=== PATIENT | female | born 1965 | race Caucasian/White ===

== ENCOUNTER 2017-04-08 10:31 | Emergency (ER) | payer MEDICARE, MEDICAID ==
[2017-04-08 14:07] VITALS: BP 142/93
--- NOTE | 2017-04-09 15:06 | ER ---
DATE SEEN: 04/08/2017 CHIEF COMPLAINT: Tick bite. HISTORY OF PRESENT ILLNESS: Lakeshia is a 52-year-old woman, a smoker, who sleeps with her dog at night, has chronic low back pain secondary to previous back surgery, status post gastric bypass years ago, 96 pounds weight loss, absent upper teeth, and status post hysterectomy, bilateral BSO. Comes in with history of a tick bite noted 6 to 7 days ago. The tick was on her skin. She is not sure how long it was present. It was on her superior bra line, left subscapular region. She was seen by Dr. Mason at [place] on 04/06/2017 (2 days ago). The tick bite occurred approximately 6 to 8 days ago. She is not sure if she noted this at 6 days ago tick bite, but it could have been present longer than that, she is not certain how long it has been. She has associated symptoms of tiredness, extremely lightheaded. Feels chills, hot and cold, and weak and malaise. She started doxycycline [address] Mason 100 mg b.i.d. She describes the lesion as a target lesion. PAST MEDICAL HISTORY: No past medical history or other serious illnesses except as noted above. Other past medical history; migraines, chronic low back pain, suicidal ideation, depression, and chronic pain syndrome associated with the back. REVIEW OF SYSTEMS: Negative except as noted above. ALLERGIES: Adhesive, Amoxil, cephalexin, and sulbactam. MEDICATIONS: 1. Hydroxyzine 25 mg q.6 hours. 2. Acetaminophen with caffeine - Excedrin for tension headache. 3. Alprazolam 0.5 mg b.i.d. as needed. 4. Morphine sulfate. 5. MS Contin 60 mg q.12 hours. 6. Prozac 80 mg daily. OTHER DIAGNOSES: 1. Migraine. 2. Depression. 3. Chronic pain syndrome. 4. Suicidal ideation. 5. Low back pain. 6. Smoker. PHYSICAL EXAMINATION: VITAL SIGNS: Blood pressure 148/88, heart rate 70, respirations 18, oxygen saturation 100%, and temperature is 36.8 degrees centigrade. HEENT: PERRLA intact. The patient is asthenic. GENERAL/CONSTITUTIONAL: Somewhat thin, short stature, moderate [place] feet (reflecting her smoking), in mild distress and just concerned about the tick bite. HEENT: PERRLA intact. Pharynx without abnormality. No thyromegaly or masses. NECK: No cervical adenopathy. LUNGS: Clear to auscultation without rales, rhonchi, or wheezes. HEART: S1, S2. No murmur. No irregular rate or rhythm. ABDOMEN: Soft. No hepatosplenomegaly, guarding, or abdominal discomfort. DERMIS: Negative except for noted the 3.3 cm superior bra line insect bite, very close to the left posterior axillary line. She has mild central clearing with eschar centrally about 3 mm and peripheral mild erythema. No palpable ridge. No axillary adenopathy. Old scar noted in the lumbar region. NEUROLOGIC: Deep tendon reflexes hypoactive upper and lower extremities. Cranial nerves 2 through 12 intact. Oriented x3. ASSESSMENT: 1. Tick bite. 2. Probable Lyme's. 3. She has a picture of the tick and the tick did not have red discoloration, however, it is difficult to tell on the basis of the light even though she had good light but the tick is mostly a black appearance, looks like a common wood tick and not Ixodes. 4. She has associated mild headache, moderate tiredness, moderate lightheadedness, and slight sore throat. She has chills, hot and cold feeling, and mild arthritis in the PCP joint, right greater than left. No erythema of the hands. No other arthritis. Repeat neurological exam, the patient does not have ataxia. There is no past-pointing. Cranial nerves 2 through 12 intact. The cranial nerve 7 sensation is intact. No asymmetry of the face. No dysesthesia of the face. She is oriented x3 and gait is appropriate. No ataxia. She has no scleral icterus. LABORATORY FINDINGS: White count is normal at 7100, PMNs 59, lymphs 30, platelets 303,000, and hemoglobin 13.7 (no thrombocytopenia, no anemia, no low hemoglobin, no neutrophilia, no suggestion of hemolysis). Complete metabolic panel is normal. Sodium 136, potassium 3.6, chloride 102, CO2 of 28, BUN 7, creatinine 0.6, GFR greater than 60, glucose 104, uric acid 4.4, calcium normal at 8.8, AST 16, ALT is low at 11, alkaline phosphatase is the only laboratory in the complete metabolic panel that is elevated and is 155, normal is less than 154, so there is minimal elevation of alkaline phosphatase. Amylase is normal at 32. Blood cultures obtained. PCR for babesiosis and PCR for anaplasmosis have been ordered. PLAN: Status was discussed with Dr. Mcgovern, Infectious Disease, [place]. I had a wonderful consultation with Dr. Mcgovern. He provided the following comments: 1. He did not think this was Lyme disease; however, this is remotely possible. And if it is, it is the early signs. 2. The malaise, tiredness, and lightheadedness might be related to dehydration - the patient is not dehydrated, consequently it is not dehydration. 3. These symptoms may be related to Jarisch-Herxheimer reaction, which is very common. 4. It could be a drug-like mediated reaction. 5. It could be early lupus drug reaction, which is unlikely. 6. Also she could have mild gout (she has normal uric acid, the probability of gout is low). To summarize, she has simply localized reaction. No vertigo. No [place] symptoms. No signs suggestive of latent Lyme's or no suggestion of babesiosis. If she has babesiosis, the lab test would come back abnormal, and she could be treated later. It is not critical on the basis of this discussion. Also the literature suggests with Lyme's, target lesions are infrequent with central clearing 9% of the time, central erythema 32% of the time, and homogeneous erythema 59% of the time (The notion of target lesion is not altogether uniform and is less than the expected - these are in patient's who had documented PCR Lyme disease). Dr. Mcgovern also noted that the patient can sometimes have drug reaction-like symptoms with doxycycline - malaise, tiredness, and feel miserable with the doxycycline and it is not unusual. The symptoms the patient has been having may not truly be from Lyme's, but may be from the doxycycline. The patient was reassured that she is menopausal, not , as she started the doxycycline. Followup with doctor in a week. The patient does not have streptococcal pharyngitis. The patient is informed of this information. Initially, the patient wanted very much to be admitted to the hospital. She feels miserable. Per discussion with Dr. Mcgovern, the patient does not have latent Lyme's, does not require Rocephin IV or IM on a daily basis. He also stated it is not unusual to have a drug reaction to doxycycline, which makes patients feel sick. /[id number] ALCON/TYLER
== END 2017-04-08 14:20 | disposition home or self-care (01) ==
LOC: FB.ED 10:31
DX: S20.362A Insect bite (nonvenomous) of left front wall of thorax, initial encounter (principal); R51 Headache; R42 Dizziness and giddiness; J02.9 Acute pharyngitis, unspecified; Z88.1 Allergy status to other antibiotic agents; Z88.8 Allergy status to other drugs, medicaments and biological substances; Z79.899 Other long term (current) drug therapy
CPT/HCPCS: 36415; 80053; 82150; 83615; 84550; 85025; 86666; 87040; 87081; 87430; 87798; 88104; 99283

== ENCOUNTER 2017-11-03 08:30 | Day surgery (SDC) | payer MEDICARE, MEDICAID ==
[2017-11-03] MEDS ORDERED: Lidocaine 2% 100 MG/5 ML Syringe IVPUSH ONE (10:00)
[2017-11-03] MEDS ORDERED: Midazolam 1 MG/ML 2 ML SDV IV ONE (10:00)
[2017-11-03] MEDS ORDERED: Lactated Ringers 1,000 ML IV SCH (10:00)
[2017-11-03] MEDS ORDERED: Sodium Chloride 0.9% 10 ML Syringe FLUSH PRN (10:00)
[2017-11-03] MEDS ORDERED: Propofol 200 MG/20 ML SDV IV ONE (10:00)
--- NOTE | 2017-11-03 11:38 | OR ---
DATE OF OPERATION: 11/03/2017 SURGEON: Zafar Huber MD PROCEDURE PERFORMED: Upper endoscopy. PREOPERATIVE DIAGNOSES: Epigastric abdominal pain, status post gastric bypass. POSTOPERATIVE DIAGNOSIS: Esophagitis. INDICATIONS FOR PROCEDURE: This is a 52-year-old white female, who is referred with a history of some epigastric abdominal discomfort. She was offered and accepted upper endoscopy. She had a gastric bypass performed about 4 years ago. DESCRIPTION OF OPERATION: After an excellent IV sedation was administered, the bite-block was inserted. The flexible endoscope was passed without difficulty down the patient's esophagus and the GE junction measured approximately 40 cm. A small gastric remnant was encountered and the Margie limb was encountered. The following findings were noted. On both limbs of the gastric bypass, Margie limb are unremarkable. The gastric pouch is not noted to be markedly enlarged and shows no signs of inflammation. The GE junction noted some signs of irritation. Biopsies were taken. The remainder of the esophageal exam was unremarkable. The scope was removed. The patient tolerated the procedure well, and was taken to recovery room in good condition. /[id number] /NICHOLEL
== END 2017-11-03 11:20 | disposition home or self-care (01) ==
LOC: FB.SDS 08:30
PROVIDERS: ATTEND Surgery
DX: K29.50 Unspecified chronic gastritis without bleeding (principal); K20.9 Esophagitis, unspecified; F33.2 Major depressive disorder, recurrent severe without psychotic features; F41.1 Generalized anxiety disorder; M54.5 Low back pain; G89.29 Other chronic pain; Z88.1 Allergy status to other antibiotic agents; Z88.2 Allergy status to sulfonamides; Z88.8 Allergy status to other drugs, medicaments and biological substances; Z91.09 Other allergy status, other than to drugs and biological substances; Z79.899 Other long term (current) drug therapy; Z98.84 Bariatric surgery status; J45.909 Unspecified asthma, uncomplicated; F17.210 Nicotine dependence, cigarettes, uncomplicated
CPT/HCPCS: 00740; 43239; 88305; 88313; J2250; J2704; J7120

== ENCOUNTER 2018-03-15 10:52 | Emergency (ER) | payer MEDICARE, MEDICAID ==
[2018-03-15] MEDS ORDERED: Morphine 2 MG/ML Syringe IVPUSH ONE ×4 (11:27→13:15)
[2018-03-15] MEDS: Sodium Chloride 0.9% 10 ML Syringe FLUSH PRN ×2 (11:38→13:38)
[2018-03-15] MEDS ORDERED: Morphine 4 MG/ML Syringe IVPUSH ONE (12:45)
[2018-03-15] MEDS ORDERED: Morphine 2 MG/ML Syringe ONE (13:32)
--- NOTE | 2018-03-15 13:54 | CT ---
INDICATION: Trauma. Fell. CT PELVIS WITHOUT CONTRAST: Spiral 2.5-mm axial sections were obtained through the pelvis with sagittal and coronal reconstructions and revealed evidence of disk spacers at L4-5 and L5-S1, which appear to be intact. Sacroiliac joints and hip joints appear to be intact with degenerative changes at those joints, including some narrowing at the hip joint spaces cranial laterally. Hypertrophic spurring is present at sacroiliac and hip joints. A fracture or dislocation was not identified. IMPRESSION: 1. No acute fracture or dislocation. 2. Osteoarthritis with hypertrophic spurring at the hip joints and sacroiliac joints and suggestion of mild narrowing at the cranial lateral aspects of the hip joints, left slightly greater than right. Total Exam DLP = 840.85 mGy-cm. MTDD
--- NOTE | 2018-03-15 14:21 | CT ---
INDICATION: Chronic pain, fell backwards. Pain at posterior pelvis and above surgical site. History of L4-5 fusion in 2011. History of laminectomy 1987, 1991. CT LUMBOSACRAL SPINE: Spiral 2.5-mm axial sections were obtained through the lumbosacral spine with sagittal and coronal reconstructions and reconstructions through the disk spaces of L3-4, L4-5, and L5-S1. Total Exam DLP = 839.00 mGy-cm. Fusions are noted at L2-3 and L3-4 with separate plates and 4 screws for each plate at the L2-3 and L3-4 vertebral bodies, with the plates being on the right lateral aspect of the vertebral bodies. At L4-5 and L5-S1, disk spacers x2 each are noted at those disk spaces. Bridging hyperostotic change is noted left laterally at the L2-3, L3-4 levels. The plates and screws appear to be intact. Disk spacers are also noted at the L2-3 and L3-4 levels. The post-surgical appearance is satisfactory. Laminectomies are noted on the left at L5 with minimal bilateral laminectomy at L4. No definite complicating process was identified. No definite fracture or dislocation was seen. Vertebral body heights were maintained. IMPRESSION: 1. No definite acute fracture or dislocation. 2. Fairly extensive surgery with fusions and disk spacers. Report was called to Dr. Carroll at 1219 hours, 03/15/2018. [facility]
--- NOTE | 2018-03-15 14:22 | EDM.PDOC ---
ED HPI GENERAL MEDICAL PROBLEM - General Chief Complaint: Back Pain or Injury Stated Complaint: LEFT BACK PAIN Time Seen by Provider: 03/15/18 10:52 Source of Information: Reports: Patient, EMS History Limitations: Reports: Physical Impairment (chronic pain syndrome) - History of Present Illness INITIAL COMMENTS - FREE TEXT/NARRATIVE: 53 y.o.w.f with a h/o chronic pain syndrome came to the ed after her right leg gave out and she fell onto her lower back and pelvis. Pt was brought by ems the ed on a long back board, Ramos collar was applied by the nurse initially. HEENT nl, neck: Nl, Pt was turned to the left side as a unit. The did not show a step off sign, however she was tender at her mid lower back and buttock bilaterally. Neuro: No focal weakness. Her BP was 135/87 pulse was 76 RR 16 Pulse ox was 100 , temp 36.6 2 MG of MS were given i.v, ICE was applied to the affected pain full areas. JNo N/V/D. no lightheadedness. Onset Date: 03/15/18 Onset Time: 08:00 Duration: Hour(s): Location: Reports: Back, Pelvis Quality: Reports: Ache, Dull, Pressure, Same as Previous Episode Severity: Moderate Improves with: Reports: Rest Worsens with: Reports: Movement Context: Reports: Trauma (fall to lower back and pelvis) Associated Symptoms: Reports: No Other Symptoms mid back pain Pain Score (Numeric/FACES): 10 - Related Data Allergies Allergy/AdvReac Type Severity Reaction Status Date / Time adhesive Allergy irritated Verified 03/15/18 12:15 skin ampicillin [From Unasyn] Allergy Itching Verified 03/15/18 12:15 ampicillin sodium Allergy Rash Verified 03/15/18 12:15 [From Unasyn] carisoprodol [From Soma] Allergy Confusion Verified 03/15/18 12:15 cephalexin [Cephalexin] Allergy Rash Verified 03/15/18 12:15 omega-3 acid ethyl esters Allergy Rash Verified 03/15/18 12:15 quetiapine [From Seroquel] Allergy Confusion Verified 03/15/18 12:15 sulbactam [From Unasyn] Allergy Itching Verified 03/15/18 12:15 sulbactam sodium Allergy Rash Verified 03/15/18 12:15 [From Unasyn] Home Meds: Home Meds Morphine Sulfate [Ms Contin] 60 mg PO Q12H #11 tablet.er 03/25/16 [Rx] ClonazePAM [KlonoPIN] 1 tab PO ASDIRECTED PRN 11/02/17 [History] FLUoxetine HCl [Fluoxetine HCl] 80 mg PO DAILY 11/02/17 [History] Omeprazole 1 cap PO DAILY 11/02/17 [History] Ondansetron [Zofran] 4 mg PO TID PRN 11/02/17 [History] Past Medical History HEENT History: Reports: Impaired Vision Cardiovascular History: Reports: High Cholesterol, Hypertension Respiratory History: Reports: Asthma Gastrointestinal History: Reports: Irritable Bowel Syndrome, [employer] History: Reports: 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, Other OB/BYN History: hysterectomy Musculoskeletal History: Reports: Arthritis, Back Pain, Chronic Other Musculoskeletal History: back fusion Neurological History: Reports: Migraines Psychiatric History: Reports: Anxiety, Depression Endocrine/Metabolic History: Reports: Obesity/BMI 30+ - Past Surgical History GI Surgical History: Reports: Appendectomy, Cholecystectomy, Other (See Below) Other GI Surgeries/Procedures: gastric bypass Female Surgical History: Reports: Hysterectomy Other Musculoskeletal Surgeries/Procedures:: BACK SURGERY Social & Family History - Family History Family Medical History: Noncontributory - Tobacco Use Smoking Status *Q: Current Every Day Smoker Years of Tobacco use: 30 Packs/Tins Daily: 1 Used Tobacco, but Quit: No Second Hand Smoke Exposure: Yes - Caffeine Use Caffeine Use: Reports: Soda - Recreational Drug Use Recreational Drug Use: No - Living Situation & Occupation Living situation: Reports: ED ROS GENERAL - Review of Systems Review Of Systems: See Below Constitutional: Reports: No Symptoms HEENT: Reports: No Symptoms Respiratory: Reports: No Symptoms Cardiovascular: Reports: No Symptoms Endocrine: Reports: No Symptoms GI/Abdominal: Reports: No Symptoms : Reports: No Symptoms Musculoskeletal: Reports: Back Pain, Muscle Pain Skin: Reports: No Symptoms Neurological: Reports: Difficulty Walking (due to back pain) Psychiatric: Reports: No Symptoms Hematologic/Lymphatic: Reports: No Symptoms Immunologic: Reports: No Symptoms ED EXAM,LOWER BACK PAIN/INJURY - Physical Exam Exam: See Below Exam Limited By: Physical Impairment General Appearance: Alert, WD/WN, Mild Distress Eye Exam: Bilateral Eye: Normal Inspection Ears: Normal External Exam Nose: Normal Inspection Throat/Mouth: Normal Inspection, Normal Lips Head: Atraumatic, Normocephalic Neck: Normal Inspection, Supple, Non-Tender, Full Range of Motion Respiratory/Chest: No Respiratory Distress, Lungs Clear, Normal Breath Sounds, Chest Non-Tender Cardiovascular: Normal Peripheral Pulses, Regular Rate, Rhythm, No Edema, No Gallop, No JVD, No Murmur GI/Abdominal: Normal Bowel Sounds, Soft, Non-Tender, No Organomegaly, No Distention, No Abnormal Bruit, No Mass, Pelvis Stable (Female) Exam: Deferred Rectal (Female) Exam: Deferred Back Exam: Normal Inspection, Decreased Range of Motion (due to pain), Muscle Spasm Extremities: Normal Inspection, Normal Range of Motion, Non-Tender, No Pedal Edema, Normal Capillary Refill Neurological: Alert, Normal Mood/Affect, CN II-XII Intact, Oriented x 3 Psychiatric: Depressed Mood Skin Exam: Warm, Dry, Intact, Normal Color, No Rash Lymphatic: No Adenopathy Course - Vital Signs Text/Narrative:: 53 y.o.w.f with a h/o chronic pain syndrome came to the ed after her right leg gave out and she fell onto her lower back and pelvis. Pt was brought by ems the ed on a long back board, Ramos collar was applied by the nurse initially. HEENT nl, neck: Nl, Pt was turned to the left side as a unit. The did not show a step off sign, however she was tender at her mid lower back and buttock bilaterally. Neuro: No focal weakness. Her BP was 135/87 pulse was 76 RR 16 Pulse ox was 100 , temp 36.6 2 MG of MS were given i.v, ICE was applied to the affected pain full areas. JNo N/V/D. no lightheadedness PE: 53 y.o.w.f with a h/o chronic pain syndrome came to the ed by EMS after a fall to her lower back, unable to walk due to pain. Imaging: CT of lumbar spine and pelvis were neg as per RAD Labs: Not indicated. Impression: Chronic pain syndrome, fall, with lower back pain Tx: Ice, MS, Reexam: Improved. Pt was able to ambulate on D/C Plan: D/C with instructions. Last Recorded V/S: Last Vital Signs Temp 36.7 C 03/15/18 14:30 Pulse 75 03/15/18 14:30 Resp 18 03/15/18 14:30 BP 137/99 H 03/15/18 14:30 Pulse Ox 100 03/15/18 14:30 - Orders/Labs/Meds Meds: Medications Discontinued Medications Generic Name Dose Route Start Last Admin Trade Name Markyq PRN Reason Stop Dose Admin Morphine Sulfate 1 mg 03/15/18 11:27 03/15/18 11:45 Morphine IVPUSH 03/15/18 11:28 1 mg ONETIME ONE Administration Morphine Sulfate 1 mg 03/15/18 13:15 03/15/18 13:27 Morphine IVPUSH 03/15/18 13:16 1 mg ONETIME ONE Administration Morphine Sulfate Confirm 03/15/18 13:32 Morphine Administered 03/15/18 13:33 Dose 2 mg .ROUTE .STK-MED ONE Sodium Chloride 10 ml 03/15/18 11:37 03/15/18 13:38 Saline Flush FLUSH 03/15/18 14:00 10 ml ASDIRECTED PRN Administration IV Use Departure - Departure Time of Disposition: 14:19 Disposition: Home, Self-Care 01 Condition: Good Clinical Impression: Chronic pain Qualifiers: Chronic pain type: chronic pain syndrome Qualified Code(s): G89.4 - Chronic pain syndrome Injury of back due to fall Qualifiers: Encounter type: subsequent encounter Qualified Code(s): S39.92XD - Unspecified injury of lower back, subsequent encounter - Discharge Information Instructions: Chronic Pain, Adult Referrals: Jabari Mason MD [Primary Care Provider] - Forms: ED Department Discharge Additional Instructions: Please apply ice to the affected areas, please cont your meds, follow up with the pain clinic, come back if your symptoms get worse acutely
[2018-03-15 14:40] VITALS: BP 137/99
== END 2018-03-15 14:30 | disposition home or self-care (01) ==
LOC: FB.ED 10:52
DX: G89.4 Chronic pain syndrome (principal); S39.92XD Unspecified injury of lower back, subsequent encounter; F17.210 Nicotine dependence, cigarettes, uncomplicated; I10 Essential (primary) hypertension; F41.9 Anxiety disorder, unspecified; F32.9 Major depressive disorder, single episode, unspecified; J45.909 Unspecified asthma, uncomplicated; Z79.899 Other long term (current) drug therapy; Z88.1 Allergy status to other antibiotic agents; Z88.8 Allergy status to other drugs, medicaments and biological substances; Z91.09 Other allergy status, other than to drugs and biological substances; W19.XXXD Unspecified fall, subsequent encounter
CPT/HCPCS: 72131; 72192; 96374; 96376; 99284; J2270; J7050

== ENCOUNTER 2018-07-12 07:21 | Observation (INO) | payer MEDICARE, MEDICAID ==
[2018-07-12] MEDS ORDERED: HYDROmorphone 2 MG/ML SDV IM ONE ×3 (08:00→11:29)
--- NOTE | 2018-07-12 08:07 | EDM.PDOC ---
ED HPI GENERAL MEDICAL PROBLEM - General Chief Complaint: Behavioral/Psych Stated Complaint: BACK PAIN Time Seen by Provider: 07/12/18 08:01 Source of Information: Reports: Patient, EMS, EMS Notes Reviewed, Old Records History Limitations: Reports: No Limitations - History of Present Illness INITIAL COMMENTS - FREE TEXT/NARRATIVE: Lakeshia comes into [facility] ED by EMS with ongoing issues with chronic low back pain, frustration with pain managment, and arguments with spouse over managment. She wrote a note expressing suicidal ideation and threats to OD on her home meds, and he dumped her meds out 2 days ago. She usually takes MS Contin 60 mg bid. She is tearful, anxious, depressed, and feels hopeless. Her back pain remains chronic but stable, without any new neurologic sxs. Her PCP has arranged an appt at a Pain Clinic in [place], [place] for tomorrow. back Pain Score (Numeric/FACES): 10 - Related Data Allergies Allergy/AdvReac Type Severity Reaction Status Date / Time adhesive Allergy irritated Verified 07/12/18 09:04 skin ampicillin [From Unasyn] Allergy Itching Verified 07/12/18 09:04 ampicillin sodium Allergy Rash Verified 07/12/18 09:04 [From Unasyn] carisoprodol [From Soma] Allergy Confusion Verified 07/12/18 09:04 cephalexin [Cephalexin] Allergy Rash Verified 07/12/18 09:04 omega-3 acid ethyl esters Allergy Rash Verified 07/12/18 09:04 quetiapine [From Seroquel] Allergy Confusion Verified 07/12/18 09:04 sulbactam [From Unasyn] Allergy Itching Verified 07/12/18 09:04 sulbactam sodium Allergy Rash Verified 07/12/18 09:04 [From Unasyn] Home Meds: Home Meds Morphine Sulfate [Ms Contin] 60 mg PO Q12H #11 tablet.er 03/25/16 [Rx] ClonazePAM [KlonoPIN] 1 tab PO ASDIRECTED PRN 11/02/17 [History] FLUoxetine HCl [Fluoxetine HCl] 80 mg PO DAILY 11/02/17 [History] Omeprazole 1 cap PO DAILY 11/02/17 [History] Ondansetron [Zofran] 4 mg PO TID PRN 11/02/17 [History] Past Medical History HEENT History: Reports: Impaired Vision Cardiovascular History: Reports: High Cholesterol, Hypertension Respiratory History: Reports: Asthma Gastrointestinal History: Reports: Irritable Bowel Syndrome, PUD 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: 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, Other ANTIQUE FURNITURE REPAIRER History: hysterectomy Musculoskeletal History: Reports: Arthritis, Back Pain, Chronic Other Musculoskeletal History: back fusion Neurological History: Reports: Migraines Psychiatric History: Reports: Anxiety, Depression Endocrine/Metabolic History: Reports: Obesity/BMI 30+ - Past Surgical History GI Surgical History: Reports: Appendectomy, Cholecystectomy, Other (See Below) Other GI Surgeries/Procedures: gastric bypass Female Surgical History: Reports: Hysterectomy Other Musculoskeletal Surgeries/Procedures:: BACK SURGERY Social & Family History - Family History Family Medical History: Noncontributory - Caffeine Use Caffeine Use: Reports: Soda - Living Situation & Occupation Living situation: Reports: ED ROS GENERAL - Review of Systems Review Of Systems: See Below Constitutional: Reports: Malaise, Weakness, Decreased Appetite HEENT: Reports: No Symptoms Respiratory: Reports: No Symptoms Cardiovascular: Reports: No Symptoms Endocrine: Reports: No Symptoms GI/Abdominal: Reports: Decreased Appetite : Reports: No Symptoms Musculoskeletal: Reports: Back Pain Skin: Reports: No Symptoms Neurological: Reports: Headache, Pre-Existing Deficit Psychiatric: Reports: Anxiety, Depression, Suicidal Ideation Hematologic/Lymphatic: Reports: No Symptoms Immunologic: Reports: No Symptoms ED EXAM,LOWER BACK PAIN/INJURY - Physical Exam Exam: See Below General Appearance: Alert, WD/WN, Anxious, Mild Distress Eye Exam: Bilateral Eye: EOMI, Normal Inspection, PERRL Ears: Normal External Exam Nose: Normal Inspection Throat/Mouth: Normal Lips, Normal Oropharynx, Normal Voice, No Airway Compromise Head: Normocephalic Neck: Normal Inspection, Supple, Full Range of Motion Respiratory/Chest: No Respiratory Distress, Lungs Clear, Normal Breath Sounds, No Accessory Muscle Use Cardiovascular: Normal Peripheral Pulses, No Edema, No Gallop, No JVD, No Murmur , Tachycardia GI/Abdominal: Normal Bowel Sounds, Soft, Non-Tender, No Organomegaly, No Distention, No Abnormal Bruit, No Mass (Female) Exam: Deferred Rectal (Female) Exam: Deferred Back Exam: Other (well healed scars from prior back surgeries, no spasm, limited midline tenderness to palpation) Extremities: Normal Inspection, Non-Tender, No Pedal Edema Neurological: Alert, CN II-XII Intact, Normal Plantar Flexion Psychiatric: Anxious, Depressed Mood Skin Exam: Warm, Dry, Intact Lymphatic: No Adenopathy Course - Vital Signs Text/Narrative:: Following assessment at the [facility] ED, I administered Dilaudid 2 mg IM and arranged for a TelePsych Consult who recommended transfer to a treatment facility. An additional Dilaudid 2 mg IM and Ativan 1 mg po was administered. Efforts at placement were unsuccessful until pain managment is secured. Case was discussed with hospitalist, and she will be admitted to an Observation bed for pain management. Last Recorded V/S: Last Vital Signs Temp 37.2 C 07/12/18 09:55 Pulse 61 07/12/18 09:55 Resp 14 07/12/18 09:55 BP 117/66 07/12/18 09:55 Pulse Ox 100 07/12/18 09:55 - Orders/Labs/Meds Orders: Active Orders 24 hr Category Date Time Status DRUG SCREEN, URINE ALERE [URCHEM] Stat Lab 07/12/18 09:17 Ordered Labs: Laboratory Tests 07/12/18 07/12/18 07/12/18 Range/Units 09:00 09:00 09:00 WBC 11.3 (4.5-12.0) X10-3/uL RBC 5.20 (3.23-5.20) x10(6)uL Hgb 15.7 H (11.5-15.5) g/dL Hct 46.6 (30.0-51.3) % MCV 89.5 (80-96) fL MCH 30.2 (27.7-33.6) pg MCHC 33.7 (32.2-35.4) g/dL RDW 12.7 (11.5-15.5) % Plt Count 341 (125-369) X10(3)uL MPV 7.7 (7.4-10.4) fL Neut % (Auto) 81.3 (46-82) % Lymph % (Auto) 14.9 (13-37) % [place] % (Auto) 2.9 L (4-12) % Eos % (Auto) 0 L (1.0-5.0) % Baso % (Auto) 1 (0-2) % Neut # (Auto) 9.2 H (1.6-8.3) # Lymph # (Auto) 1.7 (0.6-5.0) # [place] # (Auto) 0.3 (0.0-1.3) # Eos # (Auto) 0.0 (0.0-0.8) # Baso # (Auto) 0.1 (0.0-0.2) # Sodium 140 (135-145) mmol/L Potassium 4.4 (3.5-5.3) mmol/L Chloride 105 (100-110) mmol/L Carbon Dioxide 30 (21-32) mmol/L BUN 9 (7-18) mg/dL Creatinine 0.7 (0.55-1.02) mg/dL Est Cr Clr Drug Dosing 90.38 mL/min Estimated GFR (MDRD) > 60 (>60) BUN/Creatinine Ratio 12.9 (9-20) Glucose 96 (80-116) mg/dL Calcium 9.1 (8.6-10.2) mg/dL Total Bilirubin 0.6 (0.1-1.3) mg/dL AST 46 H (5-25) IU/L ALT 29 (12-36) U/L Alkaline Phosphatase 215 H (56-112) IU/L Total Protein 7.3 (6.0-8.0) g/dL Albumin 3.5 (3.5-5.2) g/dL Globulin 3.8 g/dL Albumin/Globulin Ratio 0.9 TSH, Ultra Sensitive 0.97 (0.36-3.74) IU/mL Urine Color (YELLOW) Urine Appearance (CLEAR) Urine pH (5.0-6.5) Ur Specific [place] (1.010-1.025) Urine Protein (NEGATIVE) mg/dL Urine Glucose (UA) (NEGATIVE) mg/dL Urine Ketones (NEGATIVE) mg/dL Urine Occult Blood (NEGATIVE) Urine Nitrite (NEGATIVE) Urine Bilirubin (NEGATIVE) Urine Urobilinogen (NEGATIVE) mg/dL Ur Leukocyte Esterase (NEGATIVE) Urine WBC (0) Ur Squamous Epith Cells (NS,R,O) Urine Bacteria (NS) Salicylates 7.7 (2.8-20.0) mg/dL Urine Opiates Screen (NEGATIVE) Ur Oxycodone Screen (NEGATIVE) Ur Propoxyphene Screen (NEGATIVE) Acetaminophen < 2 L (10-30) ug/mL Ur Barbituates Screen (NEGATIVE) Ur Tricyclics Screen (NEGATIVE) Ur Phencyclidine Scrn (NEGATIVE) Ur Amphetamine Screen (NEGATIVE) Urine MDMA Screen (NEGATIVE) U Benzodiazepines Scrn (NEGATIVE) U Cocaine Metab Screen (NEGATIVE) U Marijuana (THC) Screen (NEGATIVE) Ethyl Alcohol < 0.03 (<0.03) % 07/12/18 07/12/18 Range/Units 09:17 09:17 WBC (4.5-12.0) X10-3/uL RBC (3.23-5.20) x10(6)uL Hgb (11.5-15.5) g/dL Hct (30.0-51.3) % MCV (80-96) fL MCH (27.7-33.6) pg MCHC (32.2-35.4) g/dL RDW (11.5-15.5) % Plt Count (125-369) X10(3)uL MPV (7.4-10.4) fL Neut % (Auto) (46-82) % Lymph % (Auto) (13-37) % [place] % (Auto) (4-12) % Eos % (Auto) (1.0-5.0) % Baso % (Auto) (0-2) % Neut # (Auto) (1.6-8.3) # Lymph # (Auto) (0.6-5.0) # [place] # (Auto) (0.0-1.3) # Eos # (Auto) (0.0-0.8) # Baso # (Auto) (0.0-0.2) # Sodium (135-145) mmol/L Potassium (3.5-5.3) mmol/L Chloride (100-110) mmol/L Carbon Dioxide (21-32) mmol/L BUN (7-18) mg/dL Creatinine (0.55-1.02) mg/dL Est Cr Clr Drug Dosing mL/min Estimated GFR (MDRD) (>60) BUN/Creatinine Ratio (9-20) Glucose (80-116) mg/dL Calcium (8.6-10.2) mg/dL Total Bilirubin (0.1-1.3) mg/dL AST (5-25) IU/L ALT (12-36) U/L Alkaline Phosphatase (56-112) IU/L Total Protein (6.0-8.0) g/dL Albumin (3.5-5.2) g/dL Globulin g/dL Albumin/Globulin Ratio TSH, Ultra Sensitive (0.36-3.74) IU/mL Urine Color Yellow (YELLOW) Urine Appearance Clear (CLEAR) Urine pH 8.0 H (5.0-6.5) Ur Specific [place] 1.015 (1.010-1.025) Urine Protein Negative (NEGATIVE) mg/dL Urine Glucose (UA) Normal (NEGATIVE) mg/dL Urine Ketones Negative (NEGATIVE) mg/dL Urine Occult Blood Negative (NEGATIVE) Urine Nitrite Negative (NEGATIVE) Urine Bilirubin Negative (NEGATIVE) Urine Urobilinogen Normal (NEGATIVE) mg/dL Ur Leukocyte Esterase Negative (NEGATIVE) Urine WBC 0-5 (0) Ur Squamous Epith Cells Occasional (NS,R,O) Urine Bacteria Few H (NS) Salicylates (2.8-20.0) mg/dL Urine Opiates Screen Positive H (NEGATIVE) Ur Oxycodone Screen Negative (NEGATIVE) Ur Propoxyphene Screen Negative (NEGATIVE) Acetaminophen (10-30) ug/mL Ur Barbituates Screen Negative (NEGATIVE) Ur Tricyclics Screen Negative (NEGATIVE) Ur Phencyclidine Scrn Negative (NEGATIVE) Ur Amphetamine Screen Negative (NEGATIVE) Urine MDMA Screen Negative (NEGATIVE) U Benzodiazepines Scrn Positive H (NEGATIVE) U Cocaine Metab Screen Negative (NEGATIVE) U Marijuana (THC) Screen Negative (NEGATIVE) Ethyl Alcohol (<0.03) % Meds: Medications Discontinued Medications Generic Name Dose Route Start Last Admin Trade Name Freq PRN Reason Stop Dose Admin Hydromorphone HCl 2 mg 07/12/18 08:00 07/12/18 08:15 Dilaudid IM 07/12/18 08:01 2 mg ONETIME ONE Administration Hydromorphone HCl 1 mg 07/12/18 11:17 Dilaudid IM 07/12/18 11:18 ONETIME ONE Hydromorphone HCl 2 mg 07/12/18 11:29 07/12/18 11:45 Dilaudid IM 07/12/18 11:30 2 mg ONETIME ONE Administration Lorazepam 1 mg 07/12/18 11:17 07/12/18 11:43 Ativan PO 07/12/18 11:18 1 mg ONETIME ONE Administration Departure - Departure Time of Disposition: 12:03 Disposition: Refer to Observation Condition: Poor Clinical Impression: Low back pain, Suicidal ideation - Discharge Information *PRESCRIPTION DRUG MONITORING PROGRAM REVIEWED*: No *COPY OF PRESCRIPTION DRUG MONITORING REPORT IN PATIENT LORRAINE: No Referrals: PCP,None [Ordering Only Provider] - Forms: ED Department Discharge - Problem List & Annotations (1) Low back pain SNOMED Code(s): 558281033 Code(s): M54.5 - LOW BACK PAIN Status: Acute Current Visit: Yes Annotation/Comment:: admit to Observation, pain management (2) Suicidal ideation SNOMED Code(s): 2729125 Code(s): R45.851 - SUICIDAL IDEATIONS Status: Acute Current Visit: Yes Annotation/Comment:: will observe for any escalation of dysfunctional behaviors during pain managment. - Problem List Review Problem List Initiated/Reviewed/Updated: Yes - My Orders Last 24 Hours: My Active Orders 07/12/18 09:17 DRUG SCREEN, URINE ALERE [URCHEM] Stat - Assessment/Plan Last 24 Hours: My Active Orders 07/12/18 09:17 DRUG SCREEN, URINE ALERE [URCHEM] Stat Plan: Follow up with hospitalist.
[2018-07-12 09:42] LABS: ACETAMINOPHEN < 2 ug/mL (10-30)
[2018-07-12] MEDS ORDERED: LORazepam 1 MG Tab PO ONE (11:17)
[2018-07-12] MEDS ORDERED: Morphine 60 MG Tab.ER PO SCH ×2 (12:30→13:15)
[2018-07-12] MEDS: ClonazePAM 0.5 MG Tab PO SCH (13:56)
--- NOTE | 2018-07-12 13:56 | PCM.HP ---
H&P History of Present Illness - General Date of Service: 07/12/18 Admit Problem/Dx: Admission Diagnosis/Problem Admission Diagnosis/Problem Back pain Source of Information: Patient History Limitations: Reports: No Limitations - History of Present Illness Initial Comments - Free Text/Narative: This is a 53-year-old female patient but came to the ER by ambulance after writing a note that she wanted to kill herself. She has a long standing history of depression and chronic low back pain. She states she's had 3 laminectomies and 2 fusions. She's had 2 stimulators placed and removed. He is currently on MS Contin 60 mg twice a day and Prozac 80 mg a day with some clonidine mixed in. She told her that she can live like this and she is to take her pills 3 days ago. So he took her pills out and threw them away because he didn't want her to hurt herself. When he left today she wrote a note and called the ambulance. She say says she cannot live like this with his chronic pain and was given under control. She does have a pain clinic appointment tomorrow. She is depressed, sad, suicidal thoughts with estrogen problems. She denies memory problems. She also has anxiety. She said today she had a little bit of shortness of breath or chest pain she thinks her anxiety that's improved. She was seen in the ER and they tried to refer her to a psychiatric center. They refused to take her until her pain is under control. back Pain Score (Numeric/FACES): 4 - Related Data Allergies/Adverse Reactions: Allergies Allergy/AdvReac Type Severity Reaction Status Date / Time adhesive Allergy irritated Verified 07/12/18 09:04 skin ampicillin [From Unasyn] Allergy Itching Verified 07/12/18 09:04 ampicillin sodium Allergy Rash Verified 07/12/18 09:04 [From Unasyn] carisoprodol [From Soma] Allergy Confusion Verified 07/12/18 09:04 cephalexin [Cephalexin] Allergy Rash Verified 07/12/18 09:04 omega-3 acid ethyl esters Allergy Rash Verified 07/12/18 09:04 quetiapine [From Seroquel] Allergy Confusion Verified 07/12/18 09:04 sulbactam [From Unasyn] Allergy Itching Verified 07/12/18 09:04 sulbactam sodium Allergy Rash Verified 07/12/18 09:04 [From Unasyn] Home Medications: Home Meds Morphine Sulfate [Ms Contin] 60 mg PO Q12H #11 tablet.er 03/25/16 [Rx] ClonazePAM [KlonoPIN] 0.5 mg PO BEDTIME 11/02/17 [History] FLUoxetine HCl [Fluoxetine HCl] 80 mg PO DAILY 11/02/17 [History] Omeprazole 20 cap PO DAILY PRN 11/02/17 [History] ClonazePAM [KlonoPIN] 0.25 mg PO DAILY 07/12/18 [History] Past Medical History HEENT History: Reports: Impaired Vision Cardiovascular History: Reports: High Cholesterol, Hypertension Respiratory History: Reports: Asthma, SOB Gastrointestinal History: Reports: Irritable Bowel Syndrome, PUD 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: 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, Other OB/BYN History: hysterectomy Musculoskeletal History: Reports: Arthritis, Back Pain, Chronic, Osteoarthritis Other Musculoskeletal History: back fusion Neurological History: Reports: Migraines Psychiatric History: Reports: Anxiety, Depression, Emotional Problems, Psych Hospitalization(s), Suicide Attempt, Suicidal Ideation Endocrine/Metabolic History: Reports: Obesity/BMI 30+ - Infectious Disease History Infectious Disease History: Reports: Chicken Pox, Measles - Past Surgical History Respiratory Surgical History: Reports: None GI Surgical History: Reports: Appendectomy, Cholecystectomy, Other (See Below) Other GI Surgeries/Procedures: gastric bypass Female Surgical History: Reports: Hysterectomy Other Musculoskeletal Surgeries/Procedures:: BACK SURGERY 7x Social & Family History - Family History Family Medical History: Noncontributory - Tobacco Use Smoking Status *Q: Current Every Day Smoker Years of Tobacco use: 40 Packs/Tins Daily: 1 Second Hand Smoke Exposure: No - Caffeine Use Caffeine Use: Reports: None - Recreational Drug Use Recreational Drug Use: No - Living Situation & Occupation Living situation: Reports: H&P Review of Systems - Review of Systems: Review Of Systems: See Below General: Reports: No Symptoms HEENT: Reports: No Symptoms Pulmonary: Reports: No Symptoms Cardiovascular: Reports: No Symptoms Gastrointestinal: Reports: Abdominal Pain (Lower) Genitourinary: Reports: No Symptoms Musculoskeletal: Reports: Back Pain, Joint Pain Skin: Reports: No Symptoms Psychiatric: Reports: Other (See HPI) Neurological: Reports: No Symptoms Hematologic/Lymphatic: Reports: No Symptoms Immunologic: Reports: No Symptoms Exam - Exam Exam: See Below - Vital Signs Vital Signs: Last Vital Signs Temp 97.9 F 07/12/18 12:55 Pulse 57 L 07/12/18 12:55 Resp 18 07/12/18 12:55 BP 121/65 07/12/18 12:55 Pulse Ox 96 07/12/18 12:55 Weight: 129 lb 9.6 oz - Exam General: Alert, Oriented, Cooperative, Moderate Distress HEENT: Hearing Intact, Mucosa Moist & [place], Posterior Pharynx Clear Neck: Supple, Trachea Midline, Full Range of Motion. No: Lymphadenopathy Lungs: Clear to Auscultation, Normal Respiratory Effort. No: Crackles, Rales, Rhonchi Cardiovascular: Regular Rate, Regular Rhythm. No: Systolic Murmur GI/Abdominal Exam: Normal Bowel Sounds, Soft, Non-Tender, No Distention, No Abnormal Bruit, No Mass Back Exam: Normal Inspection, Other (Scars on the spine in the thoracic region and lumbar region) Extremities: Normal Inspection, Normal Range of Motion, No Pedal Edema Neurological: Normal Speech, Normal Tone Neuro Extensive - Mental Status: Oriented x3 Psychiatric: Alert, Labile Mood, Anxious, Depressed, Suicidal Ideation - Patient Data Lab Results Last 24 hrs: Laboratory Results - last 24 hr 07/12/18 07/12/18 07/12/18 Range/Units 09:00 09:00 09:00 WBC 11.3 (4.5-12.0) X10-3/uL RBC 5.20 (3.23-5.20) x10(6)uL Hgb 15.7 H (11.5-15.5) g/dL Hct 46.6 (30.0-51.3) % MCV 89.5 (80-96) fL MCH 30.2 (27.7-33.6) pg MCHC 33.7 (32.2-35.4) g/dL RDW 12.7 (11.5-15.5) % Plt Count 341 (125-369) X10(3)uL MPV 7.7 (7.4-10.4) fL Neut % (Auto) 81.3 (46-82) % Lymph % (Auto) 14.9 (13-37) % [place] % (Auto) 2.9 L (4-12) % Eos % (Auto) 0 L (1.0-5.0) % Baso % (Auto) 1 (0-2) % Neut # (Auto) 9.2 H (1.6-8.3) # Lymph # (Auto) 1.7 (0.6-5.0) # [place] # (Auto) 0.3 (0.0-1.3) # Eos # (Auto) 0.0 (0.0-0.8) # Baso # (Auto) 0.1 (0.0-0.2) # Sodium 140 (135-145) mmol/L Potassium 4.4 (3.5-5.3) mmol/L Chloride 105 (100-110) mmol/L Carbon Dioxide 30 (21-32) mmol/L BUN 9 (7-18) mg/dL Creatinine 0.7 (0.55-1.02) mg/dL Est Cr Clr Drug Dosing 90.38 mL/min Estimated GFR (MDRD) > 60 (>60) BUN/Creatinine Ratio 12.9 (9-20) Glucose 96 (80-116) mg/dL Calcium 9.1 (8.6-10.2) mg/dL Total Bilirubin 0.6 (0.1-1.3) mg/dL AST 46 H (5-25) IU/L ALT 29 (12-36) U/L Alkaline Phosphatase 215 H (56-112) IU/L Total Protein 7.3 (6.0-8.0) g/dL Albumin 3.5 (3.5-5.2) g/dL Globulin 3.8 g/dL Albumin/Globulin Ratio 0.9 TSH, Ultra Sensitive 0.97 (0.36-3.74) IU/mL Urine Color (YELLOW) Urine Appearance (CLEAR) Urine pH (5.0-6.5) Ur Specific [place] (1.010-1.025) Urine Protein (NEGATIVE) mg/dL Urine Glucose (UA) (NEGATIVE) mg/dL Urine Ketones (NEGATIVE) mg/dL Urine Occult Blood (NEGATIVE) Urine Nitrite (NEGATIVE) Urine Bilirubin (NEGATIVE) Urine Urobilinogen (NEGATIVE) mg/dL Ur Leukocyte Esterase (NEGATIVE) Urine WBC (0) Ur Squamous Epith Cells (NS,R,O) Urine Bacteria (NS) Salicylates 7.7 (2.8-20.0) mg/dL Urine Opiates Screen (NEGATIVE) Ur Oxycodone Screen (NEGATIVE) Ur Propoxyphene Screen (NEGATIVE) Acetaminophen < 2 L (10-30) ug/mL Ur Barbituates Screen (NEGATIVE) Ur Tricyclics Screen (NEGATIVE) Ur Phencyclidine Scrn (NEGATIVE) Ur Amphetamine Screen (NEGATIVE) Urine MDMA Screen (NEGATIVE) U Benzodiazepines Scrn (NEGATIVE) U Cocaine Metab Screen (NEGATIVE) U Marijuana (THC) Screen (NEGATIVE) Ethyl Alcohol < 0.03 (<0.03) % 07/12/18 07/12/18 Range/Units 09:17 09:17 WBC (4.5-12.0) X10-3/uL RBC (3.23-5.20) x10(6)uL Hgb (11.5-15.5) g/dL Hct (30.0-51.3) % MCV (80-96) fL MCH (27.7-33.6) pg MCHC (32.2-35.4) g/dL RDW (11.5-15.5) % Plt Count (125-369) X10(3)uL MPV (7.4-10.4) fL Neut % (Auto) (46-82) % Lymph % (Auto) (13-37) % [place] % (Auto) (4-12) % Eos % (Auto) (1.0-5.0) % Baso % (Auto) (0-2) % Neut # (Auto) (1.6-8.3) # Lymph # (Auto) (0.6-5.0) # [place] # (Auto) (0.0-1.3) # Eos # (Auto) (0.0-0.8) # Baso # (Auto) (0.0-0.2) # Sodium (135-145) mmol/L Potassium (3.5-5.3) mmol/L Chloride (100-110) mmol/L Carbon Dioxide (21-32) mmol/L BUN (7-18) mg/dL Creatinine (0.55-1.02) mg/dL Est Cr Clr Drug Dosing mL/min Estimated GFR (MDRD) (>60) BUN/Creatinine Ratio (9-20) Glucose (80-116) mg/dL Calcium (8.6-10.2) mg/dL Total Bilirubin (0.1-1.3) mg/dL AST (5-25) IU/L ALT (12-36) U/L Alkaline Phosphatase (56-112) IU/L Total Protein (6.0-8.0) g/dL Albumin (3.5-5.2) g/dL Globulin g/dL Albumin/Globulin Ratio TSH, Ultra Sensitive (0.36-3.74) IU/mL Urine Color Yellow (YELLOW) Urine Appearance Clear (CLEAR) Urine pH 8.0 H (5.0-6.5) Ur Specific [place] 1.015 (1.010-1.025) Urine Protein Negative (NEGATIVE) mg/dL Urine Glucose (UA) Normal (NEGATIVE) mg/dL Urine Ketones Negative (NEGATIVE) mg/dL Urine Occult Blood Negative (NEGATIVE) Urine Nitrite Negative (NEGATIVE) Urine Bilirubin Negative (NEGATIVE) Urine Urobilinogen Normal (NEGATIVE) mg/dL Ur Leukocyte Esterase Negative (NEGATIVE) Urine WBC 0-5 (0) Ur Squamous Epith Cells Occasional (NS,R,O) Urine Bacteria Few H (NS) Salicylates (2.8-20.0) mg/dL Urine Opiates Screen Positive H (NEGATIVE) Ur Oxycodone Screen Negative (NEGATIVE) Ur Propoxyphene Screen Negative (NEGATIVE) Acetaminophen (10-30) ug/mL Ur Barbituates Screen Negative (NEGATIVE) Ur Tricyclics Screen Negative (NEGATIVE) Ur Phencyclidine Scrn Negative (NEGATIVE) Ur Amphetamine Screen Negative (NEGATIVE) Urine MDMA Screen Negative (NEGATIVE) U Benzodiazepines Scrn Positive H (NEGATIVE) U Cocaine Metab Screen Negative (NEGATIVE) U Marijuana (THC) Screen Negative (NEGATIVE) Ethyl Alcohol (<0.03) % Result Diagrams: 07/12/18 09:00 07/12/18 09:00 - Problem List (1) Anxiety SNOMED Code(s): 54548179 ICD Code: F41.9 - ANXIETY DISORDER, UNSPECIFIED Status: Acute Current Visit: Yes (2) Low back pain SNOMED Code(s): 007440189 ICD Code: M54.5 - LOW BACK PAIN Status: Acute Current Visit: Yes Problem Details: admit to Observation, pain management (3) Suicidal ideation SNOMED Code(s): 4159963 ICD Code: R45.851 - SUICIDAL IDEATIONS Status: Acute Current Visit: Yes Problem Details: will observe for any escalation of dysfunctional behaviors during pain managment. (4) Chronic pain syndrome SNOMED Code(s): 455703448 ICD Code: G89.4 - CHRONIC PAIN SYNDROME Status: Acute Current Visit: No (5) Depression SNOMED Code(s): 13097405 ICD Code: F32.9 - MAJOR DEPRESSIVE DISORDER, SINGLE EPISODE, UNSPECIFIED Status: Acute Current Visit: No Qualifiers: Depression Type: major depressive disorder Major depression recurrence: single episode Active/Remission status: currently active Major depression episode severity: moderate Qualified Code(s): F32.1 - Major depressive disorder, single episode, moderate Problem List Initiated/Reviewed/Updated: Yes Orders Last 24hrs: Active Orders 24 hr Category Date Time Status Patient Status [ADT] Routine ADT 07/12/18 13:01 Active Oxygen Therapy [RC] PRN Care 07/12/18 13:01 Active Up ad Zaynab [RC] ASDIRECTED Care 07/12/18 12:58 Active VTE/DVT Education [RC] Per Unit Routine Care 07/12/18 13:01 Active Vital Signs [RC] Q4H Care 07/12/18 13:01 Active Regular Diet [DIET] Diet 07/12/18 Lunch Active DRUG SCREEN, URINE ALERE [URCHEM] Stat Lab 07/12/18 09:17 Ordered ClonazePAM [KlonoPIN] Med 07/12/18 13:45 Active 0.25 mg PO DAILY ClonazePAM [KlonoPIN] Med 07/12/18 21:00 Active 0.5 mg PO BEDTIME Enoxaparin [Lovenox] Med 07/12/18 13:00 Active 40 mg SUBCUT Q24H FLUoxetine HCl [Fluoxetine HCl] Med 07/12/18 13:15 Ordered 80 mg PO DAILY Morphine [MS Contin] Med 07/12/18 12:30 Active 60 mg PO Q12H Ondansetron [Zofran ODT] Med 07/12/18 12:58 Active 4 mg PO Q4H PRN Sequential Compression Device [OM.PC] Per Unit Routine Oth 07/12/18 13:02 Ordered Suicide Precautions [OM.PC] Routine Oth 07/12/18 12:58 Ordered Resuscitation Status Routine Resus Stat 07/12/18 12:58 Ordered Medication Orders Clonazepam (Klonopin) 0.25 mg PO DAILY SHIRIN Clonazepam (Klonopin) 0.5 mg PO BEDTIME SHIRIN Enoxaparin Sodium (Lovenox) 40 mg SUBCUT Q24H [facility] Morphine Sulfate (Ms Contin) 60 mg PO Q12H [facility] Non-Formulary Medication (Fluoxetine Hcl [Fluoxetine Hcl]) 80 mg PO DAILY SHIRIN Ondansetron HCl (Zofran Odt) 4 mg PO Q4H PRN PRN Reason: nausea, able to take PO Assessment/Plan Comment:: 1. Admit for observation with suicidal precautions. 2. Restart her MS Contin, Prozac and clonidine per previous dose. 3. VTE prophylaxis with SCD and Lovenox 4. Regular diet. 5. Up in her room 6. Find psychiatric placement for her. 7. Labs reviewed. She has opioids and benzos in her urine which would confirm that she's been taking her medications recently.
[2018-07-12] MEDS: Enoxaparin 40 MG/0.4 ML Syringe SUBCUT SCH (13:57)
[2018-07-12] MEDS: Morphine 30 MG Tab.ER PO SCH (14:07)
[2018-07-12] MEDS: FLUOXETINE 40 MG PO SCH (14:20)
[2018-07-12] MEDS: Ondansetron 4 MG Tab.DIS PO PRN ×2 (15:32→21:02)
[2018-07-12] MEDS: LORazepam 1 MG Tab PO PRN (18:37)
[2018-07-12] MEDS ORDERED: ClonazePAM 0.5 MG Tab PO SCH (21:00)
[2018-07-13] MEDS: Ondansetron 4 MG Tab.DIS PO PRN ×3 (01:12→12:52)
[2018-07-13] MEDS: LORazepam 1 MG Tab PO PRN ×3 (01:13→12:52)
[2018-07-13] MEDS: Morphine 30 MG Tab.ER PO SCH (02:08)
[2018-07-13] MEDS ORDERED: Pantoprazole 40 MG Tab.CR PO SCH (06:00)
--- NOTE | 2018-07-13 07:43 | PCM.PN ---
- General Info Date of Service: 07/13/18 Admission Dx/Problem (Free Text): Patient still feels very sad and suicidal today. She complains of abdominal pain. Back pain is better on her medication. - Patient Data Vitals - Most Recent: Last Vital Signs Temp 98.0 F 07/13/18 04:00 Pulse 56 L 07/13/18 04:00 Resp 20 07/13/18 04:00 BP 147/87 H 07/13/18 04:00 Pulse Ox 96 07/13/18 04:00 Weight - Most Recent: 129 lb 9.6 oz Lab Results Last 24 Hours: Laboratory Results - last 24 hr 07/12/18 07/12/18 07/12/18 Range/Units 09:00 09:00 09:00 WBC 11.3 (4.5-12.0) X10-3/uL RBC 5.20 (3.23-5.20) x10(6)uL Hgb 15.7 H (11.5-15.5) g/dL Hct 46.6 (30.0-51.3) % MCV 89.5 (80-96) fL MCH 30.2 (27.7-33.6) pg MCHC 33.7 (32.2-35.4) g/dL RDW 12.7 (11.5-15.5) % Plt Count 341 (125-369) X10(3)uL MPV 7.7 (7.4-10.4) fL Neut % (Auto) 81.3 (46-82) % Lymph % (Auto) 14.9 (13-37) % Wright % (Auto) 2.9 L (4-12) % Eos % (Auto) 0 L (1.0-5.0) % Baso % (Auto) 1 (0-2) % Neut # (Auto) 9.2 H (1.6-8.3) # Lymph # (Auto) 1.7 (0.6-5.0) # Wright # (Auto) 0.3 (0.0-1.3) # Eos # (Auto) 0.0 (0.0-0.8) # Baso # (Auto) 0.1 (0.0-0.2) # Sodium 140 (135-145) mmol/L Potassium 4.4 (3.5-5.3) mmol/L Chloride 105 (100-110) mmol/L Carbon Dioxide 30 (21-32) mmol/L BUN 9 (7-18) mg/dL Creatinine 0.7 (0.55-1.02) mg/dL Est Cr Clr Drug Dosing 90.38 mL/min Estimated GFR (MDRD) > 60 (>60) BUN/Creatinine Ratio 12.9 (9-20) Glucose 96 (80-116) mg/dL Calcium 9.1 (8.6-10.2) mg/dL Total Bilirubin 0.6 (0.1-1.3) mg/dL AST 46 H (5-25) IU/L ALT 29 (12-36) U/L Alkaline Phosphatase 215 H (56-112) IU/L Total Protein 7.3 (6.0-8.0) g/dL Albumin 3.5 (3.5-5.2) g/dL Globulin 3.8 g/dL Albumin/Globulin Ratio 0.9 TSH, Ultra Sensitive 0.97 (0.36-3.74) IU/mL Urine Color (YELLOW) Urine Appearance (CLEAR) Urine pH (5.0-6.5) Ur Specific [place] (1.010-1.025) Urine Protein (NEGATIVE) mg/dL Urine Glucose (UA) (NEGATIVE) mg/dL Urine Ketones (NEGATIVE) mg/dL Urine Occult Blood (NEGATIVE) Urine Nitrite (NEGATIVE) Urine Bilirubin (NEGATIVE) Urine Urobilinogen (NEGATIVE) mg/dL Ur Leukocyte Esterase (NEGATIVE) Urine WBC (0) Ur Squamous Epith Cells (NS,R,O) Urine Bacteria (NS) Salicylates 7.7 (2.8-20.0) mg/dL Urine Opiates Screen (NEGATIVE) Ur Oxycodone Screen (NEGATIVE) Ur Propoxyphene Screen (NEGATIVE) Acetaminophen < 2 L (10-30) ug/mL Ur Barbituates Screen (NEGATIVE) Ur Tricyclics Screen (NEGATIVE) Ur Phencyclidine Scrn (NEGATIVE) Ur Amphetamine Screen (NEGATIVE) Urine MDMA Screen (NEGATIVE) U Benzodiazepines Scrn (NEGATIVE) U Cocaine Metab Screen (NEGATIVE) U Marijuana (THC) Screen (NEGATIVE) Ethyl Alcohol < 0.03 (<0.03) % 07/12/18 07/12/18 Range/Units 09:17 09:17 WBC (4.5-12.0) X10-3/uL RBC (3.23-5.20) x10(6)uL Hgb (11.5-15.5) g/dL Hct (30.0-51.3) % MCV (80-96) fL MCH (27.7-33.6) pg MCHC (32.2-35.4) g/dL RDW (11.5-15.5) % Plt Count (125-369) X10(3)uL MPV (7.4-10.4) fL Neut % (Auto) (46-82) % Lymph % (Auto) (13-37) % Wright % (Auto) (4-12) % Eos % (Auto) (1.0-5.0) % Baso % (Auto) (0-2) % Neut # (Auto) (1.6-8.3) # Lymph # (Auto) (0.6-5.0) # Wright # (Auto) (0.0-1.3) # Eos # (Auto) (0.0-0.8) # Baso # (Auto) (0.0-0.2) # Sodium (135-145) mmol/L Potassium (3.5-5.3) mmol/L Chloride (100-110) mmol/L Carbon Dioxide (21-32) mmol/L BUN (7-18) mg/dL Creatinine (0.55-1.02) mg/dL Est Cr Clr Drug Dosing mL/min Estimated GFR (MDRD) (>60) BUN/Creatinine Ratio (9-20) Glucose (80-116) mg/dL Calcium (8.6-10.2) mg/dL Total Bilirubin (0.1-1.3) mg/dL AST (5-25) IU/L ALT (12-36) U/L Alkaline Phosphatase (56-112) IU/L Total Protein (6.0-8.0) g/dL Albumin (3.5-5.2) g/dL Globulin g/dL Albumin/Globulin Ratio TSH, Ultra Sensitive (0.36-3.74) IU/mL Urine Color Yellow (YELLOW) Urine Appearance Clear (CLEAR) Urine pH 8.0 H (5.0-6.5) Ur Specific [place] 1.015 (1.010-1.025) Urine Protein Negative (NEGATIVE) mg/dL Urine Glucose (UA) Normal (NEGATIVE) mg/dL Urine Ketones Negative (NEGATIVE) mg/dL Urine Occult Blood Negative (NEGATIVE) Urine Nitrite Negative (NEGATIVE) Urine Bilirubin Negative (NEGATIVE) Urine Urobilinogen Normal (NEGATIVE) mg/dL Ur Leukocyte Esterase Negative (NEGATIVE) Urine WBC 0-5 (0) Ur Squamous Epith Cells Occasional (NS,R,O) Urine Bacteria Few H (NS) Salicylates (2.8-20.0) mg/dL Urine Opiates Screen Positive H (NEGATIVE) Ur Oxycodone Screen Negative (NEGATIVE) Ur Propoxyphene Screen Negative (NEGATIVE) Acetaminophen (10-30) ug/mL Ur Barbituates Screen Negative (NEGATIVE) Ur Tricyclics Screen Negative (NEGATIVE) Ur Phencyclidine Scrn Negative (NEGATIVE) Ur Amphetamine Screen Negative (NEGATIVE) Urine MDMA Screen Negative (NEGATIVE) U Benzodiazepines Scrn Positive H (NEGATIVE) U Cocaine Metab Screen Negative (NEGATIVE) U Marijuana (THC) Screen Negative (NEGATIVE) Ethyl Alcohol (<0.03) % Med Orders - Current: Current Medications Clonazepam (Klonopin) 0.25 mg PO DAILY [facility] Last Admin: 07/12/18 13:56 Dose: 0.25 mg Clonazepam (Klonopin) 0.5 mg PO BEDTIME [facility] Last Admin: 07/12/18 21:00 Dose: 0.5 mg Enoxaparin Sodium (Lovenox) 40 mg SUBCUT Q24H [facility] Last Admin: 07/12/18 13:57 Dose: 40 mg Lorazepam (Ativan) 1 mg PO Q6H PRN PRN Reason: Anxiety Last Admin: 07/13/18 07:21 Dose: 1 mg Morphine Sulfate (Ms Contin) 60 mg PO Q12H [facility] Last Admin: 07/13/18 02:08 Dose: 60 mg Fluoxetine 40mg * (Ptom) 0 mg PO DAILY [facility] Last Admin: 07/12/18 14:20 Dose: 80 mg Ondansetron HCl (Zofran Odt) 4 mg PO Q4H PRN PRN Reason: nausea, able to take PO Last Admin: 07/13/18 07:21 Dose: 4 mg Pantoprazole Sodium (Protonix) 40 mg PO DAILY@0600 [facility] Last Admin: 07/13/18 06:09 Dose: 40 mg Discontinued Medications Clonazepam (Klonopin) 0.25 mg PO DAILY [facility] Hydromorphone HCl (Dilaudid) 2 mg IM ONETIME ONE Stop: 07/12/18 08:01 Last Admin: 07/12/18 08:15 Dose: 2 mg Hydromorphone HCl (Dilaudid) 1 mg IM ONETIME ONE Stop: 07/12/18 11:18 Last Admin: 07/12/18 13:51 Dose: Not Given Hydromorphone HCl (Dilaudid) 2 mg IM ONETIME ONE Stop: 07/12/18 11:30 Last Admin: 07/12/18 11:45 Dose: 2 mg Lorazepam (Ativan) 1 mg PO ONETIME ONE Stop: 07/12/18 11:18 Last Admin: 07/12/18 11:43 Dose: 1 mg - Exam General: Alert Lungs: Normal Respiratory Effort GI/Abdominal Exam: Normal Bowel Sounds, Soft, Non-Tender, No Organomegaly, No Distention, No Mass Psy/Mental Status: Alert, Labile Mood, Agitated, Suicidal Ideation, Withdrawal Symptoms - Problem List & Annotations (1) Anxiety SNOMED Code(s): 61836009 Code(s): F41.9 - ANXIETY DISORDER, UNSPECIFIED Status: Acute Current Visit: Yes (2) Low back pain SNOMED Code(s): 571307653 Code(s): M54.5 - LOW BACK PAIN Status: Acute Current Visit: Yes Annotation/Comment:: admit to Observation, pain management (3) Suicidal ideation SNOMED Code(s): 7923954 Code(s): R45.851 - SUICIDAL IDEATIONS Status: Acute Current Visit: Yes Annotation/Comment:: will observe for any escalation of dysfunctional behaviors during pain managment. (4) Chronic pain syndrome SNOMED Code(s): 884523724 Code(s): G89.4 - CHRONIC PAIN SYNDROME Status: Acute Current Visit: No (5) Depression SNOMED Code(s): 26521346 Code(s): F32.9 - MAJOR DEPRESSIVE DISORDER, SINGLE EPISODE, UNSPECIFIED Status: Acute Current Visit: No Qualifiers: Depression Type: major depressive disorder Major depression recurrence: single episode Active/Remission status: currently active Major depression episode severity: moderate Qualified Code(s): F32.1 - Major depressive disorder, single episode, moderate (6) Abdominal pain SNOMED Code(s): 49020215 Code(s): R10.9 - UNSPECIFIED ABDOMINAL PAIN Status: Acute Current Visit: Yes - Problem List Review Problem List Initiated/Reviewed/Updated: Yes - My Orders Last 24 Hours: My Active Orders 07/12/18 12:58 Up ad Zaynab [RC] ASDIRECTED Ondansetron [Zofran ODT] 4 mg PO Q4H PRN Suicide Precautions [OM.PC] Routine Resuscitation Status Routine 07/12/18 13:00 Enoxaparin [Lovenox] 40 mg SUBCUT Q24H 07/12/18 13:01 Patient Status [ADT] Routine Oxygen Therapy [RC] PRN Vital Signs [RC] 08,12,16,20,00,04 07/12/18 13:02 Sequential Compression Device [OM.PC] Per Unit Routine 07/12/18 13:15 FLUoxetine HCl [Fluoxetine HCl] 0 mg PO DAILY 07/12/18 13:45 ClonazePAM [KlonoPIN] 0.25 mg PO DAILY 07/12/18 14:15 Morphine [MS Contin] 60 mg PO Q12H 07/12/18 18:17 LORazepam [Ativan] 1 mg PO Q6H PRN 07/12/18 21:00 ClonazePAM [KlonoPIN] 0.5 mg PO BEDTIME 07/12/18 Lunch Regular Diet [DIET] 07/13/18 06:00 Pantoprazole [ProTONIX] 40 mg PO DAILY@0600 - Plan Plan:: 1. Normal exam under abdominal pain may be related to her psychiatric issues. 2. Back pain is controlled. Okay for transfer to psych facility.
[2018-07-13] MEDS ORDERED: ClonazePAM 0.5 MG Tab PO SCH (09:00)
[2018-07-13] MEDS: FLUOXETINE 40 MG PO SCH (09:44)
[2018-07-13] MEDS: ClonazePAM 0.5 MG Tab PO SCH (09:45)
[2018-07-13 12:49] VITALS: BP 130/77
[2018-07-13] MEDS: Enoxaparin 40 MG/0.4 ML Syringe SUBCUT SCH (13:46)
--- NOTE | 2018-07-13 16:54 | PCM.SN ---
- Free Text/Narrative Note: [facility] in [place] called and they will take her. Pain is controlled on her regular medication. Will send her by car per . Patient does want help so she won't do anything in the way over.
--- NOTE | 2018-07-13 16:56 | PCM.DCSUM1 ---
Discharge Summary - Hospital Course Free Text/Narrative:: Hospital course-A she was placed in ICU on one-to-one watch because of suicidal precautions. Placed back on her MS Contin and Prozac as previously prescribed. She required some Ativan for anxiety. Still had problems with crying spells, anxiety and depression. But she states she wants help and wants to go to a psychiatric unit. Patient complained of abdominal pain. Exam of the abdomen 2. Benign exam so no further workup done. Patient was in the hospital because her pain was not controlled. [facility] would not take her until this happened. [facility] accepted her. Patient wants help so she'll go per car with her to [facility] today for psychiatric services. The nurses asked for me if [facility] needed a doctor to doctor consultation. And they stated they did not need this. Brief History: This is a 53-year-old female patient but came to the ER by ambulance after writing a note that she wanted to kill herself. She has a long standing history of depression and chronic low back pain. She states she's had 3 laminectomies and 2 fusions. She's had 2 stimulators placed and removed. He is currently on MS Contin 60 mg twice a day and Prozac 80 mg a day with some clonidine mixed in. She told her that she can live like this and she is to take her pills 3 days ago. So he took her pills out and threw them away because he didn't want her to hurt herself. When he left today she wrote a note and called the ambulance. She say says she cannot live like this with his chronic pain and was given under control. She does have a pain clinic appointment tomorrow. She is depressed, sad, suicidal thoughts with estrogen problems. She denies memory problems. She also has anxiety. She said today she had a little bit of shortness of breath or chest pain she thinks her anxiety that's improved. She was seen in the ER and they tried to refer her to a psychiatric center. They refused to take her until her pain is under control. Diagnosis: Stroke: No - Discharge Data Discharge Date: 07/13/18 Discharge Disposition: DC/Tfer to Psych Hosp/Unit 65 Condition: Fair - Discharge Diagnosis/Problem(s) (1) Anxiety SNOMED Code(s): 83292411 ICD Code: F41.9 - ANXIETY DISORDER, UNSPECIFIED Status: Acute (2) Low back pain SNOMED Code(s): 647068367 ICD Code: M54.5 - LOW BACK PAIN Status: Acute Problem Details: admit to Observation, pain management (3) Suicidal ideation SNOMED Code(s): 5997326 ICD Code: R45.851 - SUICIDAL IDEATIONS Status: Acute Problem Details: will observe for any escalation of dysfunctional behaviors during pain managment. (4) Chronic pain syndrome SNOMED Code(s): 671756555 ICD Code: G89.4 - CHRONIC PAIN SYNDROME Status: Acute (5) Depression SNOMED Code(s): 13673609 ICD Code: F32.9 - MAJOR DEPRESSIVE DISORDER, SINGLE EPISODE, UNSPECIFIED Status: Acute Qualifiers: Depression Type: major depressive disorder Major depression recurrence: single episode Active/Remission status: currently active Major depression episode severity: moderate Qualified Code(s): F32.1 - Major depressive disorder, single episode, moderate (6) Abdominal pain SNOMED Code(s): 50067530 ICD Code: R10.9 - UNSPECIFIED ABDOMINAL PAIN Status: Acute - Patient Instructions Diet: Regular Diet as Tolerated Activity: As Tolerated Driving: Do Not Drive Showering/Bathing: May Shower Other/Special Instructions: 1. Transfer to [facility] per in car. Patient is stable wants help. 2. I asked if the doctor wanted talk to the transfer and I was told no. - Discharge Plan *PRESCRIPTION DRUG MONITORING PROGRAM REVIEWED*: No *COPY OF PRESCRIPTION DRUG MONITORING REPORT IN PATIENT LORRAINE: No Home Medications: Home Meds Morphine Sulfate [Ms Contin] 60 mg PO Q12H #11 tablet.er 03/25/16 [Rx] ClonazePAM [KlonoPIN] 0.5 mg PO BEDTIME 11/02/17 [History] FLUoxetine HCl [Fluoxetine HCl] 80 mg PO DAILY 11/02/17 [History] Omeprazole 20 cap PO DAILY PRN 11/02/17 [History] ClonazePAM [KlonoPIN] 0.25 mg PO DAILY 07/12/18 [History] Patient Handouts: Fall Prevention in Hospitals, Adult, Venous Thromboembolism Prevention Forms: ED Department Discharge Referrals: PCP,None [Ordering Only Provider] - - Discharge Summary/Plan Comment DC Time >30 min.: No - Patient Data Vitals - Most Recent: Last Vital Signs Temp 98.1 F 07/13/18 12:00 Pulse 56 L 07/13/18 04:00 Resp 16 07/13/18 12:00 BP 130/77 07/13/18 12:00 Pulse Ox 63 L 07/13/18 12:00 Weight - Most Recent: 129 lb 9.6 oz Med Orders - Current: Current Medications Discontinued Medications Clonazepam (Klonopin) 0.[address] [facility] Last Admin: 07/13/18 09:45 Dose: 0.25 mg Clonazepam (Klonopin) 0.[address] [facility] Last Admin: 07/12/18 21:00 Dose: 0.5 mg Clonazepam (Klonopin) 0.[address] [facility] Enoxaparin Sodium (Lovenox) [address] [facility] Last Admin: 07/13/18 13:46 Dose: Not Given Hydromorphone HCl (Dilaudid) 2 mg IM ONETIME ONE Stop: 07/12/18 08:01 Last Admin: 07/12/18 08:15 Dose: 2 mg Hydromorphone HCl (Dilaudid) 1 mg IM ONETIME ONE Stop: 07/12/18 11:18 Last Admin: 07/12/18 13:51 Dose: Not Given Hydromorphone HCl (Dilaudid) 2 mg IM ONETIME ONE Stop: 07/12/18 11:30 Last Admin: 07/12/18 11:45 Dose: 2 mg Lorazepam (Ativan) 1 mg PO ONETIME ONE Stop: 07/12/18 11:18 Last Admin: 07/12/18 11:43 Dose: 1 mg Lorazepam (Ativan) 1 mg PO Q6H PRN PRN Reason: Anxiety Last Admin: 07/13/18 12:52 Dose: 1 mg Morphine Sulfate (Ms Contin) [address] [facility] Last Admin: 07/13/18 02:08 Dose: 60 mg Fluoxetine 40mg * (Ptom) [address] [facility] Last Admin: 07/13/18 09:44 Dose: 80 mg Ondansetron HCl (Zofran Odt) 4 mg PO Q4H PRN PRN Reason: nausea, able to take PO Last Admin: 07/13/18 12:52 Dose: 4 mg Pantoprazole Sodium (Protonix) 40 mg PO DAILY@0600 [facility] Last Admin: 07/13/18 06:09 Dose: 40 mg
== END 2018-07-13 13:25 ==
LOC: FB.ED 07:21 → FB.MS 12:05
PROVIDERS: ADMIT Family Medicine; ATTEND Family Medicine
DX: G89.4 Chronic pain syndrome (principal); M54.5 Low back pain; R45.851 Suicidal ideations; F32.1 Major depressive disorder, single episode, moderate; F41.9 Anxiety disorder, unspecified; R10.9 Unspecified abdominal pain; I10 Essential (primary) hypertension; J45.909 Unspecified asthma, uncomplicated; F17.210 Nicotine dependence, cigarettes, uncomplicated; E66.9 Obesity, unspecified; Z68.23 Body mass index [BMI] 23.0-23.9, adult; E78.00 Pure hypercholesterolemia, unspecified; M19.90 Unspecified osteoarthritis, unspecified site; Z79.899 Other long term (current) drug therapy; Z98.1 Arthrodesis status
CPT/HCPCS: 36415; 80053; 80305; 81001; 84443; 85025; 96372; 99285; A9270; G0378; G0480; J1170; J1650

== ENCOUNTER 2019-06-09 21:17 | Emergency (ER) | payer MEDICAID, MEDICARE ==
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
[2019-06-09] MEDS ORDERED: Diphtheria,Pertussis(Acell),Tetanus Vaccine 0.5 ML SDV IM ONE (21:43)
[2019-06-09] MEDS ORDERED: Diphtheria,Pertussis(Acell),Tetanus Vaccine 0.5 ML SDV ONE (21:45)
[2019-06-09 22:33] VITALS: BP 156/86; PULSE 100
== END 2019-06-09 21:50 ==
LOC: FB.ED 21:17
DX: S60.011A Contusion of right thumb without damage to nail, initial encounter (principal); Z23 Encounter for immunization; I10 Essential (primary) hypertension; E78.00 Pure hypercholesterolemia, unspecified; F41.9 Anxiety disorder, unspecified; F32.9 Major depressive disorder, single episode, unspecified; Z79.899 Other long term (current) drug therapy; Z88.1 Allergy status to other antibiotic agents; Z88.6 Allergy status to analgesic agent; Z88.8 Allergy status to other drugs, medicaments and biological substances; Y04.8XXA Assault by other bodily force, initial encounter
CPT/HCPCS: 90471; 90715; 99283

== ENCOUNTER 2020-08-26 11:34 | Emergency (ER) | payer MEDICARE, MEDICAID ==
[2020-08-26] MEDS ORDERED: Prochlorperazine 5 MG Tab PO ONE (11:35)
--- NOTE | 2020-08-26 11:59 | EDM.PDOC ---
ED HPI GENERAL MEDICAL PROBLEM - General Chief Complaint: Gastrointestinal Problem Stated Complaint: VOMITTING, Time Seen by Provider: 08/26/20 11:58 Source of Information: Reports: Patient History Limitations: Reports: No Limitations - History of Present Illness INITIAL COMMENTS - FREE TEXT/NARRATIVE: 55-year-old female who reports onset yesterday of "not feeling well" and also some burning in her abdomen and pain in her sides and back. She does have a long-standing history of chronic back pain. She also has a history of recurrent abdominal pain but she reports "this is different". She has had diarrhea which began this a.m. and she reports 10-15 episodes of diarrhea today. She also reports nausea and has had vomiting 1 and she reports it was foamy and white and she has been gagging and having some dry heaving since then. She reports the pain as a 10/10. It is all over her abdomen but mostly in the upper abdomen, neither more on the left or the right but more in the center. She also reports that it has progressively worsened over time and she feels all over. She apparently was found by EMS outside her house and she tells me that she was "trying to go to the hospital". She is lying on the stretcher with her eyes closed but she will converse and although she does seem somewhat sleepy she is able to give decent history. She reports that she has had no measured fever and she has had no chills but she does feel cold all over. She also reports some burning with urination and increased pain in her sides and back when she against urinate but then it goes away when she stops. She has noted no blood in her stool. She reports that she has had decreased intake orally since yesterday because it increases her burning and discomfort when she tries to take either f ood or liquid and she reports that she also has gagging and is unable to even attempt to swallow the liquid or food when she tries. There are no other associated signs or symptoms. There are no other modifying factors. She presents via ambulance with IV established. Onset: Other (Yesterday afternoon) Duration: Getting Worse Location: Reports: Abdomen, Back, Other (In both sides.) Quality: Reports: Burning Severity: Severe Improves with: Reports: None Worsens with: Reports: Eating, Other (Palpation.) Associated Symptoms: Reports: Confusion (Seems somewhat out of it), Malaise, Nausea/Vomiting, Weakness Treatments MANAGEMENT PLANNER: Reports: Other (see below) (Nothing.) back and abdomen Pain Score (Numeric/FACES): 6 - Related Data Allergies Allergy/AdvReac Type Severity Reaction Status Date / Time acetaminophen [From Tylox] Allergy Rash Verified 06/09/19 22:17 adhesive Allergy irritated Verified 06/09/19 22:17 skin ampicillin [From Unasyn] Allergy Itching Verified 06/09/19 22:17 ampicillin sodium Allergy Rash Verified 06/09/19 22:17 [From Unasyn] carisoprodol [From Soma] Allergy Confusion Verified 06/09/19 22:17 cephalexin [Cephalexin] Allergy Rash Verified 06/09/19 22:17 diphenhydramine Allergy Other Verified 08/26/20 17:34 [From Benadryl] omega-3 acid ethyl esters Allergy Rash Verified 06/09/19 22:17 oxycodone [From Tylox] Allergy Rash Verified 06/09/19 22:17 quetiapine [From Seroquel] Allergy Confusion Verified 06/09/19 22:17 sulbactam [From Unasyn] Allergy Itching Verified 06/09/19 22:17 sulbactam sodium Allergy Rash Verified 06/09/19 22:17 [From Unasyn] Home Meds: Home Meds Morphine Sulfate [Ms Contin] 60 mg PO Q12H #11 tablet.er 03/25/16 [Rx] FLUoxetine HCl [Fluoxetine HCl] 80 mg PO DAILY 11/02/17 [History] Omeprazole 20 cap PO BIDAC PRN 11/02/17 [History] Cyanocobalamin (Vitamin B12) [Vitamin B12] 1,000 mcg PO DAILY 09/18/18 [History] Ondansetron [Zofran ODT] 4 mg SL Q4HR 09/18/18 [History] Cholecalciferol (Vitamin D3) [Vitamin D3] 1,000 units PO DAILY 10/22/18 [History] Morphine [MS Contin] 30 mg PO DAILY 10/22/18 [History] Nicotine Polacrilex [Nicotine Lozenge] 2 mg PO Q2HR PRN 10/22/18 [History] Omeprazole 40 mg PO QAM #30 capsule. 08/26/20 [Rx] Past Medical History HEENT History: Reports: Impaired Vision Cardiovascular History: Reports: High Cholesterol, Hypertension Respiratory History: Reports: Asthma, SOB Gastrointestinal History: Reports: Irritable Bowel Syndrome, [employer] History: Reports: 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 Musculoskeletal History: Reports: Arthritis, Back Pain, Chronic, Osteoarthritis Other Musculoskeletal History: back fusion Neurological History: Reports: Migraines Psychiatric History: Reports: Anxiety, Depression, Emotional Problems, Psych Hospitalization(s), Suicide Attempt, Suicidal Ideation Endocrine/Metabolic History: Reports: Obesity/BMI 30+ - Infectious Disease History Infectious Disease History: Reports: Chicken Pox, Measles - Past Surgical History GI Surgical History: Reports: Appendectomy, Bariatric Procedure (Gastric bypass surgery), Cholecystectomy Female Surgical History: Reports: Hysterectomy Other Musculoskeletal Surgeries/Procedures:: BACK SURGERY 7x Social & Family History - Family History Family Medical History: Noncontributory - Tobacco Use Smoking Status *Q: Current Every Day Smoker - Caffeine Use Caffeine Use: Reports: None Other Caffeine Use: caffeine free - Alcohol Use Alcohol Use History: No - Living Situation & Occupation Living situation: Reports: Other (Lives with her .) ED ROS GENERAL - Review of Systems Review Of Systems: See Below Constitutional: Reports: Malaise, Weakness HEENT: Reports: No Symptoms Respiratory: Reports: No Symptoms Cardiovascular: Reports: No Symptoms GI/Abdominal: Reports: Abdominal Pain, Diarrhea, Nausea, Vomiting : Reports: Dysuria, Flank Pain (Bilateral) Musculoskeletal: Reports: Back Pain Skin: Reports: No Symptoms Neurological: Reports: Dizziness, Weakness Hematologic/Lymphatic: Reports: No Symptoms Immunologic: Reports: No Symptoms ED EXAM, GI/ABD - Physical Exam Exam: See Below Exam Limited By: No Limitations General Appearance: WD/WN, Lethargic (Somewhat but does awaken and is able to give streak and is fluent in her conversation.), Moderate Distress (Appears in pain.) Eyes: Bilateral: Normal Appearance, EOMI Ears: Normal External Exam, Hearing Grossly Normal Nose: Normal Inspection, Normal Mucosa, No Blood Throat/Mouth: Normal Voice, No Airway Compromise, Other (No erythema. Somewhat dry mucous membranes.) Head: Atraumatic, Normocephalic Neck: Normal Inspection, Supple, Non-Tender, Full Range of Motion Respiratory/Chest: No Respiratory Distress, Lungs Clear, Normal Breath Sounds, No Accessory Muscle Use, Chest Non-Tender Cardiovascular: Normal Peripheral Pulses, Regular Rate, Rhythm, No Murmur GI/Abdominal Exam: Normal Bowel Sounds, Soft, No Mass, Tender (Diffusely.). No: Guarding, Rigid, Hernia Back Exam: Normal Inspection, Paraspinal Tenderness (Diffuse. He is noted. No crepitus.) Extremities: Normal Inspection, Normal Range of Motion, Non-Tender, No Pedal Edema, Normal Capillary Refill Neurological: Alert, Oriented, CN II-XII Intact, Normal Cognition, No Motor/Sensory Deficits Psychiatric: Depressed Mood Skin Exam: Warm, Dry, Intact, Normal Color, No Rash EKG INTERPRETATION EKG Date: 08/26/20 Time: 12:36 Rhythm: NSR Rate (Beats/Min): 64 Martell: Normal P-Wave: Present QRS: Normal ST-T: Other (Nonspecific ST-T changes throughout.) QT: Normal Comparison: NA - No Prior EKG Course - Vital Signs Last Recorded V/S: Last Vital Signs Temp 36.5 C 08/26/20 11:35 Pulse 89 08/26/20 16:00 Resp 17 08/26/20 16:00 BP 156/57 H 08/26/20 16:00 Pulse Ox 96 08/26/20 16:00 - Orders/Labs/Meds Orders: Active Orders 24 hr Category Date Time Status Abdomen Pelvis w Cont [CT] Stat Exams 08/26/20 13:31 Taken EKG 12 Lead [EK] Routine Ther 08/26/20 12:15 Ordered Labs: Laboratory Tests 08/26/20 08/26/20 08/26/20 Range/Units 12:26 12:26 12:35 WBC 10.0 (4.5-12.0) X10-3/uL RBC 5.24 H (3.23-5.20) x10(6)uL Hgb 14.8 (11.5-15.5) g/dL Hct 44.8 (30.0-51.3) % MCV 85.5 (80-96) fL MCH 28.3 (27.7-33.6) pg MCHC 33.1 (32.2-35.4) g/dL RDW 15.3 (11.5-15.5) % Plt Count 390 H (125-369) X10(3)uL MPV 7.1 L (7.4-10.4) fL Neut % (Auto) 86.3 H (46-82) % Lymph % (Auto) 10.9 L (13-37) % [place] % (Auto) 2.1 L (4-12) % Eos % (Auto) 0 L (1.0-5.0) % Baso % (Auto) 1 (0-2) % Neut # (Auto) 8.6 H (1.6-8.3) # Lymph # (Auto) 1.1 (0.6-5.0) # [place] # (Auto) 0.2 (0.0-1.3) # Eos # (Auto) 0.0 (0.0-0.8) # Baso # (Auto) 0.1 (0.0-0.2) # Sodium (135-145) mmol/L Potassium (3.5-5.3) mmol/L Chloride (100-110) mmol/L Carbon Dioxide (21-32) mmol/L BUN (7-18) mg/dL Creatinine (0.55-1.02) mg/dL Est Cr Clr Drug Dosing mL/min Estimated GFR (MDRD) (>60) BUN/Creatinine Ratio (9-20) Glucose (80-116) mg/dL Lactic Acid (0.4-2.0) mmol/L Calcium (8.6-10.2) mg/dL Magnesium (1.8-2.5) mg/dL Total Bilirubin (0.1-1.3) mg/dL AST (5-25) IU/L ALT (12-36) U/L Alkaline Phosphatase (56-112) IU/L C-Reactive Protein (0.5-0.9) mg/dL Total Protein (6.0-8.0) g/dL Albumin (3.5-5.2) g/dL Globulin g/dL Albumin/Globulin Ratio Lipase (73-393) U/L Urine Color Yellow (YELLOW) Urine Appearance Slightly cloudy (CLEAR) Urine pH 6.0 (5.0-6.5) Ur Specific [place] 1.020 (1.010-1.025) Urine Protein Negative (NEGATIVE) mg/dL Urine Glucose (UA) 50 H (NORMAL) mg/dL Urine Ketones 15 H (NEGATIVE) mg/dL Urine Occult Blood Large H (NEGATIVE) Urine Nitrite Negative (NEGATIVE) Urine Bilirubin Negative (NEGATIVE) Urine Urobilinogen Normal (NEGATIVE) mg/dL Ur Leukocyte Esterase Negative (NEGATIVE) Urine RBC 0-5 (0-5) Urine WBC 0-5 (0-5) Ur Squamous Epith Cells Moderate H (NS,R,O) Urine Bacteria Not seen (NS) Urine Opiates Screen Positive H (NEGATIVE) Ur Oxycodone Screen Negative (NEGATIVE) Ur Propoxyphene Screen Negative (NEGATIVE) Ur Barbituates Screen Negative (NEGATIVE) Ur Tricyclics Screen Negative (NEGATIVE) Ur Phencyclidine Scrn Negative (NEGATIVE) Ur Amphetamine Screen Negative (NEGATIVE) Urine MDMA Screen Negative (NEGATIVE) U Benzodiazepines Scrn Positive H (NEGATIVE) U Cocaine Metab Screen Negative (NEGATIVE) U Marijuana (THC) Screen Negative (NEGATIVE) Ethyl Alcohol (<0.03) % 08/26/20 08/26/20 08/26/20 Range/Units 12:35 12:35 12:35 WBC (4.5-12.0) X10-3/uL RBC (3.23-5.20) x10(6)uL Hgb (11.5-15.5) g/dL Hct (30.0-51.3) % MCV (80-96) fL MCH (27.7-33.6) pg MCHC (32.2-35.4) g/dL RDW (11.5-15.5) % Plt Count (125-369) X10(3)uL MPV (7.4-10.4) fL Neut % (Auto) (46-82) % Lymph % (Auto) (13-37) % [place] % (Auto) (4-12) % Eos % (Auto) (1.0-5.0) % Baso % (Auto) (0-2) % Neut # (Auto) (1.6-8.3) # Lymph # (Auto) (0.6-5.0) # [place] # (Auto) (0.0-1.3) # Eos # (Auto) (0.0-0.8) # Baso # (Auto) (0.0-0.2) # Sodium (135-145) mmol/L Potassium (3.5-5.3) mmol/L Chloride (100-110) mmol/L Carbon Dioxide (21-32) mmol/L BUN (7-18) mg/dL Creatinine (0.55-1.02) mg/dL Est Cr Clr Drug Dosing mL/min Estimated GFR (MDRD) (>60) BUN/Creatinine Ratio (9-20) Glucose (80-116) mg/dL Lactic Acid 1.0 (0.4-2.0) mmol/L Calcium (8.6-10.2) mg/dL Magnesium (1.8-2.5) mg/dL Total Bilirubin (0.1-1.3) mg/dL AST (5-25) IU/L ALT (12-36) U/L Alkaline Phosphatase (56-112) IU/L C-Reactive Protein 0.2 L (0.5-0.9) mg/dL Total Protein (6.0-8.0) g/dL Albumin (3.5-5.2) g/dL Globulin g/dL Albumin/Globulin Ratio Lipase 33 L (73-393) U/L Urine Color (YELLOW) Urine Appearance (CLEAR) Urine pH (5.0-6.5) Ur Specific [place] (1.010-1.025) Urine Protein (NEGATIVE) mg/dL Urine Glucose (UA) (NORMAL) mg/dL Urine Ketones (NEGATIVE) mg/dL Urine Occult Blood (NEGATIVE) Urine Nitrite (NEGATIVE) Urine Bilirubin (NEGATIVE) Urine Urobilinogen (NEGATIVE) mg/dL Ur Leukocyte Esterase (NEGATIVE) Urine RBC (0-5) Urine WBC (0-5) Ur Squamous Epith Cells (NS,R,O) Urine Bacteria (NS) Urine Opiates Screen (NEGATIVE) Ur Oxycodone Screen (NEGATIVE) Ur Propoxyphene Screen (NEGATIVE) Ur Barbituates Screen (NEGATIVE) Ur Tricyclics Screen (NEGATIVE) Ur Phencyclidine Scrn (NEGATIVE) Ur Amphetamine Screen (NEGATIVE) Urine MDMA Screen (NEGATIVE) U Benzodiazepines Scrn (NEGATIVE) U Cocaine Metab Screen (NEGATIVE) U Marijuana (THC) Screen (NEGATIVE) Ethyl Alcohol < 0.03 (<0.03) % 08/26/20 Range/Units 13:05 WBC (4.5-12.0) X10-3/uL RBC (3.23-5.20) x10(6)uL Hgb (11.5-15.5) g/dL Hct (30.0-51.3) % MCV (80-96) fL MCH (27.7-33.6) pg MCHC (32.2-35.4) g/dL RDW (11.5-15.5) % Plt Count (125-369) X10(3)uL MPV (7.4-10.4) fL Neut % (Auto) (46-82) % Lymph % (Auto) (13-37) % [place] % (Auto) (4-12) % Eos % (Auto) (1.0-5.0) % Baso % (Auto) (0-2) % Neut # (Auto) (1.6-8.3) # Lymph # (Auto) (0.6-5.0) # [place] # (Auto) (0.0-1.3) # Eos # (Auto) (0.0-0.8) # Baso # (Auto) (0.0-0.2) # Sodium 141 (135-145) mmol/L Potassium 3.4 L (3.5-5.3) mmol/L Chloride 104 (100-110) mmol/L Carbon Dioxide 25 (21-32) mmol/L BUN 10 (7-18) mg/dL Creatinine 0.7 (0.55-1.02) mg/dL Est Cr Clr Drug Dosing 84.53 mL/min Estimated GFR (MDRD) > 60 (>60) BUN/Creatinine Ratio 14.3 (9-20) Glucose 115 (80-116) mg/dL Lactic Acid (0.4-2.0) mmol/L Calcium 9.0 (8.6-10.2) mg/dL Magnesium 1.6 L (1.8-2.5) mg/dL Total Bilirubin 0.5 (0.1-1.3) mg/dL AST 77 H D (5-25) IU/L ALT 105 H D (12-36) U/L Alkaline Phosphatase 245 H (56-112) IU/L C-Reactive Protein (0.5-0.9) mg/dL Total Protein 6.9 (6.0-8.0) g/dL Albumin 3.4 L (3.5-5.2) g/dL Globulin 3.5 g/dL Albumin/Globulin Ratio 1.0 Lipase (73-393) U/L Urine Color (YELLOW) Urine Appearance (CLEAR) Urine pH (5.0-6.5) Ur Specific [place] (1.010-1.025) Urine Protein (NEGATIVE) mg/dL Urine Glucose (UA) (NORMAL) mg/dL Urine Ketones (NEGATIVE) mg/dL Urine Occult Blood (NEGATIVE) Urine Nitrite (NEGATIVE) Urine Bilirubin (NEGATIVE) Urine Urobilinogen (NEGATIVE) mg/dL Ur Leukocyte Esterase (NEGATIVE) Urine RBC (0-5) Urine WBC (0-5) Ur Squamous Epith Cells (NS,R,O) Urine Bacteria (NS) Urine Opiates Screen (NEGATIVE) Ur Oxycodone Screen (NEGATIVE) Ur Propoxyphene Screen (NEGATIVE) Ur Barbituates Screen (NEGATIVE) Ur Tricyclics Screen (NEGATIVE) Ur Phencyclidine Scrn (NEGATIVE) Ur Amphetamine Screen (NEGATIVE) Urine MDMA Screen (NEGATIVE) U Benzodiazepines Scrn (NEGATIVE) U Cocaine Metab Screen (NEGATIVE) U Marijuana (THC) Screen (NEGATIVE) Ethyl Alcohol (<0.03) % Meds: Medications Discontinued Medications Generic Name Dose Route Start Last Admin Trade Name Tram PRN Reason Stop Dose Admin Diphenhydramine HCl 25 mg 08/26/20 14:37 08/26/20 15:17 Benadryl IVPUSH 08/26/20 14:38 25 mg ONETIME ONE Administration Diphenhydramine HCl 25 mg 08/26/20 16:10 08/26/20 16:27 Benadryl IVPUSH 08/26/20 16:11 25 mg ONETIME ONE Administration Haloperidol Lactate 2.5 mg 08/26/20 14:37 08/26/20 15:17 Haldol IVPUSH 08/26/20 14:38 2.5 mg ONETIME ONE Administration Haloperidol Lactate 2.5 mg 08/26/20 16:10 08/26/20 16:27 Haldol IVPUSH 08/26/20 16:11 2.5 mg ONETIME ONE Administration Sodium Chloride 1,000 mls @ 999 mls/hr 08/26/20 12:15 08/26/20 13:00 Normal Saline IV 08/26/20 13:15 999 mls/hr .BOLUS ONE Administration Magnesium Sulfate 2 gm/ 104 mls @ 104 mls/hr 08/26/20 13:45 Dextrose/Water IV 08/26/20 14:44 ONETIME ONE Iopamidol 100 ml 08/26/20 13:35 08/26/20 14:04 Isovue-370 (76%) IV 08/26/20 13:36 100 ml . DIRECTED ONE Administration Ketorolac Tromethamine 30 mg 08/26/20 17:39 08/26/20 17:55 Toradol IVPUSH 08/26/20 17:40 30 mg ONETIME ONE Administration Lorazepam 1 mg 08/26/20 16:10 08/26/20 16:27 Ativan IVPUSH 08/26/20 16:11 1 mg ONETIME ONE Administration Magnesium Sulfate 2 gm 08/26/20 13:30 08/26/20 13:44 Magnesium Sulfate In Water Premix IV 08/26/20 13:31 2 gm ONETIME ONE Administration Metoclopramide HCl 10 mg 08/26/20 12:15 08/26/20 12:35 Reglan IVPUSH 08/26/20 12:16 10 mg ONETIME ONE Administration Pantoprazole Sodium 40 mg 08/26/20 12:17 08/26/20 12:35 Protonix Iv IVPUSH 08/26/20 12:18 40 mg ONETIME ONE Administration - Radiology Interpretation Free Text/Narrative:: CT scan of abdomen and pelvis shows mildly prominent fluid-filled loops of proximal and mid small bowel without any transition point. There is a mild amount of fluid stool within the descending colon that could be associated with diarrhea. There is an asymmetric masslike soft tissue density in the left posterior breast that will need further evaluation by her primary doctor. There is also age indeterminate fractures of the T12 and L1 vertebra's but there is new interval posterior instrumented fusion of T10-L1. - Re-Assessments/Exams Free Text/Narrative Re-Assessment/Exam: 08/26/20 14:15: Patient was given Reglan and Protonix and she reports that this improved her symptoms. We're awaiting her lab tests including her C. difficile screen. 08/26/20 15:00: CT scan of the abdomen and pelvis shows evidence of gastroenteritis but there is no evidence of obstruction. There is also no evidence of perforation. She reports that her pain is now coming back and she is continuing to report that it is a burning and cramping type pain. The plan at this point will be to give her Haldol and Benadryl to attempt to treat this ab dominal discomfort and the goal will be to try to improve her symptoms other we can discharge patient. She does have a mildly low magnesium and that will be admitted remainder of her blood tests are reassuringly normal. Urinalysis was clear. The and drug screen was positive for opiates although she told me that she had not been taking opiates for quite some time. The drug treatment also positive for benzodiazepines which she is on Ativan. 08/26/20 16:00: She reports that she is continuing to have pain. We will repeat the Haldol and Benadryl. She has had multiple episodes of urine output. She is still having some loose stool today have decreased in the hand in size. C. difficile did come back negative for C. difficile toxin and and antigen. The patient has been having what appears to be some akathisia is related to the Benadryl and she will be given Ativan 1 mg IV. 08/26/20 17:30: Patient is still having some pain although it had been improved and she will be given Toradol 30 mg IV. She has remained hemodynamically stable and her diarrhea has essentially resolved. I discussed all the findings with the patient and that she is safe for discharge at this point. She has been able to get up and move around the room and go to the bathroom on her own without any problems. She is much more awake alert and appropriate that she was and she initially arrived. The plan at this point will be to discharge the patient on omeprazole which I will send a prescription to the pharmacy and will also give the patient a take home pack of Compazine that she can use for the abdominal cramping and for the nausea. She does feel comfortable with this plan for discharge. We will attempt to get her to take her home. 08/26/20 16:45: The patient was able to contact the and he is coming to take the patient home. The patient is feeling improved after the Toradol. His headache multiple cups of ice chips and has had no further vomiting. She did report some mild nausea initially with the ice chips but that has resolved. Departure - Departure Time of Disposition: 19:16 Disposition: Home, Self-Care 01 Condition: Good (Improved.) Clinical Impression: Gastroenteritis, Dehydration Diarrhea Qualifiers: Diarrhea type: unspecified type Qualified Code(s): R19.7 - Diarrhea, unspecified Chronic back pain Qualifiers: Back pain location: low back pain Back pain laterality: bilateral Sciatica presence: without sciatica Qualified Code(s): M54.5 - Low back pain Abdominal pain Qualifiers: Abdominal location: generalized Qualified Code(s): R10.84 - Generalized abdom inal pain - Discharge Information Prescriptions: Omeprazole 40 mg PO QAM #30 capsule. Instructions: Viral Gastroenteritis, Adult, [id number], Dehydration, Adult, [id number], Abdominal Pain, Adult, [id number], Chronic Back Pain, [id number] Referrals: PCP,None [Primary Care Provider] - Forms: ED Department Discharge Additional Instructions: Your blood tests did show mildly low magnesium. You're blood count was normal. Your liver tests were somewhat elevated. Your urine test was normal. The CAT scan of your abdomen showed evidence of a gastroenteritis or inflammation of your intestines that is likely due to a virus. There were also old back fractures. You also have a mass in your left breast that we'll need to be further investigated with additional testing and possibly with surgery through your primary doctor. You need to increase your fluid intake. Avoid milk for the next 3-4 days. You should take probiotics or you can eat yogurt (kefir) daily.I have given you Compazine that you can take for your nausea and stomach cramping. I am also placing you on Prilosec 40 mg daily (this medication was sent electronically to [facility] in [place]. Follow-up with your primary provider this coming week. Back to the emergency department for unrelenting vomiting, high fever, severe weakness, blood in your stool or any other concerning sign or symptom. Sepsis Event Note (ED) - Evaluation Sepsis Screening Result: No Definite Risk - Focused Exam Vital Signs: Vital Signs Pulse Resp BP Pulse Ox 08/26/20 16:00 89 17 156/57 H 96 - My Orders Last 24 Hours: My Active Orders 08/26/20 12:15 EKG 12 Lead [EK] Routine 08/26/20 13:31 Abdomen Pelvis w Cont [CT] Stat - Assessment/Plan Last 24 Hours: My Active Orders 08/26/20 12:15 EKG 12 Lead [EK] Routine 08/26/20 13:31 Abdomen Pelvis w Cont [CT] Stat
[2020-08-26] MEDS ORDERED: Sodium Chloride 0.9% 1,000 ML IV ONE (12:15)
[2020-08-26] MEDS ORDERED: Metoclopramide 10 MG/2 ML SDV IVPUSH ONE (12:15)
[2020-08-26] MEDS ORDERED: Pantoprazole 40 MG Vial IVPUSH ONE (12:17)
[2020-08-26] MEDS ORDERED: Magnesium Sulfate/Water 2 GM/50 ML Premix Bag IV ONE (13:30)
[2020-08-26] MEDS ORDERED: Iopamidol 755 Mg/ML 100 ML Bottle IV ONE (13:35)
[2020-08-26] MEDS ORDERED: Haloperidol Lactate 5 MG/ML SDV IVPUSH ONE ×2 (14:37→16:10)
[2020-08-26] MEDS ORDERED: diphenhydrAMINE 50 MG/ML SDV IVPUSH ONE ×2 (14:37→16:10)
[2020-08-26] MEDS ORDERED: LORazepam 2 MG/ML SDV IVPUSH ONE (16:10)
[2020-08-26] MEDS ORDERED: Ketorolac 30 MG/ML SDV IVPUSH ONE (17:39)
[2020-08-26 17:45] VITALS: BP 156/57; PULSE 89
== END 2020-08-26 20:20 | disposition home or self-care (01) ==
LOC: FB.ED 11:34
DX: K52.9 Noninfective gastroenteritis and colitis, unspecified (principal); E86.0 Dehydration; M54.5 Low back pain; G89.29 Other chronic pain; I10 Essential (primary) hypertension; J45.909 Unspecified asthma, uncomplicated; E66.9 Obesity, unspecified; F41.9 Anxiety disorder, unspecified; F32.9 Major depressive disorder, single episode, unspecified; F17.200 Nicotine dependence, unspecified, uncomplicated; Z88.8 Allergy status to other drugs, medicaments and biological substances; Z88.6 Allergy status to analgesic agent; Z88.1 Allergy status to other antibiotic agents; Z88.5 Allergy status to narcotic agent; Z90.49 Acquired absence of other specified parts of digestive tract; Z90.710 Acquired absence of both cervix and uterus; Z79.899 Other long term (current) drug therapy; Z68.20 Body mass index [BMI] 20.0-20.9, adult
CPT/HCPCS: 36415; 74177; 80053; 80305; 80307; 81001; 83605; 83690; 83735; 85025; 86140; 87230; 93005; 96365; 96375; 96376; 99284; C9113; J1200; J1630; J1885; J2060; J2765; J3475; J7030; Q0164; Q9967

== ENCOUNTER 2020-10-17 10:50 | Observation (INO) | payer MEDICARE, MEDICAID ==
[2020-10-17] MEDS ORDERED: Sodium Chloride 0.9% 10 ML Syringe FLUSH PRN (11:39)
[2020-10-17] MEDS ORDERED: Ketorolac 30 MG/ML SDV IVPUSH ONE (11:41)
[2020-10-17] MEDS ORDERED: Ondansetron 4 MG/2 ML SDV IVPUSH ONE (11:41)
[2020-10-17] MEDS ORDERED: LORazepam 1 MG Tab PO ONE (11:44)
[2020-10-17] MEDS ORDERED: Sodium Chloride 0.9% 1,000 ML IV SCH ×2 (11:45→13:45)
[2020-10-17] MEDS ORDERED: Potassium Chloride 20 MEQ Tab.ER PO ONE ×2 (13:00→15:12)
[2020-10-17] MEDS ORDERED: LORazepam 2 MG/ML SDV IVPUSH STA (13:45)
[2020-10-17] MEDS ORDERED: Morphine 2 MG/ML SYRINGE IVPUSH ONE ×2 (13:46→13:52)
[2020-10-17] MEDS ORDERED: hydrOXYzine HCl 50 MG/ML SDV IM STA (13:46)
[2020-10-17] MEDS: Sodium Chloride 0.9% 1,000 ML IV SCH (15:21)
--- NOTE | 2020-10-17 15:24 | EDM.PDOC ---
ED HPI GENERAL MEDICAL PROBLEM - General Chief Complaint: Gastrointestinal Problem Stated Complaint: WEAKNESS Time Seen by Provider: 10/17/20 11:00 Source of Information: Reports: Patient History Limitations: Reports: No Limitations - History of Present Illness INITIAL COMMENTS - FREE TEXT/NARRATIVE: Patient presented to the ED because N/V/D for 1 day. She also c/o weakness and dizziness. She have chills although she is afebrile. Her diarrhea is mostly watery and had emesis x3. Mid-abdominal pain Pain Score (Numeric/FACES): 10 - Related Data Allergies Allergy/AdvReac Type Severity Reaction Status Date / Time acetaminophen [From Tylox] Allergy Rash Verified 06/09/19 22:17 adhesive Allergy irritated Verified 06/09/19 22:17 skin ampicillin [From Unasyn] Allergy Itching Verified 06/09/19 22:17 ampicillin sodium Allergy Rash Verified 06/09/19 22:17 [From Unasyn] carisoprodol [From Soma] Allergy Confusion Verified 06/09/19 22:17 cephalexin [Cephalexin] Allergy Rash Verified 06/09/19 22:17 diphenhydramine Allergy Other Verified 08/26/20 17:34 [From Benadryl] omega-3 acid ethyl esters Allergy Rash Verified 06/09/19 22:17 oxycodone [From Tylox] Allergy Rash Verified 06/09/19 22:17 quetiapine [From Seroquel] Allergy Confusion Verified 06/09/19 22:17 sulbactam [From Unasyn] Allergy Itching Verified 06/09/19 22:17 sulbactam sodium Allergy Rash Verified 06/09/19 22:17 [From Unasyn] Home Meds: Home Meds Abaloparatide [Tymlos] 1.56 ml SQ DAILY 10/17/20 [History] LORazepam [Ativan] 0.5 mg QID 10/17/20 [History] Omeprazole 40 mg PO QAM PRN 10/17/20 [History] Past Medical History HEENT History: Reports: Impaired Vision Cardiovascular History: Reports: High Cholesterol, Hypertension Respiratory History: Reports: Asthma, SOB Gastrointestinal History: Reports: Irritable Bowel Syndrome, PUD 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: 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, Other GEOTHERMAL SYSTEM INSTALLER History: hysterectomy, Musculoskeletal History: Reports: Arthritis, Back Pain, Chronic, Fracture, Osteoarthritis, Other (See Below) Other Musculoskeletal History: hx fx in back, hx brittle bones Neurological History: Reports: Migraines Psychiatric History: Reports: Anxiety, Depression, Emotional Problems, Psych Hospitalization(s), Suicide Attempt, Suicidal Ideation Endocrine/Metabolic History: Reports: Obesity/BMI 30+ - Infectious Disease History Infectious Disease History: Reports: Chicken Pox, Measles - Past Surgical History HEENT Surgical History: Reports: Adenoidectomy, Oral Surgery, Tonsillectomy Respiratory Surgical History: Reports: None GI Surgical History: Reports: Appendectomy, Bariatric Procedure, Cholecyste ctomy, Colonoscopy, EGD, Other (See Below) Other GI Surgeries/Procedures: gastric bypass Female Surgical History: Reports: Hysterectomy Neurological Surgical History: Reports: Spinal Fusion, Other (See Below) Other Neurological Surgeries/Procedures: hx back surgery x 7 Musculoskeletal Surgical History: Reports: Other (See Below) Other Musculoskeletal Surgeries/Procedures:: BACK SURGERY 7x Social & Family History - Family History Family Medical History: No Pertinent Family History - Tobacco Use Tobacco Use Status *Q: Former Tobacco User Years of Tobacco use: 40 Used Tobacco, but Quit: Yes Month/Year Tobacco Last Used: 2019 - Caffeine Use Caffeine Use: Reports: None Other Caffeine Use: caffeine free - Recreational Drug Use Recreational Drug Use: No - Living Situation & Occupation Living situation: Reports: Other (Lives with her .) ED ROS GENERAL - Review of Systems Review Of Systems: See Below Constitutional: Reports: Chills, Malaise, Weakness. Denies: Fever HEENT: Reports: No Symptoms Respiratory: Reports: Cough Cardiovascular: Reports: No Symptoms Endocrine: Reports: No Symptoms GI/Abdominal: Reports: Diarrhea, Nausea, Vomiting Musculoskeletal: Reports: No Symptoms Skin: Reports: No Symptoms Neurological: Reports: Dizziness Psychiatric: Reports: Anxiety ED EXAM, GENERAL - Physical Exam Exam: See Below Exam Limited By: No Limitations General Appearance: Anxious, Lethargic Ears: Normal External Exam, Normal Canal Nose: Normal Inspection, Normal Mucosa Throat/Mouth: Normal Inspection Head: Atraumatic Neck: Normal Inspection, Supple, Non-Tender Respiratory/Chest: No Respiratory Distress, Lungs Clear, Normal Breath Sounds Cardiovascular: Normal Peripheral Pulses, Regular Rate, Rhythm, No Edema, No Gallop GI/Abdominal: Normal Bowel Sounds, Non-Tender, No Distention, Other (hyperactive bowel sound) Back Exam: Normal Inspection, Full Range of Motion Extremities: Normal Inspection Course - Vital Signs Text/Narrative:: Labs/EKG/CXR was discussed with patient NS 1 X 2 boluses Zofran 4 mg IV Vistaril 50 mg IM Ativan 1 mg PO and IV Morphine 2 mg IV x1 Klor con 20 meq, 2 po x 2 doses After the above treatment she said she still feels crappy and doesn't want to go home Last Recorded V/S: Last Vital Signs Temp 36.8 C 10/17/20 14:10 Pulse 70 10/17/20 14:10 Resp 18 10/17/20 14:10 BP 158/105 H 10/17/20 14:10 Pulse Ox 100 10/17/20 14:10 - Orders/Labs/Meds Orders: Active Orders 24 hr Category Date Time Status EKG Documentation Completion [RC] ASDIRECTED Care 10/17/20 11:40 Active Chest 1V Frontal [CR] Stat Exams 10/17/20 11:39 Taken Sodium Chloride 0.9% [Normal Saline] 1,000 ml Med 10/17/20 11:45 Active IV ASDIRECTED Sodium Chloride 0.9% [Normal Saline] 1,000 ml Med 10/17/20 13:45 Active IV ASDIRECTED Sodium Chloride 0.9% [Normal Saline] 1,000 ml Med 10/17/20 15:15 Active IV ASDIRECTED Sodium Chloride 0.9% [Saline Flush] Med 10/17/20 11:39 Active 10 ml FLUSH ASDIRECTED PRN Isolation [COMM] Routine Oth 10/17/20 11:40 Ordered Saline Lock Insert [OM.PC] Routine Oth 10/17/20 11:39 Ordered EKG 12 Lead [EK] Routine Ther 10/17/20 11:39 Ordered Medication Orders Sodium Chloride (Normal Saline) 1,000 mls @ 999 mls/hr IV ASDIRECTED SHIRIN Last Admin: 10/17/20 12:23 Dose: 999 mls/hr Documented by: JANAE Sodium Chloride (Normal Saline) 1,000 mls @ 999 mls/hr IV ASDIRECTED SHIRIN Last Admin: 10/17/20 13:56 Dose: 999 mls/hr Documented by: JANAE Sodium Chloride (Normal Saline) 1,000 mls @ 125 mls/hr IV ASDIRECTED SHIRIN Sodium Chloride (Saline Flush) 10 ml FLUSH ASDIRECTED PRN PRN Reason: Keep Vein Open Labs: Laboratory Tests 10/17/20 10/17/20 10/17/20 Range/Units 11:20 11:20 11:20 WBC 8.7 (3.0-10.3) x10-3/uL RBC 5.20 (3.60-5.20) x10(6)uL Hgb 14.6 (11.4-15.5) g/dL Hct 43.8 (34.2-48.2) % MCV 84.2 (76.7-100.5) fL MCH 28.0 (23.9-33.9) pg MCHC 33.3 (31.9-34.8) g/dL RDW 14.2 (12.3-16.5) % Plt Count 361 (151-488) x10(3)uL MPV 8.1 (7.1-12.4) fL Neut % (Auto) 86.4 H (30.8-76.2) % Lymph % (Auto) 10.2 L (18.4-52.1) % [place] % (Auto) 2.8 L (4.4-15.7) % Eos % (Auto) 0.1 L (0.6-8.1) % Baso % (Auto) 0.5 (0.2-1.5) % Neut # (Auto) 7.6 H (1.5-6.3) x10-3/uL Lymph # (Auto) 0.9 L (1.0-4.4) x10-3/uL [place] # (Auto) 0.2 L (0.3-1.0) x10-3/uL Eos # (Auto) 0.0 (0.0-0.8) x10-3/uL Baso # (Auto) 0.0 (0.0-0.1) x10-3/uL Sodium 142 (135-145) mmol/L Potassium 3.3 L (3.5-5.3) mmol/L Chloride 104 (100-110) mmol/L Carbon Dioxide 26 (21-32) mmol/L BUN 9 (7-18) mg/dL Creatinine 0.8 (0.55-1.02) mg/dL Est Cr Clr Drug Dosing TNP Estimated GFR (MDRD) > 60 (>60) BUN/Creatinine Ratio 11.3 (9-20) Glucose 126 H (80-116) mg/dL Calcium 9.3 (8.6-10.2) mg/dL Total Bilirubin 0.7 (0.1-1.3) mg/dL AST 21 D (5-25) IU/L ALT 27 D (12-36) U/L Alkaline Phosphatase 156 H (56-112) IU/L Troponin I 5.9 (4.0-60.3) pg/mL NT-Pro-B Natriuret Pep 550 H (<=125) pg/mL Total Protein 7.2 (6.0-8.0) g/dL Albumin 3.3 L (3.5-5.2) g/dL Globulin 3.9 g/dL Albumin/Globulin Ratio 0.9 Urine Color (YELLOW) Urine Appearance (CLEAR) Urine pH (5.0-6.5) Ur Specific [place] (1.010-1.025) Urine Protein (NEGATIVE) mg/dL Urine Glucose (UA) (NORMAL) mg/dL Urine Ketones (NEGATIVE) mg/dL Urine Occult Blood (NEGATIVE) Urine Nitrite (NEGATIVE) Urine Bilirubin (NEGATIVE) Urine Urobilinogen (NEGATIVE) mg/dL Ur Leukocyte Esterase (NEGATIVE) SARS-CoV-2 RNA (IRVIN) (NEGATIVE) 10/17/20 10/17/20 Range/Units 12:37 12:40 WBC (3.0-10.3) x10-3/uL RBC (3.60-5.20) x10(6)uL Hgb (11.4-15.5) g/dL Hct (34.2-48.2) % MCV (76.7-100.5) fL MCH (23.9-33.9) pg MCHC (31.9-34.8) g/dL RDW (12.3-16.5) % Plt Count (151-488) x10(3)uL MPV (7.1-12.4) fL Neut % (Auto) (30.8-76.2) % Lymph % (Auto) (18.4-52.1) % [place] % (Auto) (4.4-15.7) % Eos % (Auto) (0.6-8.1) % Baso % (Auto) (0.2-1.5) % Neut # (Auto) (1.5-6.3) x10-3/uL Lymph # (Auto) (1.0-4.4) x10-3/uL [place] # (Auto) (0.3-1.0) x10-3/uL Eos # (Auto) (0.0-0.8) x10-3/uL Baso # (Auto) (0.0-0.1) x10-3/uL Sodium (135-145) mmol/L Potassium (3.5-5.3) mmol/L Chloride (100-110) mmol/L Carbon Dioxide (21-32) mmol/L BUN (7-18) mg/dL Creatinine (0.55-1.02) mg/dL Est Cr Clr Drug Dosing Estimated GFR (MDRD) (>60) BUN/Creatinine Ratio (9-20) Glucose (80-116) mg/dL Calcium (8.6-10.2) mg/dL Total Bilirubin (0.1-1.3) mg/dL AST (5-25) IU/L ALT (12-36) U/L Alkaline Phosphatase (56-112) IU/L Troponin I (4.0-60.3) pg/mL NT-Pro-B Natriuret Pep (<=125) pg/mL Total Protein (6.0-8.0) g/dL Albumin (3.5-5.2) g/dL Globulin g/dL Albumin/Globulin Ratio Urine Color Yellow (YELLOW) Urine Appearance Clear (CLEAR) Urine pH 7.0 H (5.0-6.5) Ur Specific [place] 1.005 L (1.010-1.025) Urine Protein Negative (NEGATIVE) mg/dL Urine Glucose (UA) Normal (NORMAL) mg/dL Urine Ketones 15 H (NEGATIVE) mg/dL Urine Occult Blood Moderate H (NEGATIVE) Urine Nitrite Negative (NEGATIVE) Urine Bilirubin Negative (NEGATIVE) Urine Urobilinogen Normal (NEGATIVE) mg/dL Ur Leukocyte Esterase Negative (NEGATIVE) SARS-CoV-2 RNA (IRVIN) Negative (NEGATIVE) Meds: Medications Generic Name Dose Route Start Last Admin Trade Name Freq PRN Reason Stop Dose Admin Sodium Chloride 1,000 mls @ 999 mls/hr 10/17/20 11:45 10/17/20 12:23 Normal Saline IV 999 mls/hr ASDIRECTED SHIRIN Administration Sodium Chloride 1,000 mls @ 999 mls/hr 10/17/20 13:45 10/17/20 13:56 Normal Saline IV 999 mls/hr ASDIRECTED SHIRIN Administration Sodium Chloride 1,000 mls @ 125 mls/hr 10/17/20 15:15 Normal Saline IV ASDIRECTED SHIRIN Sodium Chloride 10 ml 10/17/20 11:39 Saline Flush FLUSH ASDIRECTED PRN Keep Vein Open Discontinued Medications Generic Name Dose Route Start Last Admin Trade Name Freq PRN Reason Stop Dose Admin Hydroxyzine HCl 50 mg 10/17/20 13:46 Vistaril IM 10/17/20 13:47 NOW STA Ketorolac Tromethamine 30 mg 10/17/20 11:41 10/17/20 12:27 Toradol IVPUSH 10/17/20 11:42 30 mg ONETIME ONE Administration Lorazepam 1 mg 10/17/20 11:44 10/17/20 12:23 Ativan PO 10/17/20 11:45 1 mg ONETIME ONE Administration Lorazepam 1 mg 10/17/20 13:45 10/17/20 14:00 Ativan IVPUSH 10/17/20 13:46 1 mg NOW STA Administration Morphine Sulfate 2 mg 10/17/20 13:46 10/17/20 14:02 Morphine IVPUSH 10/17/20 13:47 2 mg ONETIME ONE Administration Morphine Sulfate 2 mg 10/17/20 13:52 Morphine IVPUSH 10/17/20 13:53 ONETIME ONE Ondansetron HCl 4 mg 10/17/20 11:41 10/17/20 12:25 Zofran IVPUSH 10/17/20 11:42 4 mg ONETIME ONE Administration Potassium Chloride 40 meq 10/17/20 13:00 10/17/20 13:42 Klor-Con M20 PO 10/17/20 13:01 40 meq ONETIME ONE Administration Potassium Chloride 40 meq 10/17/20 15:12 Klor-Con M20 PO 10/17/20 15:13 ONETIME ONE Departure - Departure Time of Disposition: 15:25 Disposition: Refer to Observation Condition: Good Clinical Impression: Acute viral syndrome, Gastroenteritis, Dehydration, Hypokalemia - Discharge Information Referrals: PCP,None [Primary Care Provider] - Sepsis Event Note (ED) - Evaluation Sepsis Screening Result: No Definite Risk - Focused Exam Vital Signs: Vital Signs Temp Pulse Resp BP Pulse Ox 10/17/20 14:10 36.8 C 70 18 158/105 H 100 10/17/20 12:26 36.3 C 60 20 161/90 H 100 10/17/20 10:50 36.7 C 59 L 20 165/81 H 100 - My Orders Last 24 Hours: My Active Orders 10/17/20 11:39 Chest 1V Frontal [CR] Stat Sodium Chloride 0.9% [Saline Flush] 10 ml FLUSH ASDIRECTED PRN Saline Lock Insert [OM.PC] Routine EKG 12 Lead [EK] Routine 10/17/20 11:40 EKG Documentation Completion [RC] ASDIRECTED Isolation [COMM] Routine 10/17/20 11:45 Sodium Chloride 0.9% [Normal Saline] 1,000 ml IV ASDIRECTED 10/17/20 13:45 Sodium Chloride 0.9% [Normal Saline] 1,000 ml IV ASDIRECTED 10/17/20 15:15 Sodium Chloride 0.9% [Normal Saline] 1,000 ml IV ASDIRECTED - Assessment/Plan Last 24 Hours: My Active Orders 10/17/20 11:39 Chest 1V Frontal [CR] Stat Sodium Chloride 0.9% [Saline Flush] 10 ml FLUSH ASDIRECTED PRN Saline Lock Insert [OM.PC] Routine EKG 12 Lead [EK] Routine 10/17/20 11:40 EKG Documentation Completion [RC] ASDIRECTED Isolation [COMM] Routine 10/17/20 11:45 Sodium Chloride 0.9% [Normal Saline] 1,000 ml IV ASDIRECTED 10/17/20 13:45 Sodium Chloride 0.9% [Normal Saline] 1,000 ml IV ASDIRECTED 10/17/20 15:15 Sodium Chloride 0.9% [Normal Saline] 1,000 ml IV ASDIRECTED
[2020-10-17] MEDS ORDERED: LORazepam 2 MG/ML SDV IV PRN (15:26)
[2020-10-17] MEDS ORDERED: Acetaminophen/HYDROcodone 325-5 MG Tab PO PRN (15:26)
[2020-10-17] MEDS ORDERED: Non-Formulary Medication 1 Each (Omeprazole [Omeprazole] 40 MG) PO PRN (15:31)
[2020-10-17] MEDS ORDERED: Atropine/Diphenoxylate 0.025-2.5 MG Tab PO PRN (15:31)
[2020-10-17] MEDS ORDERED: Acetaminophen 500 MG Tab PO PRN (15:32)
[2020-10-17] MEDS ORDERED: Ondansetron 4 MG/2 ML SDV ONE (20:09)
[2020-10-17] MEDS: Ondansetron 4 MG/2 ML SDV IV PRN (20:15)
[2020-10-17] MEDS: Morphine 2 MG/ML SYRINGE IVPUSH PRN (20:18)
[2020-10-18] MEDS: Sodium Chloride 0.9% 1,000 ML IV SCH (00:07)
[2020-10-18] MEDS: Ondansetron 4 MG/2 ML SDV IV PRN ×3 (00:25→08:51)
[2020-10-18] MEDS: Morphine 2 MG/ML SYRINGE IVPUSH PRN ×3 (00:25→08:54)
--- NOTE | 2020-10-18 08:44 | PCM.HP.2 ---
H&P History of Present Illness - General Date of Service: 10/18/20 Admit Problem/Dx: Admission Diagnosis/Problem Admission Diagnosis/Problem Acute viral syndrome Source of Information: Patient History Limitations: Reports: No Limitations - History of Present Illness Initial Comments - Free Text/Narative: Lakeshia is a 55 yo female who was admitted for lethargy,vomiting and chronic pain. She was thoroughly investigated in the ED,and was advised to go home but refused. She reports being under a lot os stress,and her is also sick,and ostensibly unable to take care of her. She had 3 emesis yesterday and some loose watery stools. Overnight ,she got maintenance fluids,and had good urine out put. She has no fever,cough or cardiovascular complaints. She does endorse chronic back pain-waiting a consult with spine center in [place]. Mid-abdominal pain Pain Score (Numeric/FACES): 0 - Related Data Allergies/Adverse Reactions: Allergies Allergy/AdvReac Type Severity Reaction Status Date / Time acetaminophen [From Tylox] Allergy Rash Verified 06/09/19 22:17 adhesive Allergy irritated Verified 06/09/19 22:17 skin ampicillin [From Unasyn] Allergy Itching Verified 06/09/19 22:17 ampicillin sodium Allergy Rash Verified 06/09/19 22:17 [From Unasyn] carisoprodol [From Soma] Allergy Confusion Verified 06/09/19 22:17 cephalexin [Cephalexin] Allergy Rash Verified 06/09/19 22:17 diphenhydramine Allergy Other Verified 08/26/20 17:34 [From Benadryl] omega-3 acid ethyl esters Allergy Rash Verified 06/09/19 22:17 oxycodone [From Tylox] Allergy Rash Verified 06/09/19 22:17 quetiapine [From Seroquel] Allergy Confusion Verified 06/09/19 22:17 sulbactam [From Unasyn] Allergy Itching Verified 06/09/19 22:17 sulbactam sodium Allergy Rash Verified 06/09/19 22:17 [From Unasyn] Home Medications: Home Meds Abaloparatide [Tymlos] 1.56 ml SQ DAILY 10/17/20 [History] LORazepam [Ativan] 0.5 mg QID 10/17/20 [History] Omeprazole 40 mg PO QAM PRN 10/17/20 [History] Past Medical History HEENT History: Reports: Impaired Vision Cardiovascular History: Reports: High Cholesterol, Hypertension Respiratory History: Reports: Asthma, SOB Gastrointestinal History: Reports: Irritable Bowel Syndrome, PUD [employer]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, Other OB/BYN History: hysterectomy, Musculoskeletal History: Reports: Arthritis, Back Pain, Chronic, Fracture, Osteoarthritis, Other (See Below) Other Musculoskeletal History: hx fx in back, hx brittle bones Neurological History: Reports: Migraines Psychiatric History: Reports: Anxiety, Depression, Emotional Problems, Psych Hospitalization(s), Suicide Attempt, Suicidal Ideation Endocrine/Metabolic History: Reports: Obesity/BMI 30+ - Infectious Disease History Infectious Disease History: Reports: Chicken Pox, Measles - Past Surgical History HEENT Surgical History: Reports: Adenoidectomy, Oral Surgery, Tonsillectomy Respiratory Surgical History: Reports: None GI Surgical History: Reports: Appendectomy, Bariatric Procedure, Cholecy stectomy, Colonoscopy, EGD, Other (See Below) Other GI Surgeries/Procedures: gastric bypass Female Surgical History: Reports: Hysterectomy Neurological Surgical History: Reports: Spinal Fusion, Other (See Below) Other Neurological Surgeries/Procedures: hx back surgery x 7 Musculoskeletal Surgical History: Reports: Other (See Below) Other Musculoskeletal Surgeries/Procedures:: BACK SURGERY 7x Social & Family History - Family History Family Medical History: No Pertinent Family History - Tobacco Use Tobacco Use Status *Q: Former Tobacco User Years of Tobacco use: 40 Packs/Tins Daily: 1 Used Tobacco, but Quit: Yes Month/Year Tobacco Last Used: 09/2020 - Caffeine Use Caffeine Use: Reports: None Other Caffeine Use: caffeine free - Recreational Drug Use Recreational Drug Use: No - Living Situation & Occupation Living situation: Reports: Other (Lives with her .) H&P Review of Systems - Review of Systems: Review Of Systems: Comprehensive ROS is negative, except as noted in HPI. Exam - Exam Exam: See Below - Vital Signs Vital Signs: Last Vital Signs Temp 97.8 F 10/17/20 22:50 Pulse 57 L 10/18/20 04:30 Resp 20 10/18/20 04:30 BP 143/86 H 10/18/20 04:30 Pulse Ox 97 10/18/20 04:30 Weight: 56.744 kg - Exam General: Alert, Lethargic HEENT: PERRLA, EOMI, Hearing Intact, Mucosa Moist & [place] Neck: Supple, Trachea Midline Lungs: Clear to Auscultation, Normal Respiratory Effort Cardiovascular: Regular Rate, Regular Rhythm GI/Abdominal Exam: Normal Bowel Sounds, Soft (Female) Exam: Deferred Rectal (Female) Exam: Deferred Back Exam: Normal Inspection Extremities: Normal Inspection. No: Pedal Edema Skin: Warm Neurological: Cranial Nerves Intact Neuro Extensive - Mental Status: Alert, Oriented x3 Neuro Extensive - Motor, Sensory, Reflexes: CN II-XII Intact Psychiatric: Alert, Anxious, Depressed - Patient Data Lab Results Last 24 hrs: Laboratory Results - last 24 hr 10/17/20 10/17/20 10/17/20 Range/Units 11:20 11:20 11:20 WBC 8.7 (3.0-10.3) x10-3/uL RBC 5.20 (3.60-5.20) x10(6)uL Hgb 14.6 (11.4-15.5) g/dL Hct 43.8 (34.2-48.2) % MCV 84.2 (76.7-100.5) fL MCH 28.0 (23.9-33.9) pg MCHC 33.3 (31.9-34.8) g/dL RDW 14.2 (12.3-16.5) % Plt Count 361 (151-488) x10(3)uL MPV 8.1 (7.1-12.4) fL Neut % (Auto) 86.4 H (30.8-76.2) % Lymph % (Auto) 10.2 L (18.4-52.1) % [place] % (Auto) 2.8 L (4.4-15.7) % Eos % (Auto) 0.1 L (0.6-8.1) % Baso % (Auto) 0.5 (0.2-1.5) % Neut # (Auto) 7.6 H (1.5-6.3) x10-3/uL Lymph # (Auto) 0.9 L (1.0-4.4) x10-3/uL [place] # (Auto) 0.2 L (0.3-1.0) x10-3/uL Eos # (Auto) 0.0 (0.0-0.8) x10-3/uL Baso # (Auto) 0.0 (0.0-0.1) x10-3/uL Sodium 142 (135-145) mmol/L Potassium 3.3 L (3.5-5.3) mmol/L Chloride 104 (100-110) mmol/L Carbon Dioxide 26 (21-32) mmol/L BUN 9 (7-18) mg/dL Creatinine 0.8 (0.55-1.02) mg/dL Est Cr Clr Drug Dosing TNP Estimated GFR (MDRD) > 60 (>60) BUN/Creatinine Ratio 11.3 (9-20) Glucose 126 H (80-116) mg/dL Calcium 9.3 (8.6-10.2) mg/dL Total Bilirubin 0.7 (0.1-1.3) mg/dL AST 21 D (5-25) IU/L ALT 27 D (12-36) U/L Alkaline Phosphatase 156 H (56-112) IU/L Troponin I 5.9 (4.0-60.3) pg/mL NT-Pro-B Natriuret Pep 550 H (<=125) pg/mL Total Protein 7.2 (6.0-8.0) g/dL Albumin 3.3 L (3.5-5.2) g/dL Globulin 3.9 g/dL Albumin/Globulin Ratio 0.9 Urine Color (YELLOW) Urine Appearance (CLEAR) Urine pH (5.0-6.5) Ur Specific [place] (1.010-1.025) Urine Protein (NEGATIVE) mg/dL Urine Glucose (UA) (NORMAL) mg/dL Urine Ketones (NEGATIVE) mg/dL Urine Occult Blood (NEGATIVE) Urine Nitrite (NEGATIVE) Urine Bilirubin (NEGATIVE) Urine Urobilinogen (NEGATIVE) mg/dL Ur Leukocyte Esterase (NEGATIVE) SARS-CoV-2 RNA (IRVIN) (NEGATIVE) 10/17/20 10/17/20 10/18/20 Range/Units 12:37 12:40 06:15 WBC 8.5 (3.0-10.3) x10-3/uL RBC 4.85 (3.60-5.20) x10(6)uL Hgb 13.7 (11.4-15.5) g/dL Hct 41.1 (34.2-48.2) % MCV 84.7 (76.7-100.5) fL MCH 28.1 (23.9-33.9) pg MCHC 33.2 (31.9-34.8) g/dL RDW 14.5 (12.3-16.5) % Plt Count 330 (151-488) x10(3)uL MPV 7.6 (7.1-12.4) fL Neut % (Auto) 76.9 H (30.8-76.2) % Lymph % (Auto) 17.8 L (18.4-52.1) % [place] % (Auto) 4.6 (4.4-15.7) % Eos % (Auto) 0.2 L (0.6-8.1) % Baso % (Auto) 0.5 (0.2-1.5) % Neut # (Auto) 6.5 H (1.5-6.3) x10-3/uL Lymph # (Auto) 1.5 (1.0-4.4) x10-3/uL [place] # (Auto) 0.4 (0.3-1.0) x10-3/uL Eos # (Auto) 0.0 (0.0-0.8) x10-3/uL Baso # (Auto) 0.0 (0.0-0.1) x10-3/uL Sodium (135-145) mmol/L Potassium (3.5-5.3) mmol/L Chloride (100-110) mmol/L Carbon Dioxide (21-32) mmol/L BUN (7-18) mg/dL Creatinine (0.55-1.02) mg/dL Est Cr Clr Drug Dosing Estimated GFR (MDRD) (>60) BUN/Creatinine Ratio (9-20) Glucose (80-116) mg/dL Calcium (8.6-10.2) mg/dL Total Bilirubin (0.1-1.3) mg/dL AST (5-25) IU/L ALT (12-36) U/L Alkaline Phosphatase (56-112) IU/L Troponin I (4.0-60.3) pg/mL NT-Pro-B Natriuret Pep (<=125) pg/mL Total Protein (6.0-8.0) g/dL Albumin (3.5-5.2) g/dL Globulin g/dL Albumin/Globulin Ratio Urine Color Yellow (YELLOW) Urine Appearance Clear (CLEAR) Urine pH 7.0 H (5.0-6.5) Ur Specific [place] 1.005 L (1.010-1.025) Urine Protein Negative (NEGATIVE) mg/dL Urine Glucose (UA) Normal (NORMAL) mg/dL Urine Ketones 15 H (NEGATIVE) mg/dL Urine Occult Blood Moderate H (NEGATIVE) Urine Nitrite Negative (NEGATIVE) Urine Bilirubin Negative (NEGATIVE) Urine Urobilinogen Normal (NEGATIVE) mg/dL Ur Leukocyte Esterase Negative (NEGATIVE) SARS-CoV-2 RNA (IRVIN) Negative (NEGATIVE) 10/18/20 Range/Units 06:15 WBC (3.0-10.3) x10-3/uL RBC (3.60-5.20) x10(6)uL Hgb (11.4-15.5) g/dL Hct (34.2-48.2) % MCV (76.7-100.5) fL MCH (23.9-33.9) pg MCHC (31.9-34.8) g/dL RDW (12.3-16.5) % Plt Count (151-488) x10(3)uL MPV (7.1-12.4) fL Neut % (Auto) (30.8-76.2) % Lymph % (Auto) (18.4-52.1) % [place] % (Auto) (4.4-15.7) % Eos % (Auto) (0.6-8.1) % Baso % (Auto) (0.2-1.5) % Neut # (Auto) (1.5-6.3) x10-3/uL Lymph # (Auto) (1.0-4.4) x10-3/uL [place] # (Auto) (0.3-1.0) x10-3/uL Eos # (Auto) (0.0-0.8) x10-3/uL Baso # (Auto) (0.0-0.1) x10-3/uL Sodium 143 (135-145) mmol/L Potassium 4.1 (3.5-5.3) mmol/L Chloride 108 (100-110) mmol/L Carbon Dioxide 25 (21-32) mmol/L BUN 8 (7-18) mg/dL Creatinine 0.7 (0.55-1.02) mg/dL Est Cr Clr Drug Dosing 81.34 Estimated GFR (MDRD) > 60 (>60) BUN/Creatinine Ratio 11.4 (9-20) Glucose 110 (80-116) mg/dL Calcium 8.8 (8.6-10.2) mg/dL Total Bilirubin (0.1-1.3) mg/dL AST (5-25) IU/L ALT (12-36) U/L Alkaline Phosphatase (56-112) IU/L Troponin I (4.0-60.3) pg/mL NT-Pro-B Natriuret Pep (<=125) pg/mL Total Protein (6.0-8.0) g/dL Albumin (3.5-5.2) g/dL Globulin g/dL Albumin/Globulin Ratio Urine Color (YELLOW) Urine Appearance (CLEAR) Urine pH (5.0-6.5) Ur Specific [place] (1.010-1.025) Urine Protein (NEGATIVE) mg/dL Urine Glucose (UA) (NORMAL) mg/dL Urine Ketones (NEGATIVE) mg/dL Urine Occult Blood (NEGATIVE) Urine Nitrite (NEGATIVE) Urine Bilirubin (NEGATIVE) Urine Urobilinogen (NEGATIVE) mg/dL Ur Leukocyte Esterase (NEGATIVE) SARS-CoV-2 RNA (IRVIN) (NEGATIVE) Result Diagrams: 10/18/20 06:15 10/18/20 06:15 Indra Results Last 24 hrs: Microbiology 10/17/20 12:38 Influenza Type A Antigen Screen - Final Nasopharyngeal Swab NEGATIVE INFLUENZA A VIRUS AG REFERENCE RANGE: NEGATIVE Influenza Type B Antigen Screen - Final NEGATIVE INFLUENZA B VIRUS AG REFERENCE RANGE: NEGATIVE Sepsis Event Note - Evaluation Sepsis Screening Result: No Definite Risk - Focused Exam Vital Signs: Vital Signs Temp Pulse Resp BP Pulse Ox 10/18/20 04:30 57 L 20 143/86 H 97 10/17/20 22:50 97.8 F 59 L 18 167/89 H 100 - Problem List (1) Depression SNOMED Code(s): 65395558 ICD Code: F32.9 - MAJOR DEPRESSIVE DISORDER, SINGLE EPISODE, UNSPECIFIED Status: Acute Current Visit: Yes Qualifiers: Depression Type: major depressive disorder (2) Acute viral syndrome SNOMED Code(s): 645331989 ICD Code: B34.9 - VIRAL INFECTION, UNSPECIFIED Status: Acute Current Visit: Yes (3) Abdominal pain SNOMED Code(s): 13560371 ICD Code: R10.9 - UNSPECIFIED ABDOMINAL PAIN Status: Acute Current Visit: No Qualifiers: Abdominal location: generalized Qualified Code(s): R10.84 - Generalized abdominal pain (4) Chronic back pain SNOMED Code(s): 188895225 ICD Code: M54.9 - DORSALGIA, UNSPECIFIED; G89.29 - OTHER CHRONIC PAIN Status: Acute Current Visit: No Qualifiers: Back pain location: low back pain Back pain laterality: bilateral Sciatica presence: without sciatica Qualified Code(s): M54.5 - Low back pain; G89.29 - Other chronic pain (5) Lethargy SNOMED Code(s): 137375237 ICD Code: R53.83 - OTHER FATIGUE Status: Acute Current Visit: No Problem List Initiated/Reviewed/Updated: Yes Orders Last 24hrs: Active Orders 24 hr Category Date Time Status Patient Status [ADT] Routine ADT 10/17/20 15:26 Active Height and Weight [RC] DAILY Care 10/17/20 15:26 Active Intake and Output [RC] 06,14,22 Care 10/17/20 15:28 Active Up With Assistance [RC] ASDIRECTED Care 10/17/20 15:26 Active VTE/DVT Education [RC] Per Unit Routine Care 10/17/20 15:26 Active Vital Signs [RC] Q4H Care 10/17/20 15:26 Active Regular Diet [DIET] Diet 10/17/20 Dinner Ordered Chest 1V Frontal [CR] Stat Exams 10/17/20 11:39 Taken Abaloparatide [Tymlos] Med 10/18/20 09:00 Active 1.56 ml SQ DAILY Atropine/Diphenoxylate [Lomotil 0.025-2.5 MG] Med 10/17/20 15:31 Active 2 tab PO QID PRN LORazepam [Ativan] Med 10/17/20 15:26 Active 1 mg IV Q6H PRN Morphine Med 10/17/20 18:23 Active 2 mg IVPUSH Q4H PRN Omeprazole [Omeprazole] Med 10/17/20 15:31 Active 40 mg PO QAM PRN Ondansetron [Zofran] Med 10/17/20 15:26 Active 4 mg IV Q4H PRN Sodium Chloride 0.9% [Normal Saline] 1,000 ml Med 10/17/20 15:15 Active IV ASDIRECTED Sodium Chloride 0.9% [Saline Flush] Med 10/17/20 11:39 Active 10 ml FLUSH ASDIRECTED PRN Isolation [COMM] Routine Oth 10/17/20 11:40 Ordered Saline Lock Insert [OM.PC] Routine Oth 10/17/20 11:39 Ordered Sequential Compression Device [OM.PC] Per Unit Routine Oth 10/17/20 15:29 Ordered Resuscitation Status Routine Resus Stat 10/17/20 15:26 Ordered EKG 12 Lead [EK] Routine Ther 10/17/20 11:39 Ordered Medication Orders Diphenoxylate HCl/Atropine (Lomotil 0.025-2.5 Mg) 2 tab PO QID PRN PRN Reason: Diarrhea Sodium Chloride (Normal Saline) 1,000 mls @ 75 mls/hr IV ASDIRECTED SHIRIN Last Admin: 10/18/20 00:07 Dose: 75 mls/hr Documented by: Infusion: 10/18/20 00:07 Dose: 75 mls/hr Documented by: Infusion: 10/17/20 22:04 Dose: 75 mls/hr Documented by: Admin: 10/17/20 15:21 Dose: 125 mls/hr Documented by: JANAE Lorazepam (Ativan) 1 mg IV Q6H PRN PRN Reason: Nausea/Vomiting Morphine Sulfate (Morphine) 2 mg IVPUSH Q4H PRN PRN Reason: Pain Last Admin: 10/18/20 04:32 Dose: 2 mg Documented by: Admin: 10/18/20 00:25 Dose: 2 mg Documented by: Admin: 10/17/20 20:18 Dose: 2 mg Documented by: MINH Non-Formulary Medication (Abaloparatide [Tymlos]) 1.56 ml SQ DAILY SHIRIN Non-Formulary Medication (Omeprazole [Omeprazole]) 40 mg PO QAM PRN PRN Reason: Pain Ondansetron HCl (Zofran) 4 mg IV Q4H PRN PRN Reason: Nausea/Vomiting Last Admin: 10/18/20 04:32 Dose: 4 mg Documented by: Admin: 10/18/20 00:25 Dose: 4 mg Documented by: Admin: 10/17/20 20:15 Dose: 4 mg Documented by: MINH Sodium Chloride (Saline Flush) 10 ml FLUSH ASDIRECTED PRN PRN Reason: Keep Vein Open Assessment/Plan Comment:: Labs were reviewed,Potassium normal. COVID-19 negative. I will DC her home to see her PCP tomorrow.
[2020-10-18 08:48] VITALS: BP 138/74; PULSE 63
[2020-10-18] MEDS ORDERED: ABALOPARATIDE SQ SCH (09:00)
== END 2020-10-18 09:22 | disposition home or self-care (01) ==
LOC: FB.ED 10:50 → FB.MS 15:26
PROVIDERS: ADMIT Emergency Medicine; ATTEND Family Medicine
DX: B34.9 Viral infection, unspecified (principal); G89.29 Other chronic pain; R53.83 Other fatigue; E78.00 Pure hypercholesterolemia, unspecified; I10 Essential (primary) hypertension; J45.909 Unspecified asthma, uncomplicated; F32.9 Major depressive disorder, single episode, unspecified; F41.9 Anxiety disorder, unspecified; E66.9 Obesity, unspecified; M54.5 Low back pain; Z20.828 Contact with and (suspected) exposure to other viral communicable diseases; Z88.8 Allergy status to other drugs, medicaments and biological substances; Z91.048 Other nonmedicinal substance allergy status; Z88.1 Allergy status to other antibiotic agents; Z88.5 Allergy status to narcotic agent; Z79.899 Other long term (current) drug therapy; Z90.49 Acquired absence of other specified parts of digestive tract; Z98.890 Other specified postprocedural states; Z87.891 Personal history of nicotine dependence; Z68.20 Body mass index [BMI] 20.0-20.9, adult
CPT/HCPCS: 36415; 71045; 80048; 80053; 81003; 83880; 84484; 85025; 87804; 87804-59; 93005; 96374; 96375; 99285-25; A9270-GY; J1885; J2060; J2270; J2405; J3410; J7030; U0002

== ENCOUNTER 2020-10-18 12:02 | Emergency (ER) | payer MEDICARE, MEDICAID ==
--- NOTE | 2020-10-18 13:28 | EDM.PDOC ---
ED HPI GENERAL MEDICAL PROBLEM - General Stated Complaint: WEAKNESS Time Seen by Provider: 10/18/20 12:10 Source of Information: Reports: Patient History Limitations: Reports: No Limitations - History of Present Illness INITIAL COMMENTS - FREE TEXT/NARRATIVE: Patient presented to the ED because of weakness due to an acute viral illness. She has an extensive workup yesterday and all labs are normal except for a mild hypokalemia with a potassium of 3.3 which was replace. Her EKG, CXR, was also normal as well as her Covid and Influenza test. She was given 2 L of IVF NS,Zpfran 4mg IV. and morphine 2 mg IV x 2 doses. She was subsequently admitted because she refused to go home. - Related Data Allergies Allergy/AdvReac Type Severity Reaction Status Date / Time acetaminophen [From Tylox] Allergy Rash Verified 06/09/19 22:17 adhesive Allergy irritated Verified 06/09/19 22:17 skin ampicillin [From Unasyn] Allergy Itching Verified 06/09/19 22:17 ampicillin sodium Allergy Rash Verified 06/09/19 22:17 [From Unasyn] carisoprodol [From Soma] Allergy Confusion Verified 06/09/19 22:17 cephalexin [Cephalexin] Allergy Rash Verified 06/09/19 22:17 diclofenac [From Voltaren] Allergy Hives Verified 10/18/20 10:22 diphenhydramine Allergy Other Verified 08/26/20 17:34 [From Benadryl] omega-3 acid ethyl esters Allergy Rash Verified 06/09/19 22:17 oxycodone [From Tylox] Allergy Rash Verified 06/09/19 22:17 quetiapine [From Seroquel] Allergy Confusion Verified 06/09/19 22:17 sulbactam [From Unasyn] Allergy Itching Verified 06/09/19 22:17 sulbactam sodium Allergy Rash Verified 06/09/19 22:17 [From Unasyn] Home Meds: Home Meds Abaloparatide [Tymlos] 1.56 ml SQ DAILY 10/17/20 [History] LORazepam [Ativan] 0.5 mg QID 10/17/20 [History] Omeprazole 40 mg PO QAM PRN 10/17/20 [History] Diclofenac Sodium 75 mg PO BID #30 tablet. 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 TICKET ATTENDANT History: hysterectomy, Musculoskeletal History: Reports: Arthritis, Back Pain, Chronic, Fracture, Osteoarthritis, Other (See Below) Other Musculoskeletal History: hx fx in back, hx brittle bones Neurological History: Reports: Migraines Psychiatric History: Reports: Anxiety, Depression, Emotional Problems, Psych Hospitalization(s), Suicide Attempt, Suicidal Ideation Endocrine/Metabolic History: Reports: Obesity/BMI 30+ - Infectious Disease History Infectious Disease History: Reports: Chicken Pox, Measles - Past Surgical History HEENT Surgical History: Reports: Adenoidectomy, Oral Surgery, Tonsillectomy Respiratory Surgical History: Reports: None GI Surgical History: Reports: Appendectomy, Bariatric Procedure, Cholecystectomy, Colonoscopy, EGD, Other (See Below) Other GI Surgeries/Procedures: gastric bypass Female Surgical History: Reports: Hysterectomy Neurological Surgical History: Reports: Spinal Fusion, Other (See Below) Other Neurological Surgeries/Procedures: hx back surgery x 7 Musculoskeletal Surgical History: Reports: Other (See Below) Other Musculoskeletal Surgeries/Procedures:: BACK SURGERY 7x Social & Family History - Family History Family Medical History: No Pertinent Family History - Caffeine Use Caffeine Use: Reports: None Other Caffeine Use: caffeine free - Living Situation & Occupation Living situation: Reports: Other (Lives with her .) ED ROS GENERAL - Review of Systems Review Of Systems: See Below Constitutional: Reports: No Symptoms HEENT: Reports: No Symptoms Respiratory: Reports: No Symptoms Cardiovascular: Reports: No Symptoms Endocrine: Reports: No Symptoms GI/Abdominal: Reports: No Symptoms : Reports: No Symptoms Musculoskeletal: Reports: No Symptoms Skin: Reports: No Symptoms Neurological: Reports: No Symptoms Psychiatric: Reports: No Symptoms ED EXAM, GENERAL - Physical Exam Exam: See Below Exam Limited By: No Limitations General Appearance: Alert, No Apparent Distress Eye Exam: Bilateral Eye: PERRL Ears: Normal External Exam Nose: Normal Inspection, Normal Mucosa Throat/Mouth: Normal Inspection, Normal Lips, Normal Teeth Head: Atraumatic, Normocephalic Neck: Normal Inspection, Supple, Non-Tender, Full Range of Motion Respiratory/Chest: No Respiratory Distress, Lungs Clear, Normal Breath Sounds Cardiovascular: Normal Peripheral Pulses, Regular Rate, Rhythm, No Edema, No Gallop GI/Abdominal: Normal Bowel Sounds, Soft, Non-Tender, No Organomegaly Back Exam: Normal Inspection, Full Range of Motion Extremities: Normal Inspection, Normal Range of Motion Neurological: Alert, Oriented, CN II-XII Intact, Normal Cognition Course - Vital Signs Text/Narrative:: Labs was discussed with patient. I told her all her labs are normal and her VS are stable and I don't have any good reason to keep her in the hospital. She immediately grabbed her cell phone and said I'm going to the [facility]. She said she is weak but she move so quickly and was walking on the hallway while calling her taxi. She also refused to take the discharge instructions. - Orders/Labs/Meds Labs: Laboratory Tests 10/18/20 10/18/20 Range/Units 12:50 12:50 WBC 10.3 (3.0-10.3) x10-3/uL RBC 4.80 (3.60-5.20) x10(6)uL Hgb 13.3 (11.4-15.5) g/dL Hct 40.7 (34.2-48.2) % MCV 84.8 (76.7-100.5) fL MCH 27.8 (23.9-33.9) pg MCHC 32.8 (31.9-34.8) g/dL RDW 14.8 (12.3-16.5) % Plt Count 327 (151-488) x10(3)uL MPV 7.6 (7.1-12.4) fL Neut % (Auto) 74.5 (30.8-76.2) % Lymph % (Auto) 18.6 (18.4-52.1) % [place] % (Auto) 5.9 (4.4-15.7) % Eos % (Auto) 0.1 L (0.6-8.1) % Baso % (Auto) 0.9 (0.2-1.5) % Neut # (Auto) 7.7 H (1.5-6.3) x10-3/uL Lymph # (Auto) 1.9 (1.0-4.4) x10-3/uL [place] # (Auto) 0.6 (0.3-1.0) x10-3/uL Eos # (Auto) 0.0 (0.0-0.8) x10-3/uL Baso # (Auto) 0.1 (0.0-0.1) x10-3/uL Sodium 143 (135-145) mmol/L Potassium 4.2 (3.5-5.3) mmol/L Chloride 107 (100-110) mmol/L Carbon Dioxide 26 (21-32) mmol/L BUN 10 (7-18) mg/dL Creatinine 0.8 (0.55-1.02) mg/dL Est Cr Clr Drug Dosing TNP Estimated GFR (MDRD) > 60 (>60) BUN/Creatinine Ratio 12.5 (9-20) Glucose 92 (80-116) mg/dL Calcium 8.8 (8.6-10.2) mg/dL Departure - Departure Time of Disposition: 13:20 Disposition: Eloped 07 Condition: Good Clinical Impression: Viral syndrome, Viral gastroenteritis - Discharge Information Instructions: Viral Gastroenteritis, Adult, [id number], Viral Respiratory Infection, [id number] Additional Instructions: Please read discharge instructions on Acute viral Gastroenteritis Increase oral fluids Zofran ODT 4 mg every 4 hours as needed for nausea Follo up as needed
[2020-10-18 13:38] VITALS: BP 141/71; PULSE 51
== END 2020-10-18 13:35 | disposition left against medical advice (07) ==
LOC: FB.ED 12:02
DX: A08.4 Viral intestinal infection, unspecified (principal); J45.909 Unspecified asthma, uncomplicated; F41.9 Anxiety disorder, unspecified; F32.9 Major depressive disorder, single episode, unspecified; I10 Essential (primary) hypertension; E66.9 Obesity, unspecified; Z88.6 Allergy status to analgesic agent; Z91.048 Other nonmedicinal substance allergy status; Z88.1 Allergy status to other antibiotic agents; Z88.8 Allergy status to other drugs, medicaments and biological substances; Z88.5 Allergy status to narcotic agent
CPT/HCPCS: 36415; 80048; 85025; 99283; 99284

== ENCOUNTER 2020-10-23 17:02 | Emergency (ER) | payer MEDICARE, MEDICAID ==
[2020-10-23 17:26] VITALS: BP 178/97; PULSE 74
[2020-10-23] MEDS ORDERED: Sodium Chloride 0.9% 10 ML Syringe FLUSH PRN (17:47)
[2020-10-23] MEDS ORDERED: Ondansetron 4 MG/2 ML SDV IVPUSH ONE ×2 (17:48→20:01)
[2020-10-23] MEDS ORDERED: Sodium Chloride 0.9% 1,000 ML IV SCH (18:00)
[2020-10-23] MEDS ORDERED: Potassium Chloride 20 MEQ Tab.ER PO ONE (18:24)
--- NOTE | 2020-10-23 20:11 | EDM.PDOC ---
ED HPI GENERAL MEDICAL PROBLEM - General Chief Complaint: General Stated Complaint: PAIN Time Seen by Provider: 10/23/20 17:10 Source of Information: Reports: Patient History Limitations: Reports: No Limitations - History of Present Illness INITIAL COMMENTS - FREE TEXT/NARRATIVE: Patient presented to the ED because of N/V/D, weakness. She was seen in our ED twice carmen week, 2 clinic visits and was just seen at [facility] in [place]. Extensive work up was done in both hospitals with just mild hypokalemia and dehydration. Covid test was negative. There is no cough/cold, fever or chills. She cries a lot whenever she is in the ED. Generalized Pain Score (Numeric/FACES): 10 - Related Data Allergies Allergy/AdvReac Type Severity Reaction Status Date / Time acetaminophen [From Tylox] Allergy Rash Verified 10/23/20 17:18 adhesive Allergy irritated Verified 10/23/20 17:18 skin ampicillin [From Unasyn] Allergy Itching Verified 10/23/20 17:18 ampicillin sodium Allergy Rash Verified 10/23/20 17:18 [From Unasyn] carisoprodol [From Soma] Allergy Confusion Verified 10/23/20 17:18 cephalexin [Cephalexin] Allergy Rash Verified 10/23/20 17:18 diclofenac [From Voltaren] Allergy Hives Verified 10/23/20 17:18 diphenhydramine Allergy Other Verified 10/23/20 17:18 [From Benadryl] omega-3 acid ethyl esters Allergy Rash Verified 10/23/20 17:18 oxycodone [From Tylox] Allergy Rash Verified 10/23/20 17:18 quetiapine [From Seroquel] Allergy Confusion Verified 10/23/20 17:18 sulbactam [From Unasyn] Allergy Itching Verified 10/23/20 17:18 sulbactam sodium Allergy Rash Verified 10/23/20 17:18 [From Unasyn] Home Meds: Home Meds Abaloparatide [Tymlos] 1.56 ml SQ DAILY 10/17/20 [History] LORazepam [Ativan] 0.5 mg QID 10/17/20 [History] Omeprazole 40 mg PO QAM PRN 10/17/20 [History] Diclofenac Sodium 75 mg PO BID #30 tablet. 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: hysterectomy, Musculoskeletal History: Reports: Arthritis, Back Pain, Chronic, Fracture, Osteoarthritis, Other (See Below) Other Musculoskeletal History: hx fx in back, hx brittle bones Neurological History: Reports: Migraines Psychiatric History: Reports: Anxiety, Depression, Emotional Problems, Psych Hospitalization(s), Suicide Attempt, Suicidal Ideation Endocrine/Metabolic History: Reports: Obesity/BMI 30+ - Infectious Disease History Infectious Disease History: Reports: Chicken Pox, Measles - Past Surgical History HEENT Surgical History: Reports: Adenoidectomy, Oral Surgery, Tonsillectomy Respiratory Surgical History: Reports: None GI Surgical History: Reports: Appendectomy, Bariatric Procedure, Cholecystectomy, Colonoscopy, EGD, Other (See Below) Other GI Surgeries/Procedures: gastric bypass Female Surgical History: Reports: Hysterectomy Neurological Surgical History: Reports: Spinal Fusion, Other (See Below) Other Neurological Surgeries/Procedures: hx back surgery x 7 Musculoskeletal Surgical History: Reports: Other (See Below) Other Musculoskeletal Surgeries/Procedures:: BACK SURGERY 7x Social & Family History - Family History Family Medical History: No Pertinent Family History - Tobacco Use Years of Tobacco use: 40 Used Tobacco, but Quit: Yes Month/Year Tobacco Last Used: Aug 2020 - Caffeine Use Caffeine Use: Reports: Energy Drinks, Tea Other Caffeine Use: caffeine free Caffeine Use Comment: unable to obtain - Recreational Drug Use Recreational Drug Use: No - Living Situation & Occupation Living situation: Reports: Other (Lives with her .) ED ROS GENERAL - Review of Systems Review Of Systems: See Below Constitutional: Reports: No Symptoms HEENT: Reports: No Symptoms Respiratory: Reports: No Symptoms Cardiovascular: Reports: No Symptoms Endocrine: Reports: No Symptoms GI/Abdominal: Reports: Diarrhea, Nausea, Vomiting : Reports: No Symptoms Musculoskeletal: Reports: No Symptoms ED EXAM, GENERAL - Physical Exam Exam: See Below Exam Limited By: No Limitations General Appearance: Alert, No Apparent Distress Ears: Normal External Exam Nose: Normal Inspection, Normal Mucosa Throat/Mouth: Normal Inspection, Normal Lips, Normal Teeth Head: Atraumatic, Normocephalic Neck: Normal Inspection, Supple, Non-Tender, Full Range of Motion Respiratory/Chest: No Respiratory Distress, Lungs Clear, Normal Breath Sounds Cardiovascular: Normal Peripheral Pulses, Regular Rate, Rhythm, No Edema GI/Abdominal: Normal Bowel Sounds, Soft, Non-Tender, No Organomegaly Back Exam: Normal Inspection, Full Range of Motion Extremities: Normal Inspection, Normal Range of Motion, Non-Tender Course - Vital Signs Text/Narrative:: Labs reviewed with patient EKG-NSR Trop-neg K+=3.1 Klor con 40 meq po x1 zofran 4 mg IV NS 1 L bolus Last Recorded V/S: Last Vital Signs Temp 37.1 C 10/23/20 17:02 Pulse 74 10/23/20 17:02 Resp 18 10/23/20 17:02 BP 178/97 H 10/23/20 17:02 Pulse Ox 98 10/23/20 17:02 - Orders/Labs/Meds Orders: Active Orders 24 hr Category Date Time Status Saline Lock Insert [OM.PC] Routine Oth 10/23/20 17:47 Ordered EKG 12 Lead [EK] Routine Ther 10/23/20 17:53 Ordered Labs: Laboratory Tests 10/23/20 10/23/20 10/23/20 Range/Units 17:05 17:05 17:05 WBC 10.2 (3.0-10.3) x10-3/uL RBC 4.79 (3.60-5.20) x10(6)uL Hgb 14.2 (11.4-15.5) g/dL Hct 43.5 (34.2-48.2) % MCV 90.8 (76.7-100.5) fL MCH 29.7 (23.9-33.9) pg MCHC 32.7 (31.9-34.8) g/dL RDW 12.9 (12.3-16.5) % Plt Count 284 (151-488) x10(3)uL MPV 9.6 (7.1-12.4) fL Neut % (Auto) 75.5 (30.8-76.2) % Lymph % (Auto) 16.6 L (18.4-52.1) % Murray % (Auto) 6.8 (4.4-15.7) % Eos % (Auto) 0.6 (0.6-8.1) % Baso % (Auto) 0.5 (0.2-1.5) % Neut # (Auto) 7.7 H (1.5-6.3) x10-3/uL Lymph # (Auto) 1.7 (1.0-4.4) x10-3/uL Murray # (Auto) 0.7 (0.3-1.0) x10-3/uL Eos # (Auto) 0.1 (0.0-0.8) x10-3/uL Baso # (Auto) 0.0 (0.0-0.1) x10-3/uL Sodium 142 (135-145) mmol/L Potassium 3.0 L D (3.5-5.3) mmol/L Chloride 107 (100-110) mmol/L Carbon Dioxide 27 (21-32) mmol/L BUN 12 (7-18) mg/dL Creatinine 0.7 (0.55-1.02) mg/dL Est Cr Clr Drug Dosing 78.03 mL/min Estimated GFR (MDRD) > 60 (>60) BUN/Creatinine Ratio 17.1 (9-20) Glucose 100 (80-116) mg/dL Calcium 8.3 L (8.6-10.2) mg/dL Troponin I 16.9 (4.0-60.3) pg/mL Meds: Medications Discontinued Medications Generic Name Dose Route Start Last Admin Trade Name Freq PRN Reason Stop Dose Admin Sodium Chloride 1,000 mls @ 999 mls/hr 10/23/20 18:00 10/23/20 18:17 Normal Saline IV 999 mls/hr ASDIRECTED SHIRIN Administration Mirtazapine 30 mg 10/23/20 21:00 10/23/20 20:37 Remeron PO 30 mg BEDTIME SHIRIN Administration Ondansetron HCl 4 mg 10/23/20 17:48 10/23/20 18:20 Zofran IVPUSH 10/23/20 17:49 4 mg ONETIME ONE Administration Ondansetron HCl 4 mg 10/23/20 20:01 10/23/20 20:37 Zofran IVPUSH 10/23/20 20:02 4 mg ONETIME ONE Administration Potassium Chloride 40 meq 10/23/20 18:24 10/23/20 18:38 Klor-Con M20 PO 10/23/20 18:25 40 meq ONETIME ONE Administration Sodium Chloride 10 ml 10/23/20 17:47 Saline Flush FLUSH ASDIRECTED PRN Keep Vein Open Departure - Departure Time of Disposition: 20:10 Disposition: Home, Self-Care 01 Condition: Good Clinical Impression: Dehydration, Hypokalemia - Discharge Information Prescriptions: Potassium Chloride [Klor-Con M20] 20 meq PO TID #12 tab.er Mirtazapine 30 mg PO BEDTIME #30 tablet Ondansetron [Zofran ODT] 4 mg PO Q4H PRN #7 tab.dis PRN Reason: Nausea Instructions: Hypokalemia, Dehydration, Adult, [id number] Referrals: PCP,None [Primary Care Provider] - Forms: ED Department Discharge Additional Instructions: Please read discharge instructions on dehydration, hypokalemia(low potassium) Increase oral fluids Zofran ODT 4 mg every 4 hours as needed for nausea Omeprazole 20 mg daily for your gastritis Mirtazapine 30 mg at bedtime-this medicine helps with anxiety, depression, and it also increase your appetite Klor con, take 2 tablets 3 times daily for your low potassium Follow up with your doctor in a week Sepsis Event Note (ED) - Evaluation Sepsis Screening Result: No Definite Risk - My Orders Last 24 Hours: My Active Orders 10/23/20 17:47 Saline Lock Insert [OM.PC] Routine 10/23/20 17:53 EKG 12 Lead [EK] Routine - Assessment/Plan Last 24 Hours: My Active Orders 10/23/20 17:47 Saline Lock Insert [OM.PC] Routine 10/23/20 17:53 EKG 12 Lead [EK] Routine
[2020-10-23] MEDS ORDERED: Mirtazapine 30 MG Tab PO SCH (21:00)
== END 2020-10-23 20:45 | disposition home or self-care (01) ==
LOC: FB.ED 17:02
DX: E86.0 Dehydration (principal); E87.6 Hypokalemia; I10 Essential (primary) hypertension; E66.9 Obesity, unspecified; F41.9 Anxiety disorder, unspecified; F32.9 Major depressive disorder, single episode, unspecified; J45.909 Unspecified asthma, uncomplicated; Z88.6 Allergy status to analgesic agent; Z88.1 Allergy status to other antibiotic agents; Z88.8 Allergy status to other drugs, medicaments and biological substances; Z88.5 Allergy status to narcotic agent; Z79.899 Other long term (current) drug therapy; Z90.49 Acquired absence of other specified parts of digestive tract; Z90.710 Acquired absence of both cervix and uterus; Z68.1 Body mass index [BMI] 19.9 or less, adult
CPT/HCPCS: 36415; 80048; 84484; 85025; 93005; 96374; 96376; 99284; A9270; J2405; J7030

== ENCOUNTER 2020-11-28 10:10 | Emergency (ER) | payer MEDICARE, MEDICAID ==
[2020-11-28] MEDS ORDERED: Sodium Chloride 0.9% 10 ML Syringe FLUSH PRN (10:40)
[2020-11-28] MEDS ORDERED: Ketorolac 30 MG/ML SDV IVPUSH ONE (10:42)
[2020-11-28] MEDS ORDERED: Ondansetron 4 MG/2 ML SDV IVPUSH ONE (10:42)
[2020-11-28] MEDS ORDERED: Morphine 4 MG/ML VIAL IVPUSH ONE (10:42)
[2020-11-28] MEDS ORDERED: Sodium Chloride 0.9% 1,000 ML IV SCH (10:45)
[2020-11-28] MEDS ORDERED: Iopamidol 755 Mg/ML 100 ML Bottle IV ONE (10:54)
[2020-11-28 12:31] VITALS: BP 157/71; PULSE 61
--- NOTE | 2020-11-28 12:38 | CT ---
INDICATION: Left and right lower quadrant pain - patient unable to lay on back. CT ABDOMEN AND PELVIS WITH CONTRAST: Spiral 3.75 mm axial sections were obtained through the abdomen and pelvis with 100 mL Isovue-370 at 1.5 mL per second with sagittal and coronal reconstructions in the right lateral decubitus position, 11/28/20 and compared with 08/26/20. Total exam DLP was 482.51 mGy-cm. The heart appears mildly enlarged and may be slightly increased in size compared with the previous study. A definite active infiltrate or effusion was not identified in the lower lung real and pleural spaces visualized. Hard beam artifact off a fusion at the T10 through L2 level with rods and pedicle screws producing the hard beam artifact. Hard beam artifact is also noted off multiple intervertebral disk spacers throughout the lumbosacral spine. Compression fractures are noted at T12 and L2 as previously. The uterus is absent compatible with history of its removal. The appendix is absent compatible with history of its removal. The gallbladder is absent compatible with history of its removal. Evidence of gastric bypass surgery is noted. There is mild prominence of the common bile duct and the pancreatic duct which may be on the basis of post cholecystectomy change. The pancreas is somewhat diminutive with no definite focal mass. The spleen was unremarkable. The adrenal glands and kidneys appear to be fairly normal. Fluid-filled loops of jejunum are again noted which may be related to fluid intake, they remain somewhat prominent, may also be on the basis of patient's previous surgeries for gastric bypass. In the pelvis, there appears to be some thickening of the wall of the sigmoid colon and the rectosigmoid and rectum as well with fluid in the sigmoid loop. This may all be on the basis of a process such as colitis, but should be correlated clinically. Depending upon recent colonoscopy, direct visualization with endoscopy may be helpful. Urinary bladder wall is not well evaluated due to relatively minimal distention of the urinary bladder, but does appear to be somewhat prominent and could be on the basis of cystitis. No additional organomegaly, mass lesions, or free fluid collections were identified in the abdomen or pelvis. Degenerative changes are noted at the hip joints, mild on the left, moderate on the right. Mild degenerative hypertrophic changes are noted at the sacroiliac joints. No definite hernia was identified. IMPRESSION: 1. Possible cardiomegaly. 2. Multiple surgeries including cholecystectomy, appendectomy, gastric bypass, spinal fusion, and lumbar disk interventions. 3. Thickening of the wall of the sigmoid colon and rectum with fluid present in the sigmoid, process such as colitis could be present - correlate clinically. 4. Fluid-filled loops of jejunum are again noted with mild dilatation which may be related to the patient's gastric bypass surgery. 5. ASD with aortoiliac artery calcifications. 6. Degenerative changes at sacroiliac joints and hip joints. MTDD
--- NOTE | 2020-11-28 13:04 | EDM.PDOC ---
ED HPI GENERAL MEDICAL PROBLEM - General Chief Complaint: Back Pain or Injury Stated Complaint: BACK PAIN Time Seen by Provider: 11/28/20 10:15 Source of Information: Reports: Patient History Limitations: Reports: No Limitations - History of Present Illness INITIAL COMMENTS - FREE TEXT/NARRATIVE: Patient presented to the ED because of increasing low back pain for 2 days. She has a history of DDD with spinal fusion(2011) and laminectomy(1987,1991). Her pain is 10/10 but is not taking any pain medication. She had a CT lumbar spine done at [facility] this month which apparently showed worsening of her DDD. She is scheduled to have another lumbar surgery at the [facility]/clinic sometime this year. She also c/o having watery diarrhea and nausea but no vomiting, LLQ and RLQ pain. There is no fever/chills. back Pain Score (Numeric/FACES): 6 - Related Data Allergies Allergy/AdvReac Type Severity Reaction Status Date / Time acetaminophen [From Tylox] Allergy Rash Verified 11/28/20 10:24 adhesive Allergy irritated Verified 11/28/20 10:24 skin ampicillin [From Unasyn] Allergy Itching Verified 11/28/20 10:24 ampicillin sodium Allergy Rash Verified 11/28/20 10:24 [From Unasyn] carisoprodol [From Soma] Allergy Confusion Verified 11/28/20 10:24 cephalexin [Cephalexin] Allergy Rash Verified 11/28/20 10:24 diclofenac [From Voltaren] Allergy Hives Verified 11/28/20 10:24 diphenhydramine Allergy Other Verified 11/28/20 10:24 [From Benadryl] omega-3 acid ethyl esters Allergy Rash Verified 11/28/20 10:24 oxycodone [From Tylox] Allergy Rash Verified 11/28/20 10:24 quetiapine [From Seroquel] Allergy Confusion Verified 11/28/20 10:24 sulbactam [From Unasyn] Allergy Itching Verified 11/28/20 10:24 sulbactam sodium Allergy Rash Verified 11/28/20 10:24 [From Unasyn] Home Meds: Home Meds Abaloparatide [Tymlos] 1.56 ml SQ DAILY 10/17/20 [History] LORazepam [Ativan] 0.5 mg QID 10/17/20 [History] Omeprazole 40 mg PO QAM PRN 10/17/20 [History] Diclofenac Sodium 75 mg PO BID #30 tablet. 10/18/20 [Rx] Mirtazapine 30 mg PO BEDTIME #30 tablet 10/23/20 [Rx] Ondansetron [Zofran ODT] 4 mg PO Q4H PRN #7 tab.dis 10/23/20 [Rx] Potassium Chloride [Klor-Con M20] 20 meq PO TID #12 tab.er 10/23/20 [Rx] Sucralfate [Carafate] 1 gm QID 10/23/20 [History] Acetaminophen/oxyCODONE [Percocet 325-5 MG] 1 each PO Q4H PRN #15 tab 11/28/20 [Rx] Ondansetron [Zofran ODT] 4 mg PO Q4H PRN #7 tab.dis 11/28/20 [Rx] Past Medical History HEENT History: Reports: Impaired Vision Other HEENT History: glasses Cardiovascular History: Reports: High Cholesterol, Hypertension Respiratory History: Reports: Asthma, SOB Gastrointestinal History: Reports: Fecal Incontinence, Gastritis, Irritable Bowel Syndrome, PUD Genitourinary History: Reports: Urinary Incontinence TESTER COMPRESSED GASES History: Reports: 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, Other TESTER COMPRESSED GASES History: hysterectomy, Musculoskeletal History: Reports: Arthritis, Back Pain, Chronic, Fracture, Osteoarthritis, Other (See Below) Other Musculoskeletal History: hx fx in back, hx brittle bones, to have back reconstruction in [facility] at [facility] per Trina Fernandez Neurological History: Reports: Migraines Psychiatric History: Reports: Anxiety, Depression, Emotional Problems, Psych Hospitalization(s), Suicide Attempt, Suicidal Ideation Endocrine/Metabolic History: Reports: Obesity/BMI 30+ - Infectious Disease History Infectious Disease History: Reports: Chicken Pox, Measles - Past Surgical History HEENT Surgical History: Reports: Adenoidectomy, Oral Surgery, Tonsillectomy Cardiovascular Surgical History: Reports: None Respiratory Surgical History: Reports: None GI Surgical History: Reports: Appendectomy, Bariatric Procedure, Cholecystectomy, Colonoscopy, EGD, Other (See Below) Other GI Surgeries/Procedures: gastric bypass Female Surgical History: Reports: Hysterectomy Endocrine Surgical History: Reports: None Neurological Surgical History: Reports: Spinal Fusion, Other (See Below) Other Neurological Surgeries/Procedures: hx back surgery x 7 Musculoskeletal Surgical History: Reports: Other (See Below) Other Musculoskeletal Surgeries/Procedures:: BACK SURGERY 7x Social & Family History - Family History Family Medical History: No Pertinent Family History - Tobacco Use Tobacco Use Status *Q: Former Tobacco User Used Tobacco, but Quit: Yes Month/Year Tobacco Last Used: Tobacco Use Comment: quit smoking to have back surgery at [facility]. - Caffeine Use Caffeine Use: Reports: Coffee Other Caffeine Use: caffeine free Caffeine Use Comment: unable to obtain - Recreational Drug Use Recreational Drug Use: No - Living Situation & Occupation Living situation: Reports: Other (Lives with her .) ED ROS GENERAL - Review of Systems Review Of Systems: See Below Constitutional: Reports: No Symptoms HEENT: Reports: No Symptoms Respiratory: Reports: No Symptoms Cardiovascular: Reports: No Symptoms Endocrine: Reports: No Symptoms GI/Abdominal: Reports: Abdominal Pain, Diarrhea, Nausea : Reports: No Symptoms Musculoskeletal: Reports: No Symptoms Skin: Reports: No Symptoms Neurological: Reports: No Symptoms Psychiatric: Reports: No Symptoms ED EXAM,LOWER BACK PAIN/INJURY - Physical Exam Exam: See Below Exam Limited By: No Limitations General Appearance: Alert, No Apparent Distress Ears: Normal External Exam, Normal Canal Nose: Normal Inspection, Normal Mucosa Throat/Mouth: Normal Inspection Head: Atraumatic, Normocephalic Neck: Normal Inspection, Supple, Non-Tender, Full Range of Motion Respiratory/Chest: No Respiratory Distress, Lungs Clear, Normal Breath Sounds, No Accessory Muscle Use Cardiovascular: Normal Peripheral Pulses, Regular Rate, Rhythm, No Edema, No Gallop, No JVD GI/Abdominal: Normal Bowel Sounds, Soft, Other (tenderness LLQ and RLQ) Back Exam: Muscle Spasm Neurological: Alert, Normal Dorsiflexion, CN II-XII Intact Course - Vital Signs Text/Narrative:: Labs/[id number] result was discussed with patient NS 1 L bolus Zofran 4 mg IV toradol 30 mg IV x1 Morphine 4 mg IV x1 Last Recorded V/S: Last Vital Signs Temp 36.7 C 11/28/20 12:00 Pulse 61 11/28/20 12:00 Resp 20 11/28/20 12:00 BP 157/71 H 11/28/20 12:00 Pulse Ox 94 L 11/28/20 12:00 - Orders/Labs/Meds Orders: Active Orders 24 hr Category Date Time Status Sodium Chloride 0.9% [Normal Saline] 1,000 ml Med 11/28/20 10:45 Active IV ASDIRECTED Sodium Chloride 0.9% [Saline Flush] Med 11/28/20 10:40 Active 10 ml FLUSH ASDIRECTED PRN Saline Lock Insert [OM.PC] Routine Oth 11/28/20 10:40 Ordered Medication Orders Sodium Chloride (Normal Saline) 1,000 mls @ 999 mls/hr IV ASDIRECTED SHIRIN Last Admin: 11/28/20 10:45 Dose: 999 mls/hr Documented by: SHEYLA Sodium Chloride (Saline Flush) 10 ml FLUSH ASDIRECTED PRN PRN Reason: Keep Vein Open Last Admin: 11/28/20 10:44 Dose: 10 ml Documented by: SHEYLA Labs: Laboratory Tests 11/28/20 11/28/20 11/28/20 Range/Units 10:50 10:50 10:50 WBC 9.5 (3.0-10.3) x10-3/uL RBC 5.24 H (3.60-5.20) x10(6)uL Hgb 14.7 (11.4-15.5) g/dL Hct 45.1 (34.2-48.2) % MCV 86.1 (76.7-100.5) fL MCH 28.0 (23.9-33.9) pg MCHC 32.5 (31.9-34.8) g/dL RDW 14.8 (12.3-16.5) % Plt Count 379 (151-488) x10(3)uL MPV 7.1 (7.1-12.4) fL Neut % (Auto) 73.6 (30.8-76.2) % Lymph % (Auto) 21.3 (18.4-52.1) % [place] % (Auto) 4.5 (4.4-15.7) % Eos % (Auto) 0.2 L (0.6-8.1) % Baso % (Auto) 0.4 (0.2-1.5) % Neut # (Auto) 7.0 H (1.5-6.3) x10-3/uL Lymph # (Auto) 2.0 (1.0-4.4) x10-3/uL [place] # (Auto) 0.4 (0.3-1.0) x10-3/uL Eos # (Auto) 0.0 (0.0-0.8) x10-3/uL Baso # (Auto) 0.0 (0.0-0.1) x10-3/uL Sodium 139 (135-145) mmol/L Potassium 3.6 (3.5-5.3) mmol/L Chloride 104 (100-110) mmol/L Carbon Dioxide 26 (21-32) mmol/L BUN 8 (7-18) mg/dL Creatinine 0.7 (0.55-1.02) mg/dL Est Cr Clr Drug Dosing 84.53 mL/min Estimated GFR (MDRD) > 60 (>60) BUN/Creatinine Ratio 11.4 (9-20) Glucose 102 (80-116) mg/dL Calcium 8.5 L (8.6-10.2) mg/dL Total Bilirubin 0.4 (0.1-1.3) mg/dL AST 26 H D (5-25) IU/L ALT 50 H D (12-36) U/L Alkaline Phosphatase 241 H (56-112) IU/L Total Protein 7.0 (6.0-8.0) g/dL Albumin 3.6 (3.5-5.2) g/dL Globulin 3.4 g/dL Albumin/Globulin Ratio 1.1 Amylase 45 (25-115) U/L Lipase 37 L (73-393) U/L Urine Color (YELLOW) Urine Appearance (CLEAR) Urine pH (5.0-6.5) Ur Specific [place] (1.010-1.025) Urine Protein (NEGATIVE) mg/dL Urine Glucose (UA) (NORMAL) mg/dL Urine Ketones (NEGATIVE) mg/dL Urine Occult Blood (NEGATIVE) Urine Nitrite (NEGATIVE) Urine Bilirubin (NEGATIVE) Urine Urobilinogen (NEGATIVE) mg/dL Ur Leukocyte Esterase (NEGATIVE) Urine RBC (0-5) Urine WBC (0-5) Ur Squamous Epith Cells (NS,R,O) Urine Bacteria (NS) Urine Mucus (NS) 11/28/20 Range/Units 11:30 WBC (3.0-10.3) x10-3/uL RBC (3.60-5.20) x10(6)uL Hgb (11.4-15.5) g/dL Hct (34.2-48.2) % MCV (76.7-100.5) fL MCH (23.9-33.9) pg MCHC (31.9-34.8) g/dL RDW (12.3-16.5) % Plt Count (151-488) x10(3)uL MPV (7.1-12.4) fL Neut % (Auto) (30.8-76.2) % Lymph % (Auto) (18.4-52.1) % [place] % (Auto) (4.4-15.7) % Eos % (Auto) (0.6-8.1) % Baso % (Auto) (0.2-1.5) % Neut # (Auto) (1.5-6.3) x10-3/uL Lymph # (Auto) (1.0-4.4) x10-3/uL [place] # (Auto) (0.3-1.0) x10-3/uL Eos # (Auto) (0.0-0.8) x10-3/uL Baso # (Auto) (0.0-0.1) x10-3/uL Sodium (135-145) mmol/L Potassium (3.5-5.3) mmol/L Chloride (100-110) mmol/L Carbon Dioxide (21-32) mmol/L BUN (7-18) mg/dL Creatinine (0.55-1.02) mg/dL Est Cr Clr Drug Dosing mL/min Estimated GFR (MDRD) (>60) BUN/Creatinine Ratio (9-20) Glucose (80-116) mg/dL Calcium (8.6-10.2) mg/dL Total Bilirubin (0.1-1.3) mg/dL AST (5-25) IU/L ALT (12-36) U/L Alkaline Phosphatase (56-112) IU/L Total Protein (6.0-8.0) g/dL Albumin (3.5-5.2) g/dL Globulin g/dL Albumin/Globulin Ratio Amylase (25-115) U/L Lipase (73-393) U/L Urine Color Yellow (YELLOW) Urine Appearance Clear (CLEAR) Urine pH 7.0 H (5.0-6.5) Ur Specific [place] 1.010 (1.010-1.025) Urine Protein Negative (NEGATIVE) mg/dL Urine Glucose (UA) Normal (NORMAL) mg/dL Urine Ketones Negative (NEGATIVE) mg/dL Urine Occult Blood Moderate H (NEGATIVE) Urine Nitrite Negative (NEGATIVE) Urine Bilirubin Negative (NEGATIVE) Urine Urobilinogen Normal (NEGATIVE) mg/dL Ur Leukocyte Esterase Negative (NEGATIVE) Urine RBC 20-30 H (0-5) Urine WBC 0-5 (0-5) Ur Squamous Epith Cells Moderate H (NS,R,O) Urine Bacteria Few H (NS) Urine Mucus Moderate H (NS) Meds: Medications Generic Name Dose Route Start Last Admin Trade Name Freq PRN Reason Stop Dose Admin Sodium Chloride 1,000 mls @ 999 mls/hr 11/28/20 10:45 11/28/20 10:45 Normal Saline IV 999 mls/hr ASDIRECTED SHIRIN Administration Sodium Chloride 10 ml 11/28/20 10:40 11/28/20 10:44 Saline Flush FLUSH 10 ml ASDIRECTED PRN Administration Keep Vein Open Discontinued Medications Generic Name Dose Route Start Last Admin Trade Name Freq PRN Reason Stop Dose Admin Iopamidol 100 ml 11/28/20 10:54 11/28/20 11:36 Isovue-370 (76%) IV 11/28/20 10:55 100 ml . DIRECTED ONE Administration Ketorolac Tromethamine 30 mg 11/28/20 10:42 11/28/20 10:52 Toradol IVPUSH 11/28/20 10:43 30 mg ONETIME ONE Administration Morphine Sulfate 4 mg 11/28/20 10:42 11/28/20 10:48 Morphine IVPUSH 11/28/20 10:43 4 mg ONETIME ONE Administration Ondansetron HCl 4 mg 11/28/20 10:42 11/28/20 10:45 Zofran IVPUSH 11/28/20 10:43 4 mg ONETIME ONE Administration Departure - Departure Time of Disposition: 13:30 Disposition: Home, Self-Care 01 Condition: Good Clinical Impression: Chronic low back pain, Gastroenteritis - Discharge Information Prescriptions: Acetaminophen/oxyCODONE [Percocet 325-5 MG] 1 each PO Q4H PRN #15 tab PRN Reason: Pain Ondansetron [Zofran ODT] 4 mg PO Q4H PRN #7 tab.dis PRN Reason: Nausea Instructions: Viral Gastroenteritis, Adult, Chronic Back Pain, [id number] Referrals: PCP,None [Primary Care Provider] - Forms: ED Department Discharge Additional Instructions: Please read discharge instructions on Chronic low back pain and viral gastr oenteritis Frequent hand washing Increase oral fluids Take imodium 2 tablets every 6 hours as needed for diarrhea Zofran ODT 4 mg every 4 hours as needed for nausea Percocet 5/325, 1-2 tablets every 4-6 hors as needed for pain Folloe up as needed Sepsis Event Note (ED) - Evaluation Sepsis Screening Result: No Definite Risk - Focused Exam Vital Signs: Vital Signs Temp Pulse Resp BP Pulse Ox 11/28/20 12:00 36.7 C 61 20 157/71 H 94 L 11/28/20 10:10 37.1 C 70 20 161/75 H 99 - My Orders Last 24 Hours: My Active Orders 11/28/20 10:40 Sodium Chloride 0.9% [Saline Flush] 10 ml FLUSH ASDIRECTED PRN Saline Lock Insert [OM.PC] Routine 11/28/20 10:45 Sodium Chloride 0.9% [Normal Saline] 1,000 ml IV ASDIRECTED - Assessment/Plan Last 24 Hours: My Active Orders 11/28/20 10:40 Sodium Chloride 0.9% [Saline Flush] 10 ml FLUSH ASDIRECTED PRN Saline Lock Insert [OM.PC] Routine 11/28/20 10:45 Sodium Chloride 0.9% [Normal Saline] 1,000 ml IV ASDIRECTED
== END 2020-11-28 14:00 | disposition home or self-care (01) ==
LOC: FB.ED 10:10
DX: M54.5 Low back pain (principal); K52.9 Noninfective gastroenteritis and colitis, unspecified; I10 Essential (primary) hypertension; J45.909 Unspecified asthma, uncomplicated; E66.9 Obesity, unspecified; Z88.1 Allergy status to other antibiotic agents; Z88.8 Allergy status to other drugs, medicaments and biological substances; Z88.5 Allergy status to narcotic agent; Z79.899 Other long term (current) drug therapy; Z87.891 Personal history of nicotine dependence; Z68.20 Body mass index [BMI] 20.0-20.9, adult
CPT/HCPCS: 74177; 80053; 81001; 82150; 83690; 85025; 96374; 96375; 99284-25; J1885; J2270; J2405; J7030; Q9967

== ENCOUNTER 2021-05-06 10:41 | Emergency (ER) | payer MEDICARE, MEDICAID ==
--- NOTE | 2021-05-06 10:56 | EDM.PDOC ---
ED HPI GENERAL MEDICAL PROBLEM - General Stated Complaint: BACK PAIN Time Seen by Provider: 05/06/21 10:48 Source of Information: Reports: Patient History Limitations: Reports: No Limitations - History of Present Illness INITIAL COMMENTS - FREE TEXT/NARRATIVE: 56-year-old female who presents to the emergency department via ambulance complaining of severe, ongoing back pain for the past 4 months. She reports that she has pain all up and down her back with the most pain being between her shoulder blades. She also reports that she has muscle spasm and tightness in this area and reports that this pain has been present since her last back surgery which was in December 2020. Her pain is a 10/10 at this point and she has had nausea but no vomiting. He states that she has been sweating with the pain and she finds it difficult even to get around her house or go to the bathroom. She feels that the pain is worse today and that caused her to call the ambulance to bring her to the emergency department for evaluation. She has had no measured fever. She has felt cold. She has had no dysuria or hematuria. The EMS staff report that there were empty pill bottles "all over her house". She denies any injury. She reports that she has been eating and drinking per her norm. She has had no bowel or bladder control problems. There are no other associated signs or symptoms. There are no other modifying factors. It should be noted that I did call and discuss patient with BRYSON Saul who is the patient's primary provider and she reports that she has not seen the patient for at least 3 months and has only given the patient prescription for Klonopin and has not provided her with any narcotic type pain medications Onset: Other (Ongoing for the past 4 months and feels that it is worse today.) Duration: Getting Worse Location: Reports: Back Quality: Reports: Ache, Sharp, Throbbing Severity: Severe Improves with: Reports: None Worsens with: Reports: Other (Palpation), Movement Context: Reports: Other (As above.) Associated Symptoms: Reports: No Other Symptoms (Except as above.) Treatments APPEALS NURSE: Reports: Other (see below) (Nothing.) Back Pain Score (Numeric/FACES): 10 - Related Data Allergies Allergy/AdvReac Type Severity Reaction Status Date / Time adhesive Allergy irritated Verified 11/28/20 10:24 skin ampicillin [From Unasyn] Allergy Itching Verified 11/28/20 10:24 carisoprodol [From Soma] Allergy Confusion Verified 11/28/20 10:24 cephalexin [Cephalexin] Allergy Rash Verified 11/28/20 10:24 diclofenac [From Voltaren] Allergy Hives Verified 11/28/20 10:24 diphenhydramine Allergy Itching, Verified 05/07/21 00:22 [From Benadryl] Keeps her awake omega-3 acid ethyl esters Allergy Rash Verified 11/28/20 10:24 quetiapine [From Seroquel] Allergy Confusion Verified 11/28/20 10:24 sulbactam [From Unasyn] Allergy Itching Verified 11/28/20 10:24 Home Meds: Home Meds Abaloparatide [Tymlos] 1.56 ml SQ DAILY 10/17/20 [History] LORazepam [Ativan] 0.5 mg QID 10/17/20 [History] Omeprazole 40 mg PO QAM PRN 10/17/20 [History] Diclofenac Sodium 75 mg PO BID #30 tablet.dr 10/18/20 [Rx] Mirtazapine 30 mg PO BEDTIME #30 tablet 10/23/20 [Rx] Ondansetron [Zofran ODT] 4 mg PO Q4H PRN #7 tab.dis 10/23/20 [Rx] Potassium Chloride [Klor-Con M20] 20 meq PO TID #12 tab.er 10/23/20 [Rx] Sucralfate [Carafate] 1 gm QID 10/23/20 [History] Acetaminophen/oxyCODONE [Percocet 325-5 MG] 1 each PO Q4H PRN #15 tab 11/28/20 [Rx] Ondansetron [Zofran ODT] 4 mg PO Q4H PRN #7 tab.dis 11/28/20 [Rx] Past Medical History HEENT History: Reports: Impaired Vision Other HEENT History: glasses Cardiovascular History: Reports: High Cholesterol, Hypertension Respiratory History: Reports: Asthma, SOB Gastrointestinal History: Reports: Fecal Incontinence, Gastritis, Irritable Bowel Syndrome, PUD Genitourinary History: Reports: Urinary Incontinence ADVANCED MANAGER History: Reports: 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 Other ADVANCED MANAGER History: hysterectomy, Musculoskeletal History: Reports: Arthritis, Back Pain, Chronic, Fracture, Osteoarthritis, Other (See Below) Other Musculoskeletal History: hx fx in back, hx brittle bones, to have back reconstruction in [place] soon at [facility] per Trina Fernandez Neurological History: Reports: Migraines Psychiatric History: Reports: Anxiety, Depression, Emotional Problems, Psych Hospitalization(s), Suicide Attempt, Suicidal Ideation Endocrine/Metabolic History: Reports: Obesity/BMI 30+ - Infectious Disease History Infectious Disease History: Reports: Chicken Pox, Measles - Past Surgical History HEENT Surgical History: Reports: Adenoidectomy, Oral Surgery, Tonsillectomy GI Surgical History: Reports: Appendectomy, Bariatric Procedure, Cholecystectomy, Colonoscopy, EGD, Other (See Below) Other GI Surgeries/Procedures: gastric bypass Female Surgical History: Reports: Hysterectomy Neurological Surgical History: Reports: Spinal Fusion, Other (See Below) Other Neurological Surgeries/Procedures: hx back surgery x 7 Musculoskeletal Surgical History: Reports: Other (See Below) Other Musculoskeletal Surgeries/Procedures:: BACK SURGERY 7x Social & Family History - Tobacco Use Tobacco Use Status *Q: Current Every Day Tobacco User - Caffeine Use Caffeine Use: Reports: Coffee Other Caffeine Use: caffeine free Caffeine Use Comment: unable to obtain - Alcohol Use Alcohol Use History: No - Recreational Drug Use Recreational Drug Use: No Recreational Drug Use Comment: Patient denies any illicit drug use. - Living Situation & Occupation Living situation: Reports: , Other (Lives with her .) Occupation: Disabled ED ROS GENERAL - Review of Systems Review Of Systems: See Below Constitutional: Reports: Chills, Malaise, Fatigue. Denies: Fever HEENT: Denies: Throat Pain, Throat Swelling, Vision Change Respiratory: Denies: Shortness of Breath, Cough Cardiovascular: Denies: Chest Pain, Palpitations Endocrine: Reports: Fatigue GI/Abdominal: Reports: Nausea. Denies: Abdominal Pain, Diarrhea, Vomiting : Denies: Dysuria, Flank Pain, Frequency Musculoskeletal: Reports: Back Pain. Denies: Neck Pain Skin: Denies: Diaphoresis, Rash Neurological: Denies: Confusion, Dizziness Psychiatric: Reports: Anxiety, Other (Initially patient denied any suicidal ideation but later on reported suicidal ideation and "wanting to ") Hematologic/Lymphatic: Denies: Easy Bleeding, Easy Bruising ED EXAM,LOWER BACK PAIN/INJURY - Physical Exam Exam: See Below Exam Limited By: No Limitations General Appearance: Alert, Moderate Distress (Appears in some pain and is tearful but times becomes able to converse normally.), Thin Eye Exam: Bilateral Eye: EOMI, Normal Inspection, PERRL Ears: Normal External Exam, Hearing Grossly Normal Nose: Normal Inspection, Normal Mucosa, No Blood Throat/Mouth: Normal Inspection, Normal Oropharynx, Normal Voice, No Airway Compromise Head: Atraumatic, Normocephalic Neck: Normal Inspection, Supple, Non-Tender, Full Range of Motion Respiratory/Chest: No Respiratory Distress, Lungs Clear, Normal Breath Sounds, No Accessory Muscle Use, Chest Non-Tender Cardiovascular: Normal Peripheral Pulses, Regular Rate, Rhythm, No Murmur GI/Abdominal: Normal Bowel Sounds, Soft, Non-Tender, No Mass Back Exam: Muscle Spasm, Paraspinal Tenderness (Diffusely tender), Vertebral Tenderness, Other (No edema. No erythema.) Extremities: Normal Inspection, Normal Range of Motion, Non-Tender, No Pedal Edema, Normal Capillary Refill Neurological: Alert, Normal Dorsiflexion, CN II-XII Intact, Normal Plantar Flexion, No Motor/Sensory Deficits, Oriented x 3 Psychiatric: Depressed Mood, Tearful Skin Exam: Warm, Dry, Intact, Normal Color, No Rash #1 Interpretation EKG Date: 05/06/21 Time: 14:25 Rhythm: NSR Rate (Beats/Min): 67 [place]: Normal P-Wave: Present QRS: Normal ST-T: Normal QT: Normal Comparison: Change From Previous EKG (Compared to an EKG performed on 10/23/2020, previous inferior and anterolateral T-wave abnormalities have resolved. This EKG is now a normal EKG.) Course - Vital Signs Last Recorded V/S: Last Vital Signs Temp 37.1 C 05/07/21 00:25 Pulse 89 05/07/21 06:20 Resp 16 05/07/21 06:20 BP 156/87 H 05/07/21 06:20 Pulse Ox 98 05/07/21 06:20 - Orders/Labs/Meds Orders: Active Orders 24 hr Category Date Time Status EKG Documentation Completion [RC] ASDIRECTED Care 05/06/21 12:33 Active Sodium Chloride 0.9% [Saline Flush] Med 05/06/21 11:08 Active 10 ml FLUSH ASDIRECTED PRN Peripheral IV Insertion Adult [OM.PC] Routine Oth 05/06/21 11:08 Ordered EKG 12 Lead [EK] Routine Ther 05/06/21 12:32 Ordered Medication Orders Sodium Chloride (Sodium Chloride 0.9% 10 Ml Syringe) 10 ml FLUSH ASDIRECTED PRN PRN Reason: Keep Vein Open Labs: Laboratory Tests 05/06/21 05/06/21 05/06/21 Range/Units 11:35 11:35 11:35 WBC 8.9 (3.0-10.3) x10-3/uL RBC 5.14 (3.60-5.20) x10(6)uL Hgb 12.6 (11.4-15.5) g/dL Hct 38.6 (34.2-48.2) % MCV 75.0 L (76.7-100.5) fL MCH 24.6 (23.9-33.9) pg MCHC 32.7 (31.9-34.8) g/dL RDW 17.0 H (12.3-16.5) % Plt Count 409 (151-488) x10(3)uL MPV 7.3 (7.1-12.4) fL Neut % (Auto) 81.1 H (30.8-76.2) % Lymph % (Auto) 14.7 L (18.4-52.1) % [place] % (Auto) 3.0 L (4.4-15.7) % Eos % (Auto) 0.2 L (0.6-8.1) % Baso % (Auto) 1.0 (0.2-1.5) % Neut # (Auto) 7.2 H (1.5-6.3) x10-3/uL Lymph # (Auto) 1.3 (1.0-4.4) x10-3/uL [place] # (Auto) 0.3 (0.3-1.0) x10-3/uL Eos # (Auto) 0.0 (0.0-0.8) x10-3/uL Baso # (Auto) 0.1 (0.0-0.1) x10-3/uL Sodium 143 (135-145) mmol/L Potassium 3.9 (3.5-5.3) mmol/L Chloride 105 (100-110) mmol/L Carbon Dioxide 26 (21-32) mmol/L BUN 10 (7-18) mg/dL Creatinine 0.8 (0.55-1.02) mg/dL Est Cr Clr Drug Dosing 67.47 mL/min Estimated GFR (MDRD) > 60 (>60) BUN/Creatinine Ratio 12.5 (9-20) Glucose 107 (80-116) mg/dL Calcium 9.1 (8.6-10.2) mg/dL Magnesium (1.8-2.5) mg/dL Total Bilirubin 0.4 (0.1-1.3) mg/dL AST 21 D (5-25) IU/L ALT 28 D (12-36) U/L Alkaline Phosphatase 245 H (56-112) IU/L Troponin I (4.0-60.3) pg/mL C-Reactive Protein 0.6 (0.5-0.9) mg/dL Total Protein 7.4 (6.0-8.0) g/dL Albumin 3.5 (3.5-5.2) g/dL Globulin 3.9 g/dL Albumin/Globulin Ratio 0.9 Urine Color (YELLOW) Urine Appearance (CLEAR) Urine pH (5.0-6.5) Ur Specific [place] (1.010-1.025) Urine Protein (NEGATIVE) mg/dL Urine Glucose (UA) (NORMAL) mg/dL Urine Ketones (NEGATIVE) mg/dL Urine Occult Blood (NEGATIVE) Urine Nitrite (NEGATIVE) Urine Bilirubin (NEGATIVE) Urine Urobilinogen (NEGATIVE) mg/dL Ur Leukocyte Esterase (NEGATIVE) Urine RBC (0-5) Urine WBC (0-5) Ur Squamous Epith Cells (NS,R,O) Urine Bacteria (NS) Urine Mucus (NS) Salicylates (<2.8) mg/dL Urine Opiates Screen (NEGATIVE) Ur Oxycodone Screen (NEGATIVE) Ur Propoxyphene Screen (NEGATIVE) Acetaminophen (<2) ug/mL Ur Barbituates Screen (NEGATIVE) Ur Tricyclics Screen (NEGATIVE) Ur Phencyclidine Scrn (NEGATIVE) Ur Amphetamine Screen (NEGATIVE) Urine MDMA Screen (NEGATIVE) U Benzodiazepines Scrn (NEGATIVE) U Cocaine Metab Screen (NEGATIVE) U Marijuana (THC) Screen (NEGATIVE) Ethyl Alcohol (<0.03) % SARS-CoV-2 RNA (IRVIN) (NEGATIVE) 06/05/06/21 05/06/21 Range/Units 11:35 11:35 11:35 WBC (3.0-10.3) x10-3/uL RBC (3.60-5.20) x10(6)uL Hgb (11.4-15.5) g/dL Hct (34.2-48.2) % MCV (76.7-100.5) fL MCH (23.9-33.9) pg MCHC (31.9-34.8) g/dL RDW (12.3-16.5) % Plt Count (151-488) x10(3)uL MPV (7.1-12.4) fL Neut % (Auto) (30.8-76.2) % Lymph % (Auto) (18.4-52.1) % [place] % (Auto) (4.4-15.7) % Eos % (Auto) (0.6-8.1) % Baso % (Auto) (0.2-1.5) % Neut # (Auto) (1.5-6.3) x10-3/uL Lymph # (Auto) (1.0-4.4) x10-3/uL [place] # (Auto) (0.3-1.0) x10-3/uL Eos # (Auto) (0.0-0.8) x10-3/uL Baso # (Auto) (0.0-0.1) x10-3/uL Sodium (135-145) mmol/L Potassium (3.5-5.3) mmol/L Chloride (100-110) mmol/L Carbon Dioxide (21-32) mmol/L BUN (7-18) mg/dL Creatinine (0.55-1.02) mg/dL Est Cr Clr Drug Dosing mL/min Estimated GFR (MDRD) (>60) BUN/Creatinine Ratio (9-20) Glucose (80-116) mg/dL Calcium (8.6-10.2) mg/dL Magnesium 1.7 L (1.8-2.5) mg/dL Total Bilirubin (0.1-1.3) mg/dL AST (5-25) IU/L ALT (12-36) U/L Alkaline Phosphatase (56-112) IU/L Troponin I < 4.0 L (4.0-60.3) pg/mL C-Reactive Protein (0.5-0.9) mg/dL Total Protein (6.0-8.0) g/dL Albumin (3.5-5.2) g/dL Globulin g/dL Albumin/Globulin Ratio Urine Color (YELLOW) Urine Appearance (CLEAR) Urine pH (5.0-6.5) Ur Specific [place] (1.010-1.025) Urine Protein (NEGATIVE) mg/dL Urine Glucose (UA) (NORMAL) mg/dL Urine Ketones (NEGATIVE) mg/dL Urine Occult Blood (NEGATIVE) Urine Nitrite (NEGATIVE) Urine Bilirubin (NEGATIVE) Urine Urobilinogen (NEGATIVE) mg/dL Ur Leukocyte Esterase (NEGATIVE) Urine RBC (0-5) Urine WBC (0-5) Ur Squamous Epith Cells (NS,R,O) Urine Bacteria (NS) Urine Mucus (NS) Salicylates 5.2 (<2.8) mg/dL Urine Opiates Screen (NEGATIVE) Ur Oxycodone Screen (NEGATIVE) Ur Propoxyphene Screen (NEGATIVE) Acetaminophen < 2 L (<2) ug/mL Ur Barbituates Screen (NEGATIVE) Ur Tricyclics Screen (NEGATIVE) Ur Phencyclidine Scrn (NEGATIVE) Ur Amphetamine Screen (NEGATIVE) Urine MDMA Screen (NEGATIVE) U Benzodiazepines Scrn (NEGATIVE) U Cocaine Metab Screen (NEGATIVE) U Marijuana (THC) Screen (NEGATIVE) Ethyl Alcohol (<0.03) % SARS-CoV-2 RNA (IRVIN) (NEGATIVE) 05/06/21 05/06/21 05/06/21 Range/Units 11:35 15:25 15:25 WBC (3.0-10.3) x10-3/uL RBC (3.60-5.20) x10(6)uL Hgb (11.4-15.5) g/dL Hct (34.2-48.2) % MCV (76.7-100.5) fL MCH (23.9-33.9) pg MCHC (31.9-34.8) g/dL RDW (12.3-16.5) % Plt Count (151-488) x10(3)uL MPV (7.1-12.4) fL Neut % (Auto) (30.8-76.2) % Lymph % (Auto) (18.4-52.1) % [place] % (Auto) (4.4-15.7) % Eos % (Auto) (0.6-8.1) % Baso % (Auto) (0.2-1.5) % Neut # (Auto) (1.5-6.3) x10-3/uL Lymph # (Auto) (1.0-4.4) x10-3/uL [place] # (Auto) (0.3-1.0) x10-3/uL Eos # (Auto) (0.0-0.8) x10-3/uL Baso # (Auto) (0.0-0.1) x10-3/uL Sodium (135-145) mmol/L Potassium (3.5-5.3) mmol/L Chloride (100-110) mmol/L Carbon Dioxide (21-32) mmol/L BUN (7-18) mg/dL Creatinine (0.55-1.02) mg/dL Est Cr Clr Drug Dosing mL/min Estimated GFR (MDRD) (>60) BUN/Creatinine Ratio (9-20) Glucose (80-116) mg/dL Calcium (8.6-10.2) mg/dL Magnesium (1.8-2.5) mg/dL Total Bilirubin (0.1-1.3) mg/dL AST (5-25) IU/L ALT (12-36) U/L Alkaline Phosphatase (56-112) IU/L Troponin I (4.0-60.3) pg/mL C-Reactive Protein (0.5-0.9) mg/dL Total Protein (6.0-8.0) g/dL Albumin (3.5-5.2) g/dL Globulin g/dL Albumin/Globulin Ratio Urine Color Yellow (YELLOW) Urine Appearance Cloudy (CLEAR) Urine pH 6.5 (5.0-6.5) Ur Specific [place] 1.020 (1.010-1.025) Urine Protein Trace (NEGATIVE) mg/dL Urine Glucose (UA) Normal (NORMAL) mg/dL Urine Ketones 15 H (NEGATIVE) mg/dL Urine Occult Blood Moderate H (NEGATIVE) Urine Nitrite Negative (NEGATIVE) Urine Bilirubin Negative (NEGATIVE) Urine Urobilinogen 1 H (NEGATIVE) mg/dL Ur Leukocyte Esterase Negative (NEGATIVE) Urine RBC 5-10 H (0-5) Urine WBC 0-5 (0-5) Ur Squamous Epith Cells Moderate H (NS,R,O) Urine Bacteria Moderate H (NS) Urine Mucus Many H (NS) Salicylates (<2.8) mg/dL Urine Opiates Screen Positive H (NEGATIVE) Ur Oxycodone Screen Negative (NEGATIVE) Ur Propoxyphene Screen Negative (NEGATIVE) Acetaminophen (<2) ug/mL Ur Barbituates Screen Negative (NEGATIVE) Ur Tricyclics Screen Negative (NEGATIVE) Ur Phencyclidine Scrn Negative (NEGATIVE) Ur Amphetamine Screen Negative (NEGATIVE) Urine MDMA Screen Negative (NEGATIVE) U Benzodiazepines Scrn Positive H (NEGATIVE) U Cocaine Metab Screen Negative (NEGATIVE) U Marijuana (THC) Screen Negative (NEGATIVE) Ethyl Alcohol < 0.03 (<0.03) % SARS-CoV-2 RNA (IRVIN) (NEGATIVE) 05/06/21 Range/Units 18:36 WBC (3.0-10.3) x10-3/uL RBC (3.60-5.20) x10(6)uL Hgb (11.4-15.5) g/dL Hct (34.2-48.2) % MCV (76.7-100.5) fL MCH (23.9-33.9) pg MCHC (31.9-34.8) g/dL RDW (12.3-16.5) % Plt Count (151-488) x10(3)uL MPV (7.1-12.4) fL Neut % (Auto) (30.8-76.2) % Lymph % (Auto) (18.4-52.1) % [place] % (Auto) (4.4-15.7) % Eos % (Auto) (0.6-8.1) % Baso % (Auto) (0.2-1.5) % Neut # (Auto) (1.5-6.3) x10-3/uL Lymph # (Auto) (1.0-4.4) x10-3/uL [place] # (Auto) (0.3-1.0) x10-3/uL Eos # (Auto) (0.0-0.8) x10-3/uL Baso # (Auto) (0.0-0.1) x10-3/uL Sodium (135-145) mmol/L Potassium (3.5-5.3) mmol/L Chloride (100-110) mmol/L Carbon Dioxide (21-32) mmol/L BUN (7-18) mg/dL Creatinine (0.55-1.02) mg/dL Est Cr Clr Drug Dosing mL/min Estimated GFR (MDRD) (>60) BUN/Creatinine Ratio (9-20) Glucose (80-116) mg/dL Calcium (8.6-10.2) mg/dL Magnesium (1.8-2.5) mg/dL Total Bilirubin (0.1-1.3) mg/dL AST (5-25) IU/L ALT (12-36) U/L Alkaline Phosphatase (56-112) IU/L Troponin I (4.0-60.3) pg/mL C-Reactive Protein (0.5-0.9) mg/dL Total Protein (6.0-8.0) g/dL Albumin (3.5-5.2) g/dL Globulin g/dL Albumin/Globulin Ratio Urine Color (YELLOW) Urine Appearance (CLEAR) Urine pH (5.0-6.5) Ur Specific [place] (1.010-1.025) Urine Protein (NEGATIVE) mg/dL Urine Glucose (UA) (NORMAL) mg/dL Urine Ketones (NEGATIVE) mg/dL Urine Occult Blood (NEGATIVE) Urine Nitrite (NEGATIVE) Urine Bilirubin (NEGATIVE) Urine Urobilinogen (NEGATIVE) mg/dL Ur Leukocyte Esterase (NEGATIVE) Urine RBC (0-5) Urine WBC (0-5) Ur Squamous Epith Cells (NS,R,O) Urine Bacteria (NS) Urine Mucus (NS) Salicylates (<2.8) mg/dL Urine Opiates Screen (NEGATIVE) Ur Oxycodone Screen (NEGATIVE) Ur Propoxyphene Screen (NEGATIVE) Acetaminophen (<2) ug/mL Ur Barbituates Screen (NEGATIVE) Ur Tricyclics Screen (NEGATIVE) Ur Phencyclidine Scrn (NEGATIVE) Ur Amphetamine Screen (NEGATIVE) Urine MDMA Screen (NEGATIVE) U Benzodiazepines Scrn (NEGATIVE) U Cocaine Metab Screen (NEGATIVE) U Marijuana (THC) Screen (NEGATIVE) Ethyl Alcohol (<0.03) % SARS-CoV-2 RNA (IRVIN) Negative (NEGATIVE) Meds: Medications Generic Name Dose Route Start Last Admin Trade Name Tram PRN Reason Stop Dose Admin Sodium Chloride 10 ml 05/06/21 11:08 Sodium Chloride 0.9% 10 Ml Syringe FLUSH ASDIRECTED PRN Keep Vein Open Discontinued Medications Generic Name Dose Route Start Last Admin Trade Name Tram PRN Reason Stop Dose Admin Clonazepam 1 mg 05/06/21 14:32 05/06/21 14:38 Clonazepam 1 Mg Tab PO 05/06/21 14:33 1 mg ONETIME ONE Administration Diazepam 5 mg 05/06/21 11:10 05/06/21 12:06 Diazepam 10 Mg/2 Ml Syringe IVPUSH 05/06/21 11:11 5 mg ONETIME ONE Administration Haloperidol Lactate 2.5 mg 05/06/21 12:30 Haloperidol Lactate 5 Mg/Ml Sdv IV 05/06/21 12:31 ONETIME ONE Haloperidol Lactate 5 mg 05/07/21 00:23 05/07/21 00:36 Haloperidol Lactate 5 Mg/Ml Sdv IM 05/07/21 00:24 5 mg ONETIME ONE Administration Sodium Chloride 1,000 mls @ 999 mls/hr 05/06/21 12:30 05/06/21 12:55 Normal Saline IV 05/06/21 13:30 Not Given .BOLUS ONE Ketorolac Tromethamine 30 mg 05/06/21 11:10 05/06/21 12:05 Ketorolac 30 Mg/Ml Sdv IVPUSH 05/06/21 11:11 30 mg ONETIME ONE Administration Lorazepam 1 mg 05/06/21 12:32 Lorazepam 2 Mg/Ml Sdv IVPUSH 05/06/21 12:33 ONETIME ONE Lorazepam 1 mg 05/07/21 00:23 05/07/21 00:37 Lorazepam 2 Mg/Ml Sdv IM 05/07/21 00:24 1 mg ONETIME ONE Administration - Re-Assessments/Exams Free Text/Narrative Re-Assessment/Exam: 05/06/21 12:50: Patient has been given normal saline and she has also been given Toradol IM IV. She initially had a temperature of 100.4F but reevaluation showed into been 99. All of her lab tests are reassuringly normal. She has yet to provide us with a urine. At this point, the patient is reporting really little to no relief of her pain and still is stating it is a 10/10. She is continued to be able to move her arms and legs normally and symmetrically. I have told the patient that I would not provide her with any narcotic type pain medications and following this she became very vocal telling me that I was "not addressing her pain" and that "I just want to go home and I'm going to kill myself" and "I don't want to be alive anymore". She then pulled her IV out and was attempting to leave. The nursing staff was able to de-escalate the situation and was able to convince the patient to stay in her room. At this point she appears to be a danger to herself I will have [facility] evaluate the patient. 05/06/21 14:30: Freddy from [facility] is evaluating the patient. She has remained hemodynamically and neurologically stable. 05/06/21 15:25: I discussed the patient with Yanick Hayes, and he feels that the she could not be cleared for discharge and will need psychiatric admission. He will attempt to assist us with placement of the patient. 05/06/21 15:35: After discussing the patient with the [facility] psychiatric watch electrician, Freddy, I have placed the patient on a 72 hour hold secondary to her repeated statements that she would go home and kill herself and repeatedly stating that she wants to . 05/06/21 16:10: Al from [facility] reports that [facility] does have room and would be willing to consider the patient for admission but the patient would have to do so voluntarily. I will discuss this with the patient. 05/06/21 16:25: I discussed all this with the patient. She is still very tearful she is also still rather ambivalent on suicidal ideation and plan. She would be willing to voluntarily go to [facility]. Therefore we will present the information to this facility. For now, we will continue to maintain a safe and protected environment for the patient. 05/06/21 18:30: Patient been presented to multiple psych facilities. In addition to the standard testing, they have requested [facility] test to be performed. I order this test. Patient continues to be withdrawn but is calm and cooperative. She intermittently will complain of pain but is mostly appearing to be resting comfortably. 05/07/21 00:10: Patient has been presented to multiple psych facilities and has been refused secondary to "medical problems/issues" area and the patient remains hemodynamically stable. She continues to be cooperative. He has been asking for "something to help her sleep". She does not appear to be in any acute pain at present. I will give the patient Haldol 5 mg and Ativan 1 mg IM. We will continue to provide a safe and protected environment for the patient. 05/07/21 07:10: Patient mostly slept through the night. She has remained calm and cooperative. So far, no psychiatric facility will accept the patient seco ndary to her "medical issues". The patient remains hemodynamically and has not been given anything else for pain and she has been tolerating this well. She is showing no signs of acute an uncontrolled pain at present. At this point, care of the patient will go to Dr. Ruff. Please see his note in regard to the patient's further clinical course and disposition. Departure - Departure Time of Disposition: 07:10 Disposition: Still A Patient 30 Clinical Impression: Chronic back pain greater than 3 months duration, Threatening suicide Major depression Qualifiers: Major depression recurrence: unspecified whether recurrent Active/Remission status: currently active Major depression episode severity: severe Psychotic features: without psychotic features Qualified Code(s): F32.2 - Major depressive disorder, single episode, severe without psychotic features - Discharge Information Referrals: PCP,None [Primary Care Provider] - Sepsis Event Note (ED) - Focused Exam Vital Signs: Vital Signs Temp Pulse Resp BP Pulse Ox 05/07/21 06:20 89 16 156/87 H 98 05/07/21 00:25 37.1 C 73 16 148/85 H 97 - My Orders Last 24 Hours: My Active Orders 05/06/21 11:08 Sodium Chloride 0.9% [Saline Flush] 10 ml FLUSH ASDIRECTED PRN Peripheral IV Insertion Adult [OM.PC] Routine 05/06/21 12:32 EKG 12 Lead [EK] Routine 05/06/21 12:33 EKG Documentation Completion [RC] ASDIRECTED - Assessment/Plan Last 24 Hours: My Active Orders 05/06/21 11:08 Sodium Chloride 0.9% [Saline Flush] 10 ml FLUSH ASDIRECTED PRN Peripheral IV Insertion Adult [OM.PC] Routine 05/06/21 12:32 EKG 12 Lead [EK] Routine 05/06/21 12:33 EKG Documentation Completion [RC] ASDIRECTED
[2021-05-06] MEDS ORDERED: Sodium Chloride 0.9% 10 ML Syringe FLUSH PRN (11:08)
[2021-05-06] MEDS ORDERED: Ketorolac 30 MG/ML SDV IVPUSH ONE (11:10)
[2021-05-06] MEDS ORDERED: Haloperidol Lactate 5 MG/ML SDV IV ONE (12:30)
[2021-05-06] MEDS ORDERED: Sodium Chloride 0.9% 1,000 ML IV ONE (12:30)
[2021-05-06] MEDS ORDERED: LORazepam 2 MG/ML SDV IVPUSH ONE (12:32)
[2021-05-06] MEDS ORDERED: ClonazePAM 1 MG Tab PO ONE (14:32)
[2021-05-06 16:46] LABS: ACETAMINOPHEN < 2 ug/mL (<2)
[2021-05-07] MEDS ORDERED: Haloperidol Lactate 5 MG/ML SDV IM ONE (00:23)
[2021-05-07] MEDS ORDERED: LORazepam 2 MG/ML SDV IM ONE (00:23)
[2021-05-07] MEDS ORDERED: Ketorolac 30 MG/ML SDV IM STA (08:11)
--- NOTE | 2021-05-07 08:59 | PCM.SN.2 ---
- Free Text/Narrative Note: Anjum Jones is a 56 YO WF who was seen by Dr Teja Mead yesterday due to chronic pain. Dr Mead found out that she is going from one doctor to the other for narcotic pain medications. She was requesting for narcotics but DR Mead didn't give it to her so she made a threat that if she is discharged to home she will commit suicide. I reevaluated her this morning and talked to Dr Mead and he suggested that if patient is no suicidal anymore then she can go home. I did talk to Lakeshia with [facility] and when asked if she is still suicidal she said " I'm not suicidal but I need a ride because I domn't have one and I live 23 miles from here." She was also given Toradol 60 mg IM for her pain and a prescr iption for toradol 10 mg TID PRN for pain#15
[2021-05-07 09:36] VITALS: BP 141/95; PULSE 83
== END 2021-05-07 09:30 | disposition home or self-care (01) ==
LOC: FB.ED 10:41
DX: G89.29 Other chronic pain (principal); M54.5 Low back pain; F32.2 Major depressive disorder, single episode, severe without psychotic features; E66.9 Obesity, unspecified; E78.00 Pure hypercholesterolemia, unspecified; I10 Essential (primary) hypertension; Z72.0 Tobacco use; Z20.822 Contact with and (suspected) exposure to COVID-19; Z68.30 Body mass index [BMI] 30.0-30.9, adult; Z88.0 Allergy status to penicillin; Z91.048 Other nonmedicinal substance allergy status; Z88.1 Allergy status to other antibiotic agents; Z88.8 Allergy status to other drugs, medicaments and biological substances
CPT/HCPCS: 36415; 80053; 80143; 80179; 80305-QW; 80307; 81001; 83735; 84484; 85025; 86140; 93005; 93010; 96372; 96374; 96375; 99285; 99285-25; A9270-GY; J1630; J1885; J2060; J3360; U0002

== ENCOUNTER → 2021-06-13 | Emergency (ER) | payer MEDICARE, MEDICAID ==
[~2021-06-13] MED LIST: Diazepam 5 MG Tab PO STA; Ketorolac 30 MG/ML SDV IVPUSH STA; MVI, Adult with Vitamin K 10 ML, Thiamine 100 MG, Folic Acid 1 MG, Magnesium Sulfate 3 ... IV SCH; Prochlorperazine 10 MG in Sodium Chloride 0.9% 50 ML IV STA; Sodium Chloride 0.9% 1,000 ML IV SCH; Sodium Chloride 0.9% 10 ML Syringe FLUSH PRN
[2021-06-13 13:21] VITALS: BP 165/111; PULSE 86
--- NOTE | 2021-06-13 14:11 | EDM.PDOC ---
ED HPI GENERAL MEDICAL PROBLEM - General Chief Complaint: General Stated Complaint: withdrawls Time Seen by Provider: 06/13/21 13:10 Source of Information: Reports: Patient History Limitations: Reports: No Limitations - History of Present Illness INITIAL COMMENTS - FREE TEXT/NARRATIVE: Patient is a 56 YO WF who presented to the ED because of opioid withdrawal symptoms: Nausea, vomiting, diarrhea, pain and anxiety. She usually take 60 mg of morphine for her chronic pain and her last dose was Thursday. Her symptoms started to appear Thursday. she was seen at the [facility] yesterday and was treated with IVF and clonidine. Abdomen Pain Score (Numeric/FACES): 10 - Related Data Allergies Allergy/AdvReac Type Severity Reaction Status Date / Time adhesive Allergy irritated Verified 11/28/20 10:24 skin ampicillin [From Unasyn] Allergy Itching Verified 11/28/20 10:24 carisoprodol [From Soma] Allergy Confusion Verified 11/28/20 10:24 cephalexin [Cephalexin] Allergy Rash Verified 11/28/20 10:24 diclofenac [From Voltaren] Allergy Hives Verified 11/28/20 10:24 diphenhydramine Allergy Itching, Verified 05/07/21 00:22 [From Benadryl] Keeps her awake omega-3 acid ethyl esters Allergy Rash Verified 11/28/20 10:24 quetiapine [From Seroquel] Allergy Confusion Verified 11/28/20 10:24 sulbactam [From Unasyn] Allergy Itching Verified 11/28/20 10:24 Home Meds: Home Meds cloNIDine [cloNIDine HCl] 0.1 mg PO ASDIRECTED PRN 06/13/21 [History] Past Medical History - Past Health History Medical/Surgical History: Denies Medical/Surgical History HEENT History: Reports: Impaired Vision Other HEENT History: glasses Cardiovascular History: Reports: High Cholesterol, Hypertension Respiratory History: Reports: Asthma, SOB Gastrointestinal History: Reports: Fecal Incontinence, Gastritis, Irritable Bowel Syndrome, PUD Genitourinary History: Reports: Urinary Incontinence LOADER History: Reports: 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 Other LOADER History: hysterectomy, Musculoskeletal History: Reports: Arthritis, Back Pain, Chronic, Fracture, Osteoarthritis, Other (See Below) Other Musculoskeletal History: hx fx in back, hx brittle bones, to have back reconstruction in [place] top[facility] at [facility] per Trina Fernandez Neurological History: Reports: Migraines Psychiatric History: Reports: Anxiety, Depression, Emotional Problems, Psych Hospitalization(s), Suicide Attempt, Suicidal Ideation Endocrine/Metabolic History: Reports: Obesity/BMI 30+ - Infectious Disease History Infectious Disease History: Reports: Chicken Pox, Measles - Past Surgical History HEENT Surgical History: Reports: Adenoidectomy, Oral Surgery, Tonsillectomy Cardiovascular Surgical History: Reports: None Respiratory Surgical History: Reports: None GI Surgical History: Reports: Appendectomy, Bariatric Procedure, Cholecystectomy, Colonoscopy, EGD, Other (See Below) Other GI Surgeries/Procedures: gastric bypass Female Surgical History: Reports: Hysterectomy Endocrine Surgical History: Reports: None Neurological Surgical History: Reports: Spinal Fusion, Other (See Below) Other Neurological Surgeries/Procedures: hx back surgery x 7 Musculoskeletal Surgical History: Reports: Other (See Below) Other Musculoskeletal Surgeries/Procedures:: BACK SURGERY 7x Social & Family History - Family History Family Medical History: No Pertinent Family History - Tobacco Use Tobacco Use Status *Q: Current Every Day Tobacco User Years of Tobacco use: 30 Packs/Tins Daily: 1 - Caffeine Use Caffeine Use: Reports: None Other Caffeine Use: caffeine free Caffeine Use Comment: unable to obtain - Recreational Drug Use Recreational Drug Use: No - Living Situation & Occupation Living situation: Reports: , Other (Lives with her .) Occupation: Disabled ED ROS GENERAL - Review of Systems Review Of Systems: See Below Constitutional: Reports: No Symptoms HEENT: Reports: No Symptoms Respiratory: Reports: No Symptoms Cardiovascular: Reports: No Symptoms Endocrine: Reports: No Symptoms GI/Abdominal: Reports: Nausea, Vomiting : Reports: No Symptoms Musculoskeletal: Reports: No Symptoms Skin: Reports: No Symptoms Neurological: Reports: No Symptoms Psychiatric: Reports: Agitation, Anxiety, Depression, Mood Lability ED EXAM, GENERAL - Physical Exam Exam: See Below Exam Limited By: No Limitations General Appearance: Anxious Ears: Normal External Exam, Normal Canal Nose: Normal Inspection, Normal Mucosa, No Blood Throat/Mouth: Normal Inspection, Normal Lips, Normal Teeth Head: Atraumatic, Normocephalic Neck: Normal Inspection, Supple, Non-Tender, Full Range of Motion Respiratory/Chest: No Respiratory Distress, Lungs Clear, Normal Breath Sounds, No Accessory Muscle Use, Chest Non-Tender Cardiovascular: Normal Peripheral Pulses, Regular Rate, Rhythm, No Edema, No Gal lop, No JVD, No Murmur, No Rub GI/Abdominal: Normal Bowel Sounds, Soft, Non-Tender, No Organomegaly Back Exam: Normal Inspection, Full Range of Motion Extremities: Normal Inspection, Normal Range of Motion, Non-Tender Neurological: Alert, Oriented, CN II-XII Intact, Normal Cognition, Normal Reflexes, No Motor/Sensory Deficits Psychiatric: Anxious, Depressed Mood Course - Vital Signs Text/Narrative:: Lab result was reviewed and discussed with patient Banana bag 1 L bolus Compazine 10 mg IV x1 Toradol 30 mg IV x1 Valium 10 mg PO x1 Last Recorded V/S: Last Vital Signs Temp 37.5 C 06/13/21 13:01 Pulse 86 06/13/21 13:01 Resp 36 H 06/13/21 13:01 BP 165/111 H 06/13/21 13:01 Pulse Ox 99 06/13/21 13:01 - Orders/Labs/Meds Orders: Active Orders 24 hr Category Date Time Status DRUG SCREEN, URINE ALERE [URCHEM] Stat Lab 06/13/21 13:43 Ordered MVI, Adult with Vitamin K [Infuvite Adult] 10 ml Med 06/13/21 14:15 Active Thiamine [Vitamin B-1] 100 mg Folic Acid 1 mg Magnesium Sulfate [Magnesium Sulfate 50%] 3 gm Sodium Chloride 0.9% [Normal Saline] 1,000 ml IV ASDIRECTED Sodium Chloride 0.9% [Saline Flush] Med 06/13/21 13:43 Active 10 ml FLUSH ASDIRECTED PRN Saline Lock Insert [OM.PC] Routine Oth 06/13/21 13:43 Ordered Medication Orders Multivitamins/Minerals 10 ml/Thiamine HCl 100 mg/ Folic Acid 1 mg/ Magnesium Sulfate 3 gm/ Sodium Chloride 1,017.2 mls @ 999 mls/hr IV ASDIRECTED SHIRIN Last Admin: 06/13/21 14:34 Dose: 999 mls/hr Documented by: KIMBERLEY Sodium Chloride (Sodium Chloride 0.9% 10 Ml Syringe) 10 ml FLUSH ASDIRECTED PRN PRN Reason: Keep Vein Open Labs: Laboratory Tests 06/13/21 06/13/21 06/13/21 Range/Units 13:20 13:40 13:40 WBC 10.0 (3.0-10.3) x10-3/uL RBC 5.06 (3.60-5.20) x10(6)uL Hgb 12.7 (11.4-15.5) g/dL Hct 38.7 (34.2-48.2) % MCV 76.5 L (76.7-100.5) fL MCH 25.2 (23.9-33.9) pg MCHC 32.9 (31.9-34.8) g/dL RDW 19.4 H (12.3-16.5) % Plt Count 367 (151-488) x10(3)uL MPV 6.6 L (7.1-12.4) fL Neut % (Auto) 70.7 (30.8-76.2) % Lymph % (Auto) 22.5 (18.4-52.1) % [place] % (Auto) 5.5 (4.4-15.7) % Eos % (Auto) 0.6 (0.6-8.1) % Baso % (Auto) 0.7 (0.2-1.5) % Neut # (Auto) 7.1 H (1.5-6.3) x10-3/uL Lymph # (Auto) 2.2 (1.0-4.4) x10-3/uL [place] # (Auto) 0.5 (0.3-1.0) x10-3/uL Eos # (Auto) 0.1 (0.0-0.8) x10-3/uL Baso # (Auto) 0.1 (0.0-0.1) x10-3/uL Sodium 142 (135-145) mmol/L Potassium 3.7 (3.5-5.3) mmol/L Chloride 104 (100-110) mmol/L Carbon Dioxide 25 (21-32) mmol/L BUN 10 (7-18) mg/dL Creatinine 0.7 (0.55-1.02) mg/dL Est Cr Clr Drug Dosing 76.47 mL/min Estimated GFR (MDRD) > 60 (>60) BUN/Creatinine Ratio 14.3 (9-20) Glucose 96 (80-116) mg/dL Calcium 8.8 (8.6-10.2) mg/dL Total Bilirubin 0.5 (0.1-1.3) mg/dL AST 15 D (5-25) IU/L ALT 21 D (12-36) U/L Alkaline Phosphatase 157 H (56-112) IU/L Total Protein 6.9 (6.0-8.0) g/dL Albumin 3.5 (3.5-5.2) g/dL Globulin 3.4 g/dL Albumin/Globulin Ratio 1.0 Ethyl Alcohol < 0.03 (<0.03) % Meds: Medications Generic Name Dose Route Start Last Admin Trade Name Freq PRN Reason Stop Dose Admin Multivitamins/Minerals 10 ml/ 1,017.2 mls @ 999 mls/hr 06/13/21 14:15 06/13/21 14:34 Thiamine HCl 100 mg/ Folic IV 999 mls/hr Acid 1 mg/ Magnesium Sulfate 3 ASDIRECTED SHIRIN Administration gm/ Sodium Chloride Sodium Chloride 10 ml 06/13/21 13:43 Sodium Chloride 0.9% 10 Ml Syringe FLUSH ASDIRECTED PRN Keep Vein Open Discontinued Medications Generic Name Dose Route Start Last Admin Trade Name Freq PRN Reason Stop Dose Admin Diazepam 10 mg 06/13/21 13:46 06/13/21 14:16 Diazepam 5 Mg Tab PO 06/13/21 13:47 10 mg NOW STA Administration Prochlorperazine Edisylate 10 52 mls @ 150 mls/hr 06/13/21 13:43 06/13/21 14:15 mg/ Sodium Chloride IV 06/13/21 14:03 150 mls/hr NOW STA Administration Sodium Chloride 1,000 mls @ 999 mls/hr 06/13/21 13:45 Normal Saline IV ASDIRECTED SHIRIN Ketorolac Tromethamine 30 mg 06/13/21 13:43 06/13/21 14:10 Ketorolac 30 Mg/Ml Sdv IVPUSH 06/13/21 13:44 30 mg NOW STA Administration Departure - Departure Time of Disposition: 15:30 Disposition: DC/Tfer to Inpt Rehab Fac 62 Condition: Good Clinical Impression: Opioid withdrawal, Chronic pain syndrome, Anxiety - Discharge Information Forms: ED Department Discharge Sepsis Event Note (ED) - Evaluation Sepsis Screening Result: No Definite Risk - Focused Exam Vital Signs: Vital Signs Temp Pulse Resp BP Pulse Ox 06/13/21 13:01 37.5 C 86 36 H 165/111 H 99 - My Orders Last 24 Hours: My Active Orders 06/13/21 13:43 DRUG SCREEN, URINE ALERE [URCHEM] Stat Sodium Chloride 0.9% [Saline Flush] 10 ml FLUSH ASDIRECTED PRN Saline Lock Insert [OM.PC] Routine 06/13/21 14:15 MVI, Adult with Vitamin K [Infuvite Adult] 10 ml Thiamine [Vitamin B-1] 100 mg Folic Acid 1 mg Magnesium Sulfate [Magnesium Sulfate 50%] 3 gm Sodium Chloride 0.9% [Normal Saline] 1,000 ml IV ASDIRECTED - Assessment/Plan Last 24 Hours: My Active Orders 06/13/21 13:43 DRUG SCREEN, URINE ALERE [URCHEM] Stat Sodium Chloride 0.9% [Saline Flush] 10 ml FLUSH ASDIRECTED PRN Saline Lock Insert [OM.PC] Routine 06/13/21 14:15 MVI, Adult with Vitamin K [Infuvite Adult] 10 ml Thiamine [Vitamin B-1] 100 mg Folic Acid 1 mg Magnesium Sulfate [Magnesium Sulfate 50%] 3 gm Sodium Chloride 0.9% [Normal Saline] 1,000 ml IV ASDIRECTED
== END ==
LOC: FB.ED 13:01
DX: F41.9 Anxiety disorder, unspecified (principal); G89.4 Chronic pain syndrome; F11.23 Opioid dependence with withdrawal; E78.00 Pure hypercholesterolemia, unspecified; I10 Essential (primary) hypertension; E66.9 Obesity, unspecified; Z88.0 Allergy status to penicillin; Z91.048 Other nonmedicinal substance allergy status; Z88.6 Allergy status to analgesic agent; Z88.8 Allergy status to other drugs, medicaments and biological substances; Z68.1 Body mass index [BMI] 19.9 or less, adult; Z72.0 Tobacco use; Z79.899 Other long term (current) drug therapy
CPT/HCPCS: 36415; 80053; 80305-QW; 80307; 85025; 96365; 96367; 96375; 99284-25; A9270-GY; J0780; J1885; J3411; J3475; J3490; J7030

== ENCOUNTER 2021-06-15 12:14 | Emergency (ER) | payer MEDICARE, MEDICAID ==
[2021-06-15] MEDS ORDERED: Ondansetron 4 MG Tab.DIS PO ONE (12:15)
[2021-06-15] MEDS ORDERED: Ondansetron 4 MG/2 ML SDV IVPUSH ONE (13:49)
[2021-06-15] MEDS ORDERED: Ketorolac 30 MG/ML SDV IVPUSH ONE (13:49)
[2021-06-15] MEDS ORDERED: Sodium Chloride 0.9% 1,000 ML IV SCH (14:00)
[2021-06-15] MEDS: diphenhydrAMINE 50 MG/ML SDV IVPUSH ONE ×2 (14:15→14:36)
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
[2021-06-15] MEDS ORDERED: cloNIDine 0.1 MG Tab PO ONE (15:43)
[2021-06-15 16:08] VITALS: BP 145/84
[2021-06-15 16:16] VITALS: PULSE 60
[2021-06-15] MEDS ORDERED: hydrOXYzine HCl 25 MG Tab PO SCH (21:00)
== END 2021-06-15 16:00 | disposition home or self-care (01) ==
LOC: FB.ED 12:14
DX: R10.10 Upper abdominal pain, unspecified (principal); F41.9 Anxiety disorder, unspecified; F13.239 Sedative, hypnotic or anxiolytic dependence with withdrawal, unspecified; I10 Essential (primary) hypertension; J45.909 Unspecified asthma, uncomplicated; E66.9 Obesity, unspecified; Z68.1 Body mass index [BMI] 19.9 or less, adult; Z72.0 Tobacco use; Z91.048 Other nonmedicinal substance allergy status; Z88.0 Allergy status to penicillin; Z88.8 Allergy status to other drugs, medicaments and biological substances; Z88.1 Allergy status to other antibiotic agents; Z88.6 Allergy status to analgesic agent; Z79.899 Other long term (current) drug therapy
CPT/HCPCS: 81001; 96374; 96375; 99284; A9270; J1885; J2405; J7030; J1200

== ENCOUNTER 2021-06-16 09:52 | Emergency (ER) | payer MEDICARE, MEDICAID ==
[2021-06-16 10:13] VITALS: BP 176/101; PULSE 99
[2021-06-16] MEDS ORDERED: Ketorolac 30 MG/ML SDV IM ONE (11:04)
[2021-06-16] MEDS ORDERED: busPIRone 5 MG Tab PO ONE (11:04)
[2021-06-16] MEDS ORDERED: Ondansetron 4 MG Tab.DIS PO ONE (11:04)
--- NOTE | 2021-06-16 11:17 | EDM.PDOC ---
ED HPI GENERAL MEDICAL PROBLEM - General Chief Complaint: General Stated Complaint: ANXIETY Time Seen by Provider: 06/16/21 10:50 Source of Information: Reports: Patient History Limitations: Reports: No Limitations - History of Present Illness INITIAL COMMENTS - FREE TEXT/NARRATIVE: c/o narcotic withdrawal [facility] indicates pt had only 3 fills of opiates in past 12 months, in Oct and Lucio and Mar took a Zofran last nite, none today, did not fill the hydroxyzine, says it makes her jittery (which she did not say yesterday) has had diarrhea and abd cramping was not dehydrated at recent visits despite her c/o main c/o is anxious, pt has gone to multiple hospitals in past seeking controlled meds, pt told that controlled meds could not be given today hydroxyzine IM offered as alternative to PO, pt declined, will give a dose of buspirone not used moist heat in tub or shower labs neg 3d ago this is 3rd ED visit for same sxs in past 3d Abdomen Pain Score (Numeric/FACES): 10 - Related Data Allergies Allergy/AdvReac Type Severity Reaction Status Date / Time adhesive Allergy irritated Verified 06/15/21 13:13 skin ampicillin [From Unasyn] Allergy Itching Verified 06/15/21 13:13 carisoprodol [From Soma] Allergy Confusion Verified 06/15/21 13:13 cephalexin [Cephalexin] Allergy Rash Verified 06/15/21 13:13 diclofenac [From Voltaren] Allergy Hives Verified 11/28/20 10:24 diphenhydramine Allergy jittery Verified 06/15/21 14:36 [From Benadryl] omega-3 acid ethyl esters Allergy Rash Verified 06/15/21 13:13 quetiapine [From Seroquel] Allergy Confusion Verified 11/28/20 10:24 sulbactam [From Unasyn] Allergy Itching Verified 06/15/21 13:13 Home Meds: Home Meds cloNIDine [cloNIDine HCl] 0.1 mg PO ASDIRECTED PRN 06/13/21 [History] Ondansetron [Ondansetron ODT] 4 mg PO Q6H PRN #8 tab.rapdis 06/15/21 [Rx] hydrOXYzine HCL [Hydroxyzine HCl] 50 mg PO TID #30 tablet 06/15/21 [Rx] busPIRone [Buspar] 5 mg PO TID #21 tablet 06/16/21 [Rx] Past Medical History - Past Health History Medical/Surgical History: Denies Medical/Surgical History HEENT History: Reports: Impaired Vision Other HEENT History: glasses Cardiovascular History: Reports: High Cholesterol, Hypertension Respiratory History: Reports: Asthma, SOB Gastrointestinal History: Reports: Fecal Incontinence, Gastritis, Irritable Bowel Syndrome, PUD Genitourinary History: Reports: Urinary Incontinence [employer]IOR [employer] History: Reports: 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 Other [employer]IOR [employer]ER History: hysterectomy, Musculoskeletal History: Reports: Arthritis, Back Pain, Chronic, Fracture, Osteoarthritis, Other (See Below) Other Musculoskeletal History: hx fx in back, hx brittle bones Neurological History: Reports: Migraines Psychiatric History: Reports: Anxiety, Depression, Emotional Problems, Psych Hospitalization(s), Suicide Attempt, Suicidal Ideation Endocrine/Metabolic History: Reports: Obesity/BMI 30+ Hematologic History: Reports: None Oncologic (Cancer) History: Reports: None Dermatologic History: Reports: None - Infectious Disease History Infectious Disease History: Reports: Chicken Pox, Measles - Past Surgical History HEENT Surgical History: Reports: Adenoidectomy, Oral Surgery, Tonsillectomy Cardiovascular Surgical History: Reports: None Respiratory Surgical History: Reports: None GI Surgical History: Reports: Appendectomy, Bariatric Procedure, Cholecystectomy, Colonoscopy, EGD, Other (See Below) Other GI Surgeries/Procedures: gastric bypass Female Surgical History: Reports: Hysterectomy Endocrine Surgical History: Reports: None Neurological Surgical History: Reports: Spinal Fusion, Other (See Below) Other Neurological Surgeries/Procedures: hx back surgery x 7 Musculoskeletal Surgical History: Reports: Other (See Below) Other Musculoskeletal Surgeries/Procedures:: BACK SURGERY 7x, reconstructive back surgery in 01/06 Oncologic Surgical History: Reports: None Dermatological Surgical History: Reports: None Social & Family History - Family History Family Medical History: No Pertinent Family History - Tobacco Use Tobacco Use Status *Q: Current Every Day Tobacco User Years of Tobacco use: 35 Packs/Tins Daily: 1 - Caffeine Use Caffeine Use: Reports: None Other Caffeine Use: caffeine free Caffeine Use Comment: unable to obtain - Recreational Drug Use Recreational Drug Use: No - Living Situation & Occupation Living situation: Reports: , Other (Lives with her .) Occupation: Disabled ED ROS GENERAL - Review of Systems Review Of Systems: See Below Constitutional: Reports: No Symptoms HEENT: Reports: No Symptoms Respiratory: Reports: No Symptoms Cardiovascular: Reports: No Symptoms Endocrine: Reports: No Symptoms GI/Abdominal: Reports: Abdominal Pain, Diarrhea, Nausea : Reports: No Symptoms Musculoskeletal: Reports: No Symptoms Skin: Reports: No Symptoms Neurological: Reports: No Symptoms Psychiatric: Reports: Anxiety Hematologic/Lymphatic: Reports: No Symptoms Immunologic: Reports: No Symptoms ED EXAM, GENERAL - Physical Exam Exam: See Below Exam Limited By: No Limitations General Appearance: Alert, WD/WN, Anxious Ears: Hearing Grossly Normal Nose: Normal Inspection, Normal Mucosa, No Blood Throat/Mouth: Normal Lips, Normal Teeth, Normal Oropharynx Head: Atraumatic, Normocephalic Neck: Normal Inspection, Supple, Non-Tender, Full Range of Motion Respiratory/Chest: No Respiratory Distress, Lungs Clear, Normal Breath Sounds Cardiovascular: Regular Rate, Rhythm, No Edema, No Murmur GI/Abdominal: Normal Bowel Sounds, Soft, Non-Tender, No Distention Back Exam: Normal Inspection, Full Range of Motion Extremities: Normal Inspection, Normal Range of Motion, Non-Tender, No Pedal Edema Neurological: Alert, Oriented, CN II-XII Intact, Normal Cognition, Normal Gait, No Motor/Sensory Deficits Psychiatric: Normal Affect, Normal Mood Skin Exam: Warm, Dry, Intact, Normal Color, No Rash Lymphatic: No Adenopathy Course - Vital Signs Last Recorded V/S: Last Vital Signs Temp 37.7 C 06/16/21 09:53 Pulse 99 06/16/21 09:53 Resp 20 06/16/21 09:53 BP 176/101 H 06/16/21 09:53 Pulse Ox 99 06/16/21 09:53 - Orders/Labs/Meds Meds: Medications Discontinued Medications Generic Name Dose Route Start Last Admin Trade Name Freq PRN Reason Stop Dose Admin Buspirone HCl 5 mg 06/16/21 11:04 06/16/21 11:19 Buspirone 5 Mg Tab PO 06/16/21 11:05 5 mg ONETIME ONE Administration Ketorolac Tromethamine 60 mg 06/16/21 11:04 06/16/21 11:20 Ketorolac 30 Mg/Ml Sdv IM 06/16/21 11:05 60 mg ONETIME ONE Administration Ondansetron HCl 4 mg 06/16/21 11:04 06/16/21 11:20 Ondansetron 4 Mg Tab.Dis PO 06/16/21 11:05 4 mg ONETIME ONE Administration - Re-Assessments/Exams Free Text/Narrative Re-Assessment/Exam: 06/16/21 11:22 PE unremarkable, turgor wnl, no localized findings pt has been unwilling to go to counseling in past despite her stated anxiety 06/16/21 11:57 pt did come down after she had rested her and gotten Toradol and Zofran and buspirone, will give buspirone 5 mg TID as a 1 wk trial Departure - Departure Time of Disposition: 11:54 Disposition: Home, Self-Care 01 Condition: Good Clinical Impression: Anxiety - Discharge Information *PRESCRIPTION DRUG MONITORING PROGRAM REVIEWED*: Yes *COPY OF PRESCRIPTION DRUG MONITORING REPORT IN PATIENT LORRAINE: No Prescriptions: busPIRone [Buspar] 5 mg PO TID #21 tablet Referrals: Alessandro Shea MD [Primary Care Provider] - Forms: ED Department Discharge Additional Instructions: For anxiety, take buspirone 5 mg 1 tab 3 times a day for one week. For nausea, take ondansetron ODT 4 mg 1 tab under the tongue every 6 hours as needed. It is important to work with a counselor to develop strategies to help with your anxieties. See your doctor in 1-2 days for further recommendations. Sepsis Event Note (ED) - Evaluation Sepsis Screening Result: No Definite Risk - Focused Exam Vital Signs: Vital Signs Temp Pulse Resp BP Pulse Ox 06/16/21 09:53 37.7 C 99 20 176/101 H 99
== END 2021-06-16 12:04 | disposition home or self-care (01) ==
LOC: FB.ED 09:52
DX: F41.9 Anxiety disorder, unspecified (principal); I10 Essential (primary) hypertension; J45.909 Unspecified asthma, uncomplicated; E66.9 Obesity, unspecified; Z68.1 Body mass index [BMI] 19.9 or less, adult; Z72.0 Tobacco use; Z91.048 Other nonmedicinal substance allergy status; Z88.0 Allergy status to penicillin; Z88.1 Allergy status to other antibiotic agents; Z88.8 Allergy status to other drugs, medicaments and biological substances; Z88.6 Allergy status to analgesic agent; Z79.899 Other long term (current) drug therapy
CPT/HCPCS: 96372; 99283; A9270; J1885

== ENCOUNTER 2022-07-07 07:37 | Day surgery (SDC) | payer MEDICARE, MEDICAID ==
[~2022-07-07 07:37] MED LIST changes: -Diazepam 5 MG Tab PO STA; -Ketorolac 30 MG/ML SDV IVPUSH STA; +Lactated Ringers 1,000 ML IV SCH; -MVI, Adult with Vitamin K 10 ML, Thiamine 100 MG, Folic Acid 1 MG, Magnesium Sulfate 3 ... IV SCH; -Prochlorperazine 10 MG in Sodium Chloride 0.9% 50 ML IV STA; -Sodium Chloride 0.9% 1,000 ML IV SCH
[2022-07-07] MEDS ORDERED: Propofol 200 MG/20 ML SDV IV ONE (07:38)
[2022-07-07] MEDS ORDERED: Sodium Chloride 0.9% 10 ML Syringe FLUSH PRN (07:45)
[2022-07-07] MEDS ORDERED: Lactated Ringers 1,000 ML IV SCH (07:45)
[2022-07-07 10:12] VITALS: BP 178/95; PULSE 58
== END 2022-07-07 10:08 | disposition home or self-care (01) ==
LOC: FB.SDS 07:37
PROVIDERS: ATTEND Surgery
DX: K21.00 Gastro-esophageal reflux disease with esophagitis, without bleeding (principal); I10 Essential (primary) hypertension; F41.9 Anxiety disorder, unspecified; J45.909 Unspecified asthma, uncomplicated; F32.A Depression, unspecified; E78.00 Pure hypercholesterolemia, unspecified; G43.909 Migraine, unspecified, not intractable, without status migrainosus; K58.9 Irritable bowel syndrome, unspecified; F17.210 Nicotine dependence, cigarettes, uncomplicated; G47.30 Sleep apnea, unspecified; M19.90 Unspecified osteoarthritis, unspecified site; E66.9 Obesity, unspecified; M80.00XA Age-related osteoporosis with current pathological fracture, unspecified site, initial encounter for fracture; Z68.21 Body mass index [BMI] 21.0-21.9, adult; Z90.49 Acquired absence of other specified parts of digestive tract; Z79.82 Long term (current) use of aspirin; Z88.0 Allergy status to penicillin; Z88.6 Allergy status to analgesic agent; Z88.1 Allergy status to other antibiotic agents; Z88.8 Allergy status to other drugs, medicaments and biological substances; Z98.890 Other specified postprocedural states; Z90.710 Acquired absence of both cervix and uterus; Z95.1 Presence of aortocoronary bypass graft
CPT/HCPCS: 00731; 43239; 88305; 88313; J2704; J7120